=== PATIENT | male | born 1960 | race Caucasian/White ===

== ENCOUNTER 2024-04-22 11:18 | Emergency (ER) | payer MEDICARE, OTHER, SELFPAY ==
[2024-04-22] VITALS (7 sets, daily range): BP systolic 132–156; BP diastolic 79–141; BMI 34.5
[2024-04-22 11:44] LABS: % Basophils 0.3 % (0-2); % Eosinophils 0.5 % (0-6); % Immature Granulocytes 0.6 % (0-0.5); % Lymphocytes 13.7 % (20.5-51.1); % Neutrophils 70.9 % (42.2-75.2); Absolute Immature Granulocytes 0.1 10^3/uL (0-0.05); Absolute Lymphocytes 1.1 10^3/uL (1.2-3.4); Absolute Monocytes 1.1 10^3/uL (0.1-0.6); Absolute Neutrophils 5.5 10^3/uL (1.4-6.5); Hematocrit 49.5 % (39.0-52.0); Hemoglobin 16.7 g/dL (13.0-18.0); Mean Corp Hgb Conc. 33.7 g/dL (33.0-37.0); Mean Corpuscular Hgb 31.3 pg (27.0-31.0); Mean Corpuscular Volume 92.9 fL (80.0-94.0); Mean Platelet Volume 10.8 fL (7.4-10.4); Nucleated Red Blood Cells % 0 % (-); Platelet Count 212 10^3/uL (130-400); Red Blood Cell Count 5.33 10^6/uL (4.70-6.10); Red Cell Dist. Width 12.2 % (11.5-14.5); White Blood Cell Count 7.8 10^3/uL (4.8-10.8)
--- NOTE | 2024-04-22 11:50 | ED.GENMED ---
History of Present Illness
General
Chief Complaint: Male Genito-Urinary Symptoms
Source: patient
Exam Limitations: none
Time Seen by Provider: 04/22/24 11:49
Nursing documentation reviewed up to this point in time: agreed with
History of Present Illness
History of Present Illness:
64-year-old male with history of CVA, COPD, CHF, HTN, HLD, GERD, BPH, chronic renal failure, UTIs, bipolar, schizoaffective disorder presents from [facility] stating 'I have blood in my urine.' 'My bladder and my penis hurt' when he urinates,
discomfort in bladder and penis is 'discomfort' but painful with urinating. States he noted clots in his urine.
Denies fever/chills. Denies n/v/d/c.
States he had similar symptoms in the past and needed 'surgery'
Past History
Past History
ED Past Medical History: CHF, COPD, HTN, Hypercholesterolemia and Renal failure
ED Past Surgical History: Other (removal L kidney cyst, knee surgery)
Social History
Tobacco: Former smoker
Alcohol: None
Drug: None
Review of Systems
Review of Systems
Allergies reviewed?: Yes
All Other Systems: ROS reviewed and negative except as documented in HPI and ROS
Constitutional: Denies fever or chills
Respiratory: Denies trouble breathing
Cardiac: Denies chest pain
ABD/GI: Denies nausea, vomiting, diarrhea, constipated or anorexia
: Reports dysuria and bleeding; Denies frequency, flank pain, difficulty voiding or urgency
Musculoskeletal: Reports edema (Bilateral lower extremity lymphedema)
Skin: Reports no symptoms
Neurological: Denies headache
Phy Exam
Physical Exam
Physical Exam:
GENERAL: No acute distress. A&Ox3.
CONSTITUTIONAL: Afebrile.
EYES: clear, conjunctivae normal
Neck: Supple
ENMT: moist mucus membranes
RESPIRATORY: Regular respirations, nonlabored, lungs clear.
CARDIOVASCULAR: Regular rate and rhythm, no murmurs, no rubs.
GI: Soft, nontender, normal BS
: Circumcised penis, normal-appearing external genitalia.
MUSCULOSKELETAL: Bilateral chronic lymphedema lower extremities.
SKIN: Warm, dry, pink
PSYCH: Normal mood and affect. Well kept, interactive and appropriate
NEUROLOGIC: Awake, alert and oriented. No focal neurological deficits
Course
Orders/Labs/Results
Orders:
Orders
04/22/24 11:34
Complete Blood Count/With Diff Urgent
Comprehensive Metabolic Panel Urgent
UA Reflex to Culture [Urinalysis Reflex To Culture] Urgent
Date Specimen was Collected: 04/22/24
Time Specimen was Collected: 11:33
Urine Microscopic Reflex Cult Urgent
04/22/24 12:52
CT Abd/pel Without Iv Or Oral Urgent
Comment:
Reason For Exam: hematuria w clots
04/22/24 16:40
Sulfamethox./Trimethoprim Ds [Bactrim Ds 800 mg/160 mg] 1 tablet PO NOW STA
Abnormal Lab Results
04/22/24
11:34
MCH 31.3 H pg
(27.0-31.0)
MPV 10.8 H fL
(7.4-10.4)
Abs Immat Gran (auto) 0.1 H 10^3/uL
(0-0.05)
Absolute Lymphs (auto) 1.1 L 10^3/uL
(1.2-3.4)
Absolute Monos (auto) 1.1 H 10^3/uL
(0.1-0.6)
Immature Gran % 0.6 H %
(0-0.5)
Lymphocytes % 13.7 L %
(20.5-51.1)
Monocytes % 14.0 H %
(1.7-9.3)
Carbon Dioxide 34 H mmol/L
(22-30)
BUN 29 H mg/dl
(9-20)
Glucose 114 H mg/dl
(70-99)
Ur Occult Blood Reflex 4+ A
(Negative)
Leukocyte Esterase Rfl Trace A
(Negative)
Urine RBC 70-80 A /HPF
(0-2)
Urine Albumin (Reflex) 3+ A
(Neg - Trace)
04/22/24 11:34
04/22/24 11:34
Vital Signs
Initial and Last Documented VS:
Initial Vital Signs
Pulse Resp Pulse Ox
82 22 94
04/22/24 11:27 04/22/24 11:27 04/22/24 11:27
Last Documented Vital Signs
Temp Pulse Resp BP Pulse Ox
98.2 F 77 15 144/111 93
04/22/24 11:30 04/22/24 17:30 04/22/24 17:30 04/22/24 17:00 04/22/24 16:30
MDM/Problems Addressed
Differential Diagnosis Includes:
UTI, malignancy, kidney stone.
MDM/Problems Addressed:
64-year-old male with history of CVA, COPD, CHF, HTN, HLD, GERD, BPH, chronic renal failure, UTIs, bipolar, schizoaffective disorder presents from [facility] stating 'I have blood in my urine.' 'My bladder and my penis hurt' when he urinates,
discomfort in bladder and penis is 'discomfort' but painful with urinating. States he noted clots in his urine.
Denies fever/chills. Denies n/v/d/c.
States he had similar symptoms in the past and needed 'surgery'
12:30 p.m.
CBC normal
CMP with no clinically significant abnormality
U/A shows no infection 4+ blood, 70-80 RBCs
4:[address] scan abd/pelvis plain: Radiology report read: IMPRESSION:
1. Nonspecific moderate concentric bladder wall thickening, slightly eccentric anteriorly. No discrete masses identified or polypoid thickening. No bladder stones or diverticula. Findings could be related to chronic outlet obstruction (although
prostate is non enlarged) or cystitis. Correlation with urinalysis recommended. Given slightly eccentric thickening anteriorly, cystoscopy may also be required for further evaluation.
2. No hydronephrosis or nephrolithiasis. Mild bilateral perinephric stranding.
3. Moderate-sized hiatal hernia.
4. 15 mm left adrenal nodule.
5. Degenerative disc disease within lumbar spine with nonspecific sclerosis involving most of the L3 vertebral body.
6. Additional findings above.
Full explanation given to pt and all questions answered.
Will have pt f/u with Urology
Written rx for Bactrim DS BID x 7 days sent with him to [place]
*Critical Care Note
Total Time (30-74mins, 75-104mins- exclusive of procedures): Not Applicable
ED Attending Note
-
Portions of this chart may have been created with voice recognition software.� Occasional wrong word or��sound alike� substitutions may have occurred due to the inherent limitations of voice recognition software.
Discharge Plan
Departure
Patient Disposition: Fdc/SNF
Date of Disposition: 04/22/24
Time of Disposition: 16:35
Condition: Fair
Discharge Problem:
Hematuria, Cystitis
Instructions: Urinary tract infections in adults, Blood in the Urine (Hematuria), Adult (DC)
Prescriptions:
New
sulfamethoxazole-trimethoprim [Bactrim DS] 800-160 mg tablet
1 tab PO BID Qty: 14 0RF
No Action
ipratropium-albuterol [DuoNeb] 0.5 mg-3 mg(2.5 mg base)/3 mL Solution For Nebulization
3 ml INHALATION R Q4HPRN PRN (Reason: SOB)
atorvastatin [Lipitor] 10 mg Tablet
10 mg PO HS
clonazepam 1 mg Tablet
1 mg PO BID
haloperidol 1 mg Tablet
1.5 mg PO HS
haloperidol 1 mg Tablet
1 mg PO BID
divalproex [Depakote] 500 mg Tablet,Delayed Release (Dr/Ec)
500 mg PO DAILY
divalproex [Depakote] 500 mg Tablet,Delayed Release (Dr/Ec)
1,000 mg PO HS
aspirin 81 mg Tablet,Delayed Release (Dr/Ec)
81 mg PO DAILY
carvedilol [Coreg] 3.125 mg Tablet
3.125 mg PO BID
tamsulosin [Flomax] 0.4 mg Capsule
0.8 mg PO HS
bisacodyl [Dulcolax (bisacodyl)] 10 mg Suppository
10 mg [place] DAILYPRN PRN (Reason: IF NO BM AFTR MOM)
ferrous sulfate 325 mg (65 mg iron) Tablet
325 mg PO DAILY
Fleet Enema 19-7 gram/118 mL Enema
118 ml [place] DAILYPRN PRN (Reason: IF NO BM AFTR DULCOLAX)
docusate sodium [Colace] 100 mg Capsule
100 mg PO BID
albuterol sulfate [ProAir HFA] 90 mcg/actuation Hfa Aerosol Inhaler
2 puff INHALATION R Q4HPRN PRN (Reason: SOB)
fluticasone propionate [Flovent] 110 mcg/actuation Hfa Aerosol Inhaler
1 puff INHALATION R BID
saliva stimulant comb. no.3 [place],Non-Aerosol
3 applic MUCOUS MEMBRANE TID
acetaminophen [Tylenol] 325 mg Tablet
650 mg PO Q4HPRN PRN (Reason: MILD PAIN)
Theragen Tablet
1 tab PO DAILY
ofloxacin 0.3 % Drops
2 drp OTIC (EAR) QID
magnesium hydroxide [Milk of Magnesia] 400 mg/5 mL Suspension
2,400 mg PO [id number] PRN (Reason: CONSTIPATION)
pantoprazole [Protonix] 40 mg Tablet,Delayed Release (Dr/Ec)
40 mg PO DAILY
vitamin B complex [B Complete] Tablet
1 tab PO DAILY
quetiapine [Seroquel] 50 mg Tablet
350 mg PO HS
calcium carbonate-vitamin D3 [Calcium 500 + D] 500 mg-10 mcg (400 unit) Tablet
1 tab PO DAILY
melatonin 5 mg Tablet
5 mg PO HS
Referrals:
Dalton Martinez I., [Family Provider] -
Magdiel Pérez MD [Active] - Next open appointment
Activity Restrictions/Additional Instructions:
As we discussed, your blood work shows nothing worrisome.
Your CT scan shows some bladder wall thickening and you may have 'cystitis' an infection/inflammation of the bladder wall
I have prescribed an antibiotic for you and you should follow up with the Urologist within the next month as you may need to have him look up into the bladder with a scope.
You may note intermittent blood in the urine until the inflammation/infection clears.
Interventions
Interventions:
*Risk Screen - Suicide Last Done: 04/22/24 11:32
*General Assessment Last Done: 04/22/24 11:32
*Neglect/Abuse Screening Last Done: 04/22/24 11:32
ED- Fall Risk Assessment Last Done: 04/22/24 17:33
*ED COVID-19 Vaccine History Last Done: 04/22/24 11:32
*Nursing Disposition Last Done: 04/22/24 17:33
ED-Male Genitourinary Assessment Last Done: 04/22/24 11:39
Discharge Date and Time
Discharge Date/Time: 04/22/24 17:58
Print Language: KHMER
[2024-04-22 12:02] LABS: ALT (SGPT) 12 U/L (0-50); AST (SGOT) 21 U/L (17-59); Albumin 4.2 g/dl (3.5-5.0); Alkaline Phosphatase 68 U/L (38-126); Blood Urea Nitrogen 29 mg/dl (9-20); Calcium 10.1 mg/dl (8.4-10.2); Carbon Dioxide 34 mmol/L (22-30); Chloride 99 mmol/L (98-107); Estimated Creatinine Clearance 74 ml/min; Glucose 114 mg/dl (70-99); Potassium 4.2 mmol/L (3.5-5.1); Sodium 142 mmol/L (135-145); Total Bilirubin 0.3 mg/dl (0.2-1.3); Total Protein 7.2 g/dl (6.3-8.2); eGFR > 60.00
[2024-04-22 12:04] LABS: Urine Albumin 3+ (Neg - Trace); Urine Bilirubin Negative (Negative); Urine Character Slightly Cloudy (Clear); Urine Color Yellow; Urine Glucose Negative (Negative); Urine Ketone Negative (Negative); Urine Leukocyte Trace (Negative); Urine Nitrite Negative (Negative); Urine Occult Blood 4+ (Negative); Urine Specific Gravity 1.015 (<1.030); Urine Urobilinogen Negative (Neg - 1+); Urine pH 6.5 (5.0-9.0)
[2024-04-22 12:34] LABS: Urine Red Blood Cell 70-80 /HPF (0-2); Urine Squamous Cell 0-2 /LPF (Few)
[2024-04-22] MEDS: BACTRIM DS 800 MG/160 MG 1 TABLET PO (16:56)
== END 2024-04-22 17:58 ==
LOC: EMR 11:18
PROVIDERS: EMERGENCY PHYSICIAN Emergency Medicine; FAMILY PHYSICIAN Internal Medicine
DX: N30.91 Cystitis, unspecified with hematuria (principal); I13.0 Hypertensive heart and chronic kidney disease with heart failure and stage 1 through stage 4 chronic kidney disease, or unspecified chronic kidney disease; N18.9 Chronic kidney disease, unspecified; I50.9 Heart failure, unspecified; Z87.891 Personal history of nicotine dependence; E78.00 Pure hypercholesterolemia, unspecified; F25.9 Schizoaffective disorder, unspecified
CPT/HCPCS: 99284; 74176; 80053; 81003; 81015; 85025

== ENCOUNTER → 2024-04-26 14:35 | Outpatient (REF) | payer MEDICARE, OTHER, SELFPAY ==
[2024-04-26 17:23] LABS: Urine Albumin Negative (Neg - Trace); Urine Bilirubin Negative (Negative); Urine Character Clear (Clear); Urine Color Yellow; Urine Glucose Negative (Negative); Urine Ketone Negative (Negative); Urine Leukocyte Negative (Negative); Urine Nitrite Negative (Negative); Urine Occult Blood Negative (Negative); Urine Urobilinogen Negative (Neg - 1+); Urine pH 6.5 (5.0-9.0)
== END ==
LOC: CLAB 14:35
PROVIDERS: ATTENDING PHYSICIAN Urology
DX: R31.0 Gross hematuria (principal); N32.89 Other specified disorders of bladder
CPT/HCPCS: 81003; 88112

== ENCOUNTER 2024-05-16 11:54 | Emergency (ER) | payer MEDICARE, OTHER, SELFPAY ==
[2024-05-16 12:07] VITALS: BP 145/80
[2024-05-16 13:15] LABS: % Basophils 0.4 % (0-2); % Eosinophils 0.8 % (0-6); % Immature Granulocytes 0.4 % (0-0.5); % Lymphocytes 27.8 % (20.5-51.1); % Monocytes 14.9 % (1.7-9.3); % Neutrophils 55.7 % (42.2-75.2); Absolute Lymphocytes 1.4 10^3/uL (1.2-3.4); Absolute Monocytes 0.7 10^3/uL (0.1-0.6); Absolute Neutrophils 2.8 10^3/uL (1.4-6.5); Hematocrit 48.4 % (39.0-52.0); Hemoglobin 16.1 g/dL (13.0-18.0); Mean Corp Hgb Conc. 33.3 g/dL (33.0-37.0); Mean Corpuscular Hgb 31.1 pg (27.0-31.0); Mean Corpuscular Volume 93.4 fL (80.0-94.0); Nucleated Red Blood Cells % 0 % (-); Platelet Count 211 10^3/uL (130-400); Red Blood Cell Count 5.18 10^6/uL (4.70-6.10); Red Cell Dist. Width 12.5 % (11.5-14.5)
[2024-05-16 13:34] LABS: ALT (SGPT) 15 U/L (0-50); AST (SGOT) 22 U/L (17-59); Albumin 3.8 g/dl (3.5-5.0); Alkaline Phosphatase 63 U/L (38-126); Blood Urea Nitrogen 30 mg/dl (9-20); Carbon Dioxide 33 mmol/L (22-30); Chloride 100 mmol/L (98-107); Glucose 91 mg/dl (70-99); Potassium 4.1 mmol/L (3.5-5.1); Sodium 140 mmol/L (135-145); Total Bilirubin 0.3 mg/dl (0.2-1.3); Total Protein 6.8 g/dl (6.3-8.2); eGFR > 60.00
[2024-05-16 16:05] VITALS: BP 168/94
--- NOTE | 2024-05-16 16:53 | ED.GENMED ---
History of Present Illness
General
Chief Complaint: Back Pain
Source: patient
Exam Limitations: none
Time Seen by Provider: 05/16/24 15:20
Nursing documentation reviewed up to this point in time: agreed with
History of Present Illness
History of Present Illness:
Patient is a 64-year-old male with past medical history of COPD CVA hypertension CHF GERD BPH chronic renal failure UTIs bipolar schizoaffective disorder who presents from [facility] for evaluation. Patient complains' my kidneys hurt.' He
points to his lower back. Patient was seen here April 22 for cystitis and had hematuria at that time. He was treated for UTI and discharged on Bactrim at that time.
He denies any fever chills he denies any present hematuria. He denies any injury but does report when he moves his back from [id number] he does have discomfort. He denies any lower extremity pain. He denies any incontinence bowel bladder.
Denies any recent fever chills
Past History
Past History
ED Past Medical History: CHF, COPD, HTN, Hypercholesterolemia and Renal failure
ED Past Surgical History: Other (removal L kidney cyst, knee surgery)
Social History
Tobacco: Former smoker
Alcohol: None
Drug: None
Review of Systems
Review of Systems
Allergies reviewed?: Yes
All Other Systems: ROS reviewed and negative except as documented in HPI and ROS
Constitutional: Reports no symptoms
Respiratory: Reports no symptoms
Cardiac: Reports no symptoms
ABD/GI: Reports no symptoms; Denies abdominal pain, nausea, vomiting or diarrhea
: Reports flank pain; Denies dysuria, incontinence, urgency or discharge
Musculoskeletal: Reports back pain
Skin: Reports no symptoms
Neurological: Reports no symptoms
Psychiatric: Reports no symptoms
Phy Exam
General Physical Exam
General Presentation: no apparent distress
General age: appears stated age
General Skin: warm and dry
General Habitus: normal
General Mental: alert
General Hydration: appears well hydrated
Cardiovascular Exam
Cardiovascular Exam: regular rate/rhythm, no murmur and normal peripheral pulses
Pulmonary Exam
Pulmonary Exam: lungs clear and no respiratory distress
Gastrointestinal Exam
Gastrointestinal Exam: normal bowel sounds, non tender and soft
Neurological Exam
Neurological Exam: alert and oriented x3
Musculoskeletal Exam
Musculoskeletal Exam: full ROM
Skin Exam
Skin Exam: normal color and warm/dry
Psychiatric Exam
Psychiatric Exam: normal mood/affect
Course
Orders/Labs/Results
Orders:
Orders
05/16/24 12:23
Complete Blood Count/With Diff Urgent
Comprehensive Metabolic Panel Urgent
05/16/24 17:04
CT Abd/pel Without Iv Or Oral Urgent
Comment:
Reason For Exam: flank pain
05/16/24 17:47
UA Reflex to Culture [Urinalysis Reflex To Culture] Urgent
Date Specimen was Collected: 05/16/24
Time Specimen was Collected: 17:15
Abnormal Lab Results
05/16/24
12:23
MCH 31.1 H pg
(27.0-31.0)
MPV 11.0 H fL
(7.4-10.4)
Absolute Monos (auto) 0.7 H 10^3/uL
(0.1-0.6)
Monocytes % 14.9 H %
(1.7-9.3)
Carbon Dioxide 33 H mmol/L
(22-30)
BUN 30 H mg/dl
(9-20)
05/16/24 12:23
05/16/24 12:23
Vital Signs
Initial and Last Documented VS:
Initial Vital Signs
Temp Pulse Resp BP Pulse Ox
98.2 F 72 16 145/80 98
05/16/24 12:07 05/16/24 12:07 05/16/24 12:07 05/16/24 12:07 05/16/24 12:07
Last Documented Vital Signs
Temp Pulse Resp BP Pulse Ox
98.2 F 72 17 168/94 95
05/16/24 12:07 05/16/24 16:05 05/16/24 16:05 05/16/24 16:05 05/16/24 16:05
MDM/Problems Addressed
MDM/Problems Addressed:
Patient is a 64 yr old male who presented to the ER complaining of back pain. He complained' my kidneys hurt.' Patient was seen here previously April for hematuria cystitis and was treated for UTI at the time. He denies any hematuria now.
He presents awake alert no acute distress denies any abdominal pain. Abdomen soft and nontender. CAT scan was done which does show mild diffuse bladder wall thickening however symptoms are much improved from prior CAT scan there is stable left
adrenal mass no other acute findings. Patient's UA is negative for infection no RBCs. He denies any fevers and is afebrile here with a normal white count renal function reviewed BUN is elevated which is consistent with prior labs.
On exam patient is tender throughout the back on exam reports pain occurs when he moves [id number]. Patient has been resting comfortably sleeping here in the ER no acute distress. Likely musculoskeletal back pain however no concerning
symptoms. will dc/back to [facility]
*Radiology
Radiology exam reviewed: radiology read reviewed
*Pulse Oximetry
Patient hypoxic: no
*Critical Care Note
Total Time (30-74mins, 75-104mins- exclusive of procedures): Not Applicable
ED Attending Note
-
Portions of this chart may have been created with voice recognition software.� Occasional wrong word or��sound alike� substitutions may have occurred due to the inherent limitations of voice recognition software.
Discharge Plan
Departure
Patient Disposition: Snf/SNF
Date of Disposition: 05/16/24
Time of Disposition: 19:02
Patient with high blood pressure during this ER visit?: Yes
Condition: Fair
Covid-19: Not Applicable
Discharge Problem:
Back pain
Instructions: Low Back Pain (DC)
Prescriptions:
No Action
ipratropium-albuterol [DuoNeb] 0.5 mg-3 mg(2.5 mg base)/3 mL Solution For Nebulization
3 ml INHALATION R Q4HPRN PRN (Reason: SOB)
atorvastatin [Lipitor] 10 mg Tablet
10 mg PO HS
clonazepam 1 mg Tablet
1 mg PO BID
haloperidol 1 mg Tablet
1.5 mg PO HS
haloperidol 1 mg Tablet
1 mg PO BID
divalproex [Depakote] 500 mg Tablet,Delayed Release (Dr/Ec)
500 mg PO DAILY
divalproex [Depakote] 500 mg Tablet,Delayed Release (Dr/Ec)
1,000 mg PO HS
aspirin 81 mg Tablet,Delayed Release (Dr/Ec)
81 mg PO DAILY
carvedilol [Coreg] 3.125 mg Tablet
3.125 mg PO BID
tamsulosin [Flomax] 0.4 mg Capsule
0.8 mg PO HS
bisacodyl [Dulcolax (bisacodyl)] 10 mg Suppository
10 mg [place] DAILYPRN PRN (Reason: IF NO BM AFTR MOM)
ferrous sulfate 325 mg (65 mg iron) Tablet
325 mg PO DAILY
Fleet Enema 19-7 gram/118 mL Enema
118 ml [place] DAILYPRN PRN (Reason: IF NO BM AFTR DULCOLAX)
docusate sodium [Colace] 100 mg Capsule
100 mg PO BID
albuterol sulfate [ProAir HFA] 90 mcg/actuation Hfa Aerosol Inhaler
2 puff INHALATION R Q4HPRN PRN (Reason: SOB)
fluticasone propionate [Flovent] 110 mcg/actuation Hfa Aerosol Inhaler
1 puff INHALATION R BID
saliva stimulant comb. no.3 [place],Non-Aerosol
3 applic MUCOUS MEMBRANE TID
acetaminophen [Tylenol] 325 mg Tablet
650 mg PO Q4HPRN PRN (Reason: MILD PAIN)
Theragen Tablet
1 tab PO DAILY
ofloxacin 0.3 % Drops
2 drp OTIC (EAR) QID
magnesium hydroxide [Milk of Magnesia] 400 mg/5 mL Suspension
2,400 mg PO [id number] PRN (Reason: CONSTIPATION)
pantoprazole [Protonix] 40 mg Tablet,Delayed Release (Dr/Ec)
40 mg PO DAILY
vitamin B complex [B Complete] Tablet
1 tab PO DAILY
quetiapine [Seroquel] 50 mg Tablet
350 mg PO HS
calcium carbonate-vitamin D3 [Calcium 500 + D] 500 mg-10 mcg (400 unit) Tablet
1 tab PO DAILY
melatonin 5 mg Tablet
5 mg PO HS
sulfamethoxazole-trimethoprim [Bactrim DS] 800-160 mg tablet
1 tab PO BID Qty: 14 0RF
Referrals:
Magdiel Pérez MD [Family Provider] -
Activity Restrictions/Additional Instructions:
Patient's CAT scan was unremarkable for any concerning findings. He did not have a fever here in the ER his white count was normal his urine was negative for infection negative for blood. His BUN was elevated however this is baseline. Patient
reports pain is worse with movement likely musculoskeletal no other concerning findings. He should be evaluated by primary physician in the next several days.
Interventions
Interventions:
*Risk Screen - Suicide Last Done: 05/16/24 12:07
*Neglect/Abuse Screening Last Done: 05/16/24 12:07
Discharge Date and Time
Print Language: GHANAIAN
[2024-05-16 18:15] LABS: Urine Albumin Negative (Neg - Trace); Urine Bilirubin Negative (Negative); Urine Character Clear (Clear); Urine Color Yellow; Urine Glucose Negative (Negative); Urine Ketone Negative (Negative); Urine Leukocyte Negative (Negative); Urine Nitrite Negative (Negative); Urine Occult Blood Negative (Negative); Urine Specific Gravity 1.015 (<1.030); Urine Urobilinogen Negative (Neg - 1+)
[2024-05-16 22:06] VITALS: BP 176/101
== END 2024-05-17 00:18 ==
LOC: EMR 11:54
PROVIDERS: Emergency Medicine; Nurse Practitioner; EMERGENCY PHYSICIAN Emergency Medicine; FAMILY PHYSICIAN Urology
DX: M54.50 Low back pain, unspecified (principal); R10.9 Unspecified abdominal pain; E27.9 Disorder of adrenal gland, unspecified; I13.0 Hypertensive heart and chronic kidney disease with heart failure and stage 1 through stage 4 chronic kidney disease, or unspecified chronic kidney disease; I50.9 Heart failure, unspecified; N18.9 Chronic kidney disease, unspecified; E78.00 Pure hypercholesterolemia, unspecified; K21.9 Gastro-esophageal reflux disease without esophagitis; N40.0 Benign prostatic hyperplasia without lower urinary tract symptoms; F25.0 Schizoaffective disorder, bipolar type; J44.9 Chronic obstructive pulmonary disease, unspecified; Z79.82 Long term (current) use of aspirin; Z87.440 Personal history of urinary (tract) infections; Z87.891 Personal history of nicotine dependence; Z86.73 Personal history of transient ischemic attack (TIA), and cerebral infarction without residual deficits; Z88.8 Allergy status to other drugs, medicaments and biological substances
CPT/HCPCS: 99284; 74176; 80053; 81003; 85025

== ENCOUNTER 2024-09-20 05:26 | Inpatient (IN) | payer MEDICARE, OTHER, SELFPAY ==
[2024-09-20] VITALS (13 sets, daily range): BP systolic 98–161; BP diastolic 73–105; BMI 34.8; BMI 34.5
[2024-09-20] MEDS: ATIVAN 1 MG IV (00:39)
[2024-09-20] MEDS: HALDOL 5 MG IV (00:40)
[2024-09-20] MEDS: KETALAR 100 MG IV (00:59)
--- NOTE | 2024-09-20 01:00 | EDRN ---
On initial arrival to ED, pt. was extremely agitated/combative, was unable to follow commands. Pt. was placed in 4 point velcro restraints per verbal MD orders. Pt. was then medicated, refer to MAR. After approximately 20 minutes, pt. became more
calm and was redirectable, was no longer risk to self/staff, restraints removed as no longer indicated.
[2024-09-20 01:10] LABS: Hematocrit 41.1 % (39.0-52.0); Hemoglobin 13.6 g/dL (13.0-18.0); Mean Corp Hgb Conc. 33.1 g/dL (33.0-37.0); Mean Corpuscular Hgb 31.1 pg (27.0-31.0); Mean Corpuscular Volume 93.8 fL (80.0-94.0); Mean Platelet Volume 10.8 fL (7.4-10.4); Platelet Count 259 10^3/uL (130-400); Red Blood Cell Count 4.38 10^6/uL (4.70-6.10); Red Cell Dist. Width 12.3 % (11.5-14.5); White Blood Cell Count 10.9 10^3/uL (4.8-10.8)
[2024-09-20 01:26] LABS: ALT (SGPT) 23 U/L (0-50); AST (SGOT) 38 U/L (17-59); Albumin 4.1 g/dl (3.5-5.0); Alkaline Phosphatase 97 U/L (38-126); Blood Urea Nitrogen 31 mg/dl (9-20); Calcium 9.8 mg/dl (8.4-10.2); Carbon Dioxide 31 mmol/L (22-30); Chloride 110 mmol/L (98-107); Estimated Creatinine Clearance 72 ml/min; Glucose 128 mg/dl (70-99); Magnesium 2.1 mg/dl (1.6-2.3); Potassium 4.4 mmol/L (3.5-5.1); Sodium 149 mmol/L (135-145); Total Bilirubin 0.9 mg/dl (0.2-1.3); Total Protein 6.9 g/dl (6.3-8.2); eGFR > 60.00
[2024-09-20 01:30] LABS: Depakane 72.3 ug/ml (50.0-120.0)
[2024-09-20] MEDS: DUONEB 3 ML INH ×3 (01:51→11:19)
[2024-09-20] MEDS: NSS 500 IV (01:53)
--- NOTE | 2024-09-20 01:54 | ED.GENMED ---
History of Present Illness
General
Chief Complaint: Change in Mental Status
Source: patient, ambulance crew and long term
Exam Limitations: none
Time Seen by Provider: 09/20/24 00:31
Nursing documentation reviewed up to this point in time: agreed with
History of Present Illness
History of Present Illness:
Patient with history of schizophrenia, recent discharge from inpatient psychiatric facility, presents to ED from long term secondary to recurrent 'behavioral disturbance'. However, when paramedics arrived at scene, patient who is normally awake,
alert, and conversational, was exhibiting 'mumbled speech'. Patient is able to follow commands intermittently however. Patient is able to move extremities spontaneously. Unable to obtain any further information at this time. Secondary to
agitation and not following commands, decision made to provide sedation along with restraints.
Past History
Past History
ED Past Medical History: CHF, COPD, HTN, Hypercholesterolemia and Renal failure
ED Past Surgical History: Other (removal L kidney cyst, knee surgery)
Social History
Tobacco: Former smoker
Alcohol: None
Drug: None
Review of Systems
Review of Systems
Allergies reviewed?: Yes
Unable to obtain full review of systems at this time due to: due to acuity
All Other Systems: Not applicable
Phy Exam
Physical Exam
Physical Exam:
Physical Exam
General: mild distress, not acutely ill. afebrile. agitated
Head: nc/at.
Neck: supple. normal range of motion.
Heart: s1/s2 regular rate and rhythm
Lungs: mild respiratory distress. wheezing bilaterally
Abdomen: normal bowel sounds. not tender.
Neuro: alert and awake. Moving extremities spontaneously.
Skin: no rash
Psychiatric: agitated and uncooperative
Extremities: nonpitting edema.
Course
Orders/Labs/Results
Orders:
Orders
09/20/24 00:33
Lorazepam [Ativan] 2 mg .ROUTE .STK-MED ONE
09/20/24 00:34
Haloperidol Lactate [Haldol] 5 mg .ROUTE .STK-MED ONE
09/20/24 00:38
CT Head W/o Iv Contrast Urgent
Comment:
Reason For Exam: mental status change w speech impairment
Haloperidol Lactate [Haldol] 5 mg IV NOW STA
Lorazepam [Ativan] 1 mg IV NOW STA
09/20/24 00:39
Electrocardiogram (*1) Urgent
Reason for Study: QTc Monitoring
EKG- Treatment ONCE
09/20/24 00:52
Complete Blood Count/No Diff Urgent
Comprehensive Metabolic Panel Urgent
Magnesium Urgent
NT-proBNP Urgent
Comment: ADDED
TSH Urgent
Valproic Acid Level [Depakane] Urgent
09/20/24 00:57
Ketamine [Ketalar] 100 mg IV NOW STA
Ketamine [Ketalar] 200 mg .ROUTE .STK-MED ONE
09/20/24 01:31
COVID-19 Antigen Urgent
Source: Nasal Swab
INF RAPID [Influenza A+B Rapid Molecular] Urgent
JANE Source: Nasal Swab
Specimen Description:
MRSA Screen Routine
JANE Source: Nose
Specimen Description:
09/20/24 01:45
0.9% Sodium Chloride 500 ml [Nss] 500 ml IV BOLUS
09/20/24 01:46
Straight cath- Treatment ONCE
09/20/24 01:50
Ipratropium/Albuterol Sulfate [Duoneb] 3 ml .ROUTE .STK-MED ONE
09/20/24 01:51
Ipratropium/Albuterol Sulfate [Duoneb] 3 ml INH R NOW ONE
09/20/24 01:54
Add On- LAB Urgent
Tests Added?: proBNP
CR Chest Portable - 1 View Urgent
Comment:
Reason For Exam: sob
Reason Study Needs to be Portable: Patient Unstable
09/20/24 02:18
Urinalysis Reflex To Culture Urgent
Date Specimen was Collected: 09/20/24
Time Specimen was Collected: 02:17
Urine Microscopic Reflex Cult Urgent
09/20/24 02:25
CT Head & Neck Angio W/wo IV Urgent
Comment:
Reason For Exam: slurred speech
Dexamethasone Sod Phosphate [Decadron] 6 mg IV NOW STA
09/20/24 04:38
Admit/Transfer Patient As Directed
Co-Sign Provider:
Level of Care: Inpatient admission
Assign to:: Telemetry
Physician / Group: Daniel
Diagnosis: Dehydration, Agitation
Reason for Telemetry: CVA/TIA
Date to Stop Telemetry: 09/23/24
Time to Stop Telemetry: 11:00
Reason for Hospitalization: Dehydration, Agitation
Expected length of stay greater than two midnights?: Yes
ELOS- Estimated Length of Stay in days: 2
I certify the patient meets the requirements for IP care: Yes
PRN Pain Medication Management As Directed
May give lesser potent ordered pain med per pt: Yes
preference::
Protocol:: Medication orders for pain may be administered in a
manner that supports deferring to patient preference
when the pt is:
- Requesting an ordered lesser potent pain medication.
Least to most potent pain medications are defined
as: acetaminophen < NSAID < tramadol < opioids
(morphine, oxycodone, hydromorphone).
- Requesting a lesser dose of the same medication IF
ORDERED.
- Requesting a less intrusive route of administration
if both routes are prescribed by the provider (PO <
IV).
09/20/24 04:40
Code Status As Directed
Resuscitation Status: Full Code
09/20/24 05:10
0.45% Sodium Chloride 1000 ml [0.45%NaCl] 1,000 ml IV 65 mls/hr
09/20/24 05:35
Basic Metabolic Panel IN AM
Cardiovascular Evaluation IN AM
Complete Blood Count/No Diff IN AM
Depakane Urgent
Glycohemoglobin (HgbA1c) Routine
TSH Reflex To Free T4 Routine
09/20/24 05:50
Acetaminophen [Tylenol] 650 mg PO Q4HPRN PRN
Albuterol Nebs [Ventolin Nebules] 2.5 mg INH R Q4HPRN PRN
Divalproex Delayed Rel. 12 Hr [Depakote (12 Hr Release)] 1,000 mg PO HS
Haloperidol Lactate [Haldol] 1 mg IV Q4HPRN PRN
Tamsulosin [Flomax] 0.8 mg PO HS
09/20/24 05:50
Consult Notification Routine
Specialty to Notify: Psychiatry
Date consulting provider notified: 09/20/24
Time consulting provider notified: 08:23
Notified:: Provider
PSYCHIATRY CONSULT Routine
Consulting Provider: Valerio Lim
Was physician already notified: No
Reason for consult: Schizoaffective disorder
Activity As Directed
Activity Level: Ambulate
With Assistance
Bladder Scan As Directed
Follow Bladder Retention/Intermittent Cath Algorithm?: Yes
PRN if no void in __ hours: 6
Frequency: Per Retention Algorithm
If Bladder Scan Result >: 400
then:: Straight cath
EKG with chest pain [ECG as needed] As Directed
ECG as needed for:: Chest Pain
I/O [Intake/ Output] As Directed
Frequency: Per unit guidelines
Straight Cath As Directed
Frequency: Per Retention Algorithm
Additional Instructions: straight cath as needed per acute urinary retention algorithm for 24 hrs
Additional Instructions: for bladder scan greater than 400 mL
Vital Signs As Directed
Frequency: Per unit guidelines
Weight As Directed
Frequency: Daily
Oxygen Therapy [O2 Therapy] [RESP] Routine
Titrate/Wean O2 to maintain O2 sat greater than (%): 94
PT Consult [Pt Eval And Treat] Routine
Activity Level: Ambulate
With Assistance
Speech Therapy Eval & Treat Routine
DX Deep Vein Thrombosis Video Routine
09/20/24 Breakfast
Regular
At Your Request: Full Participation
Does patient need a safe tray?: No
MR Brain Without Contrast IN AM
Comment:
Reason For Exam: CVA / TIA
Recent pill cam endoscopy?: No
09/20/24 08:00
Aspirin Low Dose EC [Aspir Low (Enteric Coated)] 81 mg PO DAILY
Carvedilol [Coreg] 12.5 mg PO BID
Clonazepam [Klonopin] 1 mg PO BID
Docusate Sodium [Colace] 100 mg PO BID
Finasteride [Proscar] 5 mg PO DAILY
Ipratropium/Albuterol Sulfate [Duoneb] 3 ml INH R QID
Pantoprazole [Protonix] 40 mg PO DAILY
09/20/24 18:00
Atorvastatin [Lipitor] 40 mg PO QPM
Enoxaparin Sodium [Lovenox] 40 mg SC QPM
09/23/24 11:00
DC Protocol for Telemetry ONCE
Abnormal Lab Results
09/20/24 09/20/24
00:52 02:18
WBC 10.9 H 10^3/uL
(4.8-10.8)
RBC 4.38 L 10^6/uL
(4.70-6.10)
MCH 31.1 H pg
(27.0-31.0)
MPV 10.8 H fL
(7.4-10.4)
Sodium 149 H mmol/L
(135-145)
Chloride 110 H mmol/L
(98-107)
Carbon Dioxide 31 H mmol/L
(22-30)
BUN 31 H mg/dl
(9-20)
Glucose 128 H mg/dl
(70-99)
Urine Bacteria (Reflex) Few A
(Negative)
Urine Albumin (Reflex) 1+ A
(Neg - Trace)
09/20/24 00:52
09/20/24 00:52
Vital Signs
Initial and Last Documented VS:
Initial Vital Signs
Pulse Resp Pulse Ox
105 40 92
09/20/24 00:23 09/20/24 00:23 09/20/24 00:23
Last Documented Vital Signs
Temp Pulse Resp BP Pulse Ox
98.5 F 73 28 116/77 100
09/21/24 11:01 09/21/24 11:01 09/21/24 11:01 09/21/24 11:01 09/21/24 11:01
MDM/Problems Addressed
MDM/Problems Addressed:
Patient evaluated immediately upon arrival secondary to agitation and combativeness. Patient given Ativan and Haldol immediately, without improvement. As such, decision made to administer ketamine to obtain further studies.
Patient with continual incoherent speech noted, unclear etiology. Unknown time of onset of symptoms. As such, patient is not a candidate for tenecteplase.
CT head: no acute findings. Will order CTA head/neck
Patient also with likely an exacerbation of underlying COPD, with pulse ox desaturation to 88% on room air, requiring supplemental oxygen.
*Critical Care Note
Total Time (30-74mins, 75-104mins- exclusive of procedures): Not Applicable
ED Attending Note
-
Portions of this chart may have been created with voice recognition software.� Occasional wrong word or��sound alike� substitutions may have occurred due to the inherent limitations of voice recognition software.
Discharge Plan
Departure
Patient Disposition: Admit
Date of Disposition: 09/20/24
Time of Disposition: 02:27
Admit to: Telemetry
Presentation/result/management discussed w/ accepting MD/DO: Hospitalist
Discharge Problem:
Slurred speech, COPD exacerbation
Interventions
Interventions:
*Risk Screen - Suicide Last Done: 09/20/24 00:42
*General Assessment Last Done: 09/20/24 00:23
*Neglect/Abuse Screening Last Done: 09/20/24 00:23
*ED COVID-19 Vaccine History Last Done: 09/20/24 00:42
ED- Neurological Assessment Last Done: 09/20/24 04:10
ED Swallowing Screen Last Done: 09/20/24 05:05
[2024-09-20 01:55] LABS: TSH 0.88 uIU/ml (0.47-4.68)
[2024-09-20 02:06] LABS: COVID-19 Antigen Negative (Negative)
[2024-09-20 02:42] LABS: NT-proBNP 226 pg/ml
[2024-09-20] MEDS: DECADRON 6 MG IV (02:49)
[2024-09-20 03:25] LABS: Urine Albumin 1+ (Neg - Trace); Urine Bilirubin Negative (Negative); Urine Character Clear (Clear); Urine Color Yellow; Urine Glucose Negative (Negative); Urine Ketone Negative (Negative); Urine Leukocyte Negative (Negative); Urine Nitrite Negative (Negative); Urine Occult Blood Negative (Negative); Urine Urobilinogen Negative (Neg - 1+); Urine pH 6.5 (5.0-9.0)
[2024-09-20 03:58] LABS: Urine Bacteria Few (Negative); Urine Red Blood Cell 0-2 /HPF (0-2); Urine White Cell 0-2 /HPF (0-5)
--- NOTE | 2024-09-20 04:23 | HPS.HSE ---
Family Physician
-
Family Physician: Dalton Martinez
Chief Complaint
-
Altered Mental Status
History of Present Illness
Patient is a 64y M with PMH significant for schizoaffective disorder / bipolar, hypertension, CHF and prior CVA who presents to ED from local [facility] for evaluation of altered mental status. EMS was called to [facility] for report of agitation / behavioral
disturbance. On their arrival, they found patient to have slurred / garbled speech. he was brought to the ED for further evaluation. He was reportedly agitatd / combative in the ED and required sedation / restraints. At the time of my
examination, patient is awake and conversant. He is calm at present. He does have thick speech but no other focal neurologic deficits.
Patient states that he feels poorly after new addition of psych med during recent psychiatric [facility] ([facility] He complains of dry mouth and headache. He is asking to see Psychiatry.
Medical History
Past Medical History
Past Medical History: Reports Other
Additional Past Medical History:
Hypertension
ASCVD / Prior CVA
Schizoaffective Disorder
Bipolar Disorder
Chronic HFpEF
COPD
BPH
Obesity
Past Surgical History: Reports Other
Additional Past Surgical History:
Unknown
Social History
Tobacco: Former Smoker
Alcohol: None
Drug: None
Family History
Family History: Unable to Obtain
Allergies / Home Medications
Allergies reflects when Allergies were last updated in [employer].
Home Medications with original date entered in [employer]
Allergy/Medication List:
Allergies
Allergy/AdvReac Type Severity Reaction Status Date / Time
aripiprazole Allergy Unknown Verified 09/20/24 00:41
thiothixene Allergy Unknown Verified 09/20/24 00:41
Home Medications
acetaminophen 325 mg tablet (Tylenol) 650 mg PO Q6H 04/22/24
albuterol sulfate 90 mcg/actuation aerosol inhaler 2 puff inhalation R Q4HPRN PRN SOB 04/22/24
aspirin 81 mg tablet,delayed release 81 mg PO DAILY 04/22/24
atorvastatin 10 mg tablet (Lipitor) 40 mg PO HS 04/22/24
bisacodyl 10 mg rectal suppository (Dulcolax (bisacodyl)) 10 mg FL DAILYPRN PRN IF NO BM AFTR MOM 04/22/24
carvedilol 3.125 mg tablet (Coreg) 12.5 mg PO BID 04/22/24
clonazepam 1 mg tablet 1 mg PO BID 04/22/24
divalproex 500 mg tablet,delayed release (Depakote) 1,000 mg PO QHS 04/22/24
docusate sodium 100 mg capsule (Colace) 100 mg PO BID 04/22/24
magnesium hydroxide 400 mg/5 mL oral suspension (Milk of Magnesia) 2,400 mg PO [id number] PRN CONSTIPATION 04/22/24
melatonin 5 mg tablet 5 mg PO HS 04/22/24
pantoprazole 40 mg tablet,delayed release (Protonix) 40 mg PO DAILY 04/22/24
clozapine 50 mg tablet 250 mg PO QHS 09/20/24
finasteride 5 mg tablet 5 mg PO DAILY 09/20/24
ipratropium 0.5 mg-albuterol 3 mg (2.5 mg base)/3 mL nebulization soln 3 ml inhalation Q6H PRN sob 09/20/24
sodium phosphates 19 gram-7 gram/118 mL enema (Fleet Enema) 118 ml FL PRN PRN constipation 09/20/24
tamsulosin 0.4 mg capsule (Flomax) 0.8 mg PO QHS 09/20/24
Review of Systems
-
History Source: Patient
A 12 point ROS was completed and negative except as noted: Yes
Constitutional: Denies Fever
EENT: Reports Other (Dry mouth)
Respiratory: Denies Cough
Cardiac: Denies Chest Pain
Abdomen/GI: Denies Abdominal Pain
Musculoskeletal: Reports Edema
Neurological: Reports Headache; Denies Dizzy
Physical Exam
Vital Signs
Vital Signs
Temp Pulse Resp BP Pulse Ox
100.0 F 87 21 140/79 93
09/20/24 00:53 09/20/24 04:00 09/20/24 04:00 09/20/24 04:00 09/20/24 03:45
Physical Exam
General: Other (64y M in no acute distress.)
HEENT: Other (dry MM.)
Respiratory: Other (Decreased at bases - otherwise clear. No W/R/R.)
Cardiac: S1/S2 and Regular Rhythm; No Murmur
GI: Soft, Non Tender, Non Distended and Normal Bowel Sounds
Musculoskeletal: No Clubbing, No Cyanosis and Other (1-2+ pitting edema b/l LE)
Neuro: Awake and Alert
Psych: No Agitated
Laboratory Results
-
09/20/24 00:52
09/20/24 00:52
Laboratory Results
Total Bilirubin 0.9 mg/dl (0.2-1.3) 09/20/24 00:52
AST 38 U/L (17-59) 09/20/24 00:52
ALT 23 U/L (0-50) 09/20/24 00:52
Alkaline Phosphatase 97 U/L (38-126) 09/20/24 00:52
Impression/Plan
-
A/P: Patient is a 64y M with PMH significant for psychiatric illness, hypertension and prior CVA who presents to ED for evaluation of behavioral disturbance / speech abnormality.
Agitation / Behavioral Disturbance
Schizoaffective Disorder / Bipolar Disorder
- Admit for further evaluation and treatment.
- Likely baseline psychiatric illness exacerbated by dehydration, etc.
- Continue usual psychotropic med regimen.
- Psychiatry evaluation for any med adjustments - patient requested.
Dysarthria
History of TIA / CVA
- Suspect this is primarily secondary to dry mucus membranes.
- No aphasia. No other focal neurologic findings / complaints.
- CT head in the ED was unremarkable.
- Treat dehydration as noted below.
- Oral care.
- Follow for improvement.
- Monitor neurologic exam for any new findings.
Dehydration / Hypovolemia
- Na = 149. Hypotonic IVF overnight and follow labs / lytes for improvement.
- Encourage PO intake.
Transient Hypoxemia
COPD without Acute Exacerbation
- Noted in the ED after sedation.
- CXR unremarkable. No significant wheezing noted on exam.
- Continue inhaled medications. No systemic steroids.
- O2 supplementation as needed. Follow for improvement.
CKD III
- Stable. Renal function appears to be at usual baseline.
- Follow for any changes.
Chronic HF - Unknown Type
- Mild edema on exam - but patient appears generally 'dry' in terms of mucus membranes / skin turgor / etc.
- Follow I/Os, daily weights, etc.
DVT Prophylaxis: Lovenox
Code Status: Full
[2024-09-20] MEDS: 0.45%NACL 1000 IV ×2 (05:44→16:55)
[2024-09-20 05:53] LABS: Hematocrit 37.7 % (39.0-52.0); Hemoglobin 12.6 g/dL (13.0-18.0); Mean Corp Hgb Conc. 33.4 g/dL (33.0-37.0); Mean Corpuscular Hgb 31.3 pg (27.0-31.0); Mean Corpuscular Volume 93.8 fL (80.0-94.0); Mean Platelet Volume 10.4 fL (7.4-10.4); Platelet Count 222 10^3/uL (130-400); Red Blood Cell Count 4.02 10^6/uL (4.70-6.10); Red Cell Dist. Width 12.5 % (11.5-14.5); White Blood Cell Count 8.1 10^3/uL (4.8-10.8)
[2024-09-20 06:15] LABS: Blood Urea Nitrogen 27 mg/dl (9-20); Calcium 9.2 mg/dl (8.4-10.2); Carbon Dioxide 26 mmol/L (22-30); Chloride 110 mmol/L (98-107); Estimated Creatinine Clearance 85 ml/min; Glucose 226 mg/dl (70-99); HDL Cholesterol 55 mg/dl; LDL Cholesterol, Calculated 57 mg/dl; Potassium 4.4 mmol/L (3.5-5.1); Sodium 144 mmol/L (135-145); Total Cholesterol 127 mg/dl (50-199); Triglyceride 79 mg/dl (10-149); Very Low Density Lipoprotein 15 mg/dl (0-30); eGFR > 60.00
[2024-09-20 06:23] LABS: Depakane 53.8 ug/ml (50.0-120.0)
[2024-09-20 06:53] LABS: TSH Reflex To Free T4 0.56 uIU/ml (0.47-4.68)
[2024-09-20] MEDS: FLOMAX PO (08:10)
[2024-09-20] MEDS: PROSCAR 5 MG PO (08:29)
[2024-09-20] MEDS: COLACE 100 MG PO ×2 (08:29→21:28)
[2024-09-20] MEDS: COREG 12.5 MG PO (08:30)
[2024-09-20] MEDS: KLONOPIN 1 MG PO ×3 (08:30→21:29)
[2024-09-20] MEDS: PROTONIX 40 MG PO (08:30)
[2024-09-20] MEDS: ASPIR LOW (ENTERIC COATED) 81 MG PO (08:31)
--- NOTE | 2024-09-20 09:15 | PTOTSP ---
Speech Language Pathology
Pt seen for clinical bedside swallow evaluation. Pt reported his food was pureed before for choking. Spoke with staff at facility who stated that pt has been on regular solids/thin liquids since admission to facility in September 2021. P.O. trials of
regular solids and thin liquids provided. Prolonged mastication with pt initially mashing solid against palate with tongue. After initial swallow, diffuse mild oral residue noted, which cleared with a liquid wash. Suspect secondary to xerostomia,
which pt states is from Seroquel. No overt signs of aspiration. RN reported extremely fast rate of intake with breakfast tray.
Given impulsivity, xerostomia, and decreased dentition, recommend modified solids.
Recommend:
(1) IDDSI Level 6 (soft/bite-sized) and thin liquids
(2) Aspiration precautions: sit upright, slow rate, full supervision for slow rate
(3) Meds as tolerated
(4) [employer] to follow, likely briefly
--- NOTE | 2024-09-20 10:13 | W.PN.HOSP.TC ---
Today's Communication/Plan
-
See plan
Assessment / Plan
Assessment / Plan
Impression:
Patient is a 64y M with PMH significant for psychiatric illness, hypertension and prior CVA who presents to ED for evaluation of behavioral disturbance / speech abnormality.
Presentation with agitation and reported behavioral disturbances
Schizoaffective disorder/bipolar disorder
Dysarthria, reported chronic
Prior history of TIA/CVA
Dehydration with mild hypernatremia
Transient hypoxemia reported.
COPD without exacerbation
Chronic kidney disease stage III
Chronic diastolic CHF
Plan:
Agitation/behavioral disturbances at nursing facility.
Schizoaffective disorder/bipolar disorder
Reported recent admission to psychiatric facility with initiation of Seroquel. Discontinued at nursing facility prior to admission due to oversedation
Current psychiatric regimen including Depakote 100 mg p.o. at bedtime, clozapine 250 mg at bedtime, clonazepam 1 mg p.o. every 8 hours as needed
Agitation on arrival treated with Haldol and lorazepam on admission with current mental status at the baseline.
Neurologic exam with no focal findings other than thick garbled speech which patient reports he is baseline.
CT scan of the head with no acute abnormalities.
Depakote level 72.3�53.8 on repeated
Unclear reasoning for altered mental status at the facility, although on current evaluation there is no evidence of acute neurologic abnormality including CVA, NMS, serotonin syndrome. Continue close monitoring
Continue current psychiatric regimen.
Psychiatry consult pending.
Persistent dysarthria. Patient reports he has baseline
Prior history of TIA/CVA.
No focal findings on exam
CT scan with no acute abnormalities
CTA pending.
? If partially due to anticholinergic effect of psychiatric medications including Seroquel
3 dehydration
Oral care.
Dehydration with hyponatremia baseline sodium level of 149 upon presentation.
Continue IV fluids and follow BMP
Diet has been advanced
Chronic CHF preserved EF
Echo 06/05 LVEF 55-60% with no significant valvular abnormalities
Hypervolemic upon presentation
CHF BNP within normal normal limits.
Monitor volume status closely while on IV hydration
Hold Lasix
Nonsustained ventricular tachycardia.
Asymptomatic currently, although reports with occasional chest pressure.
ECG on admission noted with ST depressions in V3�V6.
Repeat ECG.
Serial troponin.
Update echocardiogram.
Cardiology evaluation.
Continue aspirin, statin, Coreg
Transient Hypoxemia
COPD without Acute Exacerbation
- Noted in the ED after sedation.
- CXR unremarkable. No significant wheezing noted on exam.
- Continue inhaled medications. No systemic steroids.
- O2 supplementation as needed. Follow for improvement.
CKD 3 by history
Renal function appears to be at baseline
Continue monitoring with hydration and holding Lasix.
BPH
Monitor for retention
Continue finasteride and Flomax
DVT prophylaxis: Lovenox
CODE STATUS full
Anticipated Discharge: 24 - 48 hours
Subjective/Interval History
-
Date of Service: September 20, 2024
Objective Data
-
Labs:
Laboratory Results
09/20/24 09/20/24
00:52 05:35
WBC 10.9 H 8.1
Hgb 13.6 12.6 L
Hct 41.1 37.7 L
Plt Count 259 222
Sodium 149 H 144
Potassium 4.4 4.4
Chloride 110 H 110 H
Carbon Dioxide 31 H 26
BUN 31 H 27 H
Creatinine 1.3 1.1
Glucose 128 H 226 H
Calcium 9.8 9.2
Total Bilirubin 0.9
AST 38
ALT 23
Alkaline Phosphatase 97
Vital Signs:
Vital Signs
Temp Pulse Resp BP Pulse Ox
98.5 F 87 20 130/87 97
09/20/24 08:02 09/20/24 08:02 09/20/24 08:02 09/20/24 08:02 09/20/24 09:48
Physical Exam
-
General: Well Developed and No Apparent Distress
HEENT: Normocephalic, Atraumatic and Moist Mucous Membranes
Respiratory: Clear to Auscultation
Cardiac: Regular Rhythm and S1/S2; Negative Murmur, Rub or Gallop
GI: Soft, Nontender, Nondistended and Normal Bowel Sounds; Negative Organomegaly
Rectal: Deferred by Provider
Musculoskeletal: No Clubbing, No Cyanosis and No Edema
Skin: Negative Rash
Neuro: Nonfocal/Grossly Intact and Slurred Speech; Negative No Motor Deficits or Tremors
[2024-09-20 10:32] LABS: Glycohemoglobin (HgbA1c) 5.8 % (4.0-5.6)
[2024-09-20 11:26] LABS: Troponin I 0.018 ng/ml
--- NOTE | 2024-09-20 12:01 | W.PN.UPDATE ---
Update Note
Progress Note Update
Psychiatric Evaluation dictated.
Patient is currently calmer but records and RN indicate he was agitated upon admission and needed Ketamine and Haldol to calm down. Currently is calm and reasonably cooperative and watching TV.
He was diagnosed with Schizoaffective disorder in the 80's and was hospitalized in several psychiatric hospitals but not since the 's.
Admits to mild dysphoria and auditory hallucinations but feels his medications help and he is not responding to internal stimuli. Denies hopelessness or suicidal thoughts.
For now I would continue current meds, will add prn Klonopin for potential agitation as he is already on it.
Will continue F/U.
--- NOTE | 2024-09-20 14:23 | PTCARENOTE ---
No delay ED nurse report tubed to [facility]
--- NOTE | 2024-09-20 14:59 | PTCARENOTE ---
Called to [facility] and relayed to them that patient pulled out PIV and will need a new one. He is being transferred to new room now on telemetry and 2L of oxygen. He is in bilateral wrist restraints- see order and flowsheets. Restraint order was
obtained as patient pulled out IV, took of tele monitoring, got out of bed and almost fell with bed alarm on and audible. Hospitalist Renetta made aware of patients wheezing, agitation, and 10 beat run of v tach earlier in shift. Both psych and
cards have consulted with patient this shift. Plan is for MRI and 2D echo tomorrow. PRN Klonopin given for agitation per order. See MAR/flowsheets for further care details.
--- NOTE | 2024-09-20 16:59 | CON.CAR ---
Addendum entered and electronically signed by Valerio Pagan MD 09/20/24 17:55:
I saw and examined the patient.
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
Comment: could not provide history, except to say 'they told me my heart stopped'. he is disorganized and at times uncooperative, but easily calmed. ECG sinus, noraml qtc, lucero with nsvt x1. Will monitor on tele, update echo and increase his bb.
Original Note:
Consultation
Consultation Request
Date/Time Consultation Requested: 09/20/2024 10:30
Date/Time Consultation Performed: 09/20/2024 14:00
Requesting Provider: Dr. Jackson
Performing Provider: SCOUT Sellers for Dr. Pagan
Reason for Consultation: NSVT
Medical History
-
Chief Complaint: Change in mental status
History of Present Illness:
Petey Stephens is a 64-year-old male (known to Dr. Santana, his primary machine inker), with HFpEF, COPD, hypertension, dyslipidemia, CKD, prediabetes, and schizoaffective disorder who presented to the emergency department with a chief complaint of
change in mental status. Initially, EMS was called for agitation and behavioral disturbance. He was mumbling but fairly cooperative when EMS arrived. He was admitted to the hospitalist service. He had some transient hypoxemia. He was not
believed to be in acute COPD exacerbation. On telemetry he had NSVT for which cardiology has been consulted. At the time of this consultation he denied chest pain and dizziness.
Past Medical History
Past Medical History: CHF, COPD, GERD, HTN, Hypercholesterolemia, Renal Failure (CKD) and Psychiatric (Schizoaffective disorder)
Past Surgical History: Orthopedic
Social History
Tobacco: Former Smoker
Alcohol: None
Living: Custodial ([facility])
Family History
Family History: Unable to Obtain
Allergies / Home Medications
Allergy/AdvReac Type Severity Reaction Status Date / Time
aripiprazole Allergy Unknown Verified 09/20/24 00:41
thiothixene Allergy Unknown Verified 09/20/24 00:41
�Medication �Instructions �Recorded �Confirmed �Type
acetaminophen 325 mg tablet 650 mg PO Q4HPRN PRN mild pain 04/22/24 09/20/24 History
(Tylenol)
albuterol sulfate 90 mcg/actuation 2 puff inhalation R Q6HPRN PRN SOB 04/22/24 09/20/24 History
aerosol inhaler
aspirin 81 mg tablet,delayed 81 mg PO DAILY 04/22/24 09/20/24 History
release
bisacodyl 10 mg rectal suppository 10 mg TX DAILYPRN PRN IF NO BM 04/22/24 09/20/24 History
(Dulcolax (bisacodyl)) AFTR MOM
clonazepam 1 mg tablet 1 mg PO Q8HPRN PRN anixety 04/22/24 09/20/24 History
docusate sodium 100 mg capsule 100 mg PO BID 04/22/24 09/20/24 History
(Colace)
magnesium hydroxide 400 mg/5 mL 2,400 mg PO [id number] PRN 04/22/24 09/20/24 History
oral suspension (Milk of Magnesia) CONSTIPATION
melatonin 5 mg tablet 10 mg PO HS 04/22/24 09/20/24 History
pantoprazole 40 mg tablet,delayed 40 mg PO DAILY 04/22/24 09/20/24 History
release (Protonix)
atorvastatin 40 mg tablet (Lipitor) 40 mg PO HS 09/20/24 09/20/24 History
carvedilol 12.5 mg tablet (Coreg) 12.5 mg PO BID 09/20/24 09/20/24 History
clozapine 50 mg tablet 250 mg PO HS 09/20/24 09/20/24 History
divalproex 125 mg capsule,delayed 1,000 mg PO HS 09/20/24 09/20/24 History
release sprinkle (Depakote
Sprinkles)
finasteride 5 mg tablet 5 mg PO DAILY 09/20/24 09/20/24 History
furosemide 40 mg tablet (Lasix) 40 mg PO DAILY 09/20/24 09/20/24 History
ipratropium 0.5 mg-albuterol 3 mg 3 ml inhalation R QID 09/20/24 09/20/24 History
(2.5 mg base)/3 mL nebulization
soln
sodium phosphates 19 gram-7 118 ml TX DAILYPRN PRN if no bm 09/20/24 09/20/24 History
gram/118 mL enema (Fleet Enema) aftr dulolcax
tamsulosin 0.4 mg capsule (Flomax) 0.8 mg PO QPM 09/20/24 09/20/24 History
Review of Systems
-
History Source: Patient
All other systems: Negative unless noted
Constitutional: Fatigue
Cardiac: No Symptoms
Abdomen/GI: No Symptoms
: No Symptoms
Physical Exam
Vital Signs
Temp Pulse Resp BP Pulse Ox
97.6 F 87 22 150/91 97
09/20/24 15:30 09/20/24 15:30 09/20/24 15:30 09/20/24 15:30 09/20/24 15:30
Lab Results
09/20/24 05:35
09/20/24 05:35
Troponin I 0.018 ng/ml 09/20/24 10:37
Jmg-V-Nytzduywkfz Pept 226 pg/ml 09/20/24 00:52
Physical Exam
General: Well Developed and Well Nourished
HEENT: Normocephalic and Anicteric
Respiratory: Clear and Non Labored Respirations
Cardiac: S1/S2 and Regular Rhythm
Breast: Deferred by me
GI: Soft, Non Tender, Non Distended and Normal Bowel Sounds
Rectal: Deferred by Provider
Genito-urinary: No Costovertebral Tender
Musculoskeletal: No Clubbing and No Cyanosis
Skin: Warm and Dry
Neuro: AO x 3
Hematologic/Lymphatic: No Lymphadenopathy
Psych: Other (Restless)
Impression / Plan
-
I/P: 64M with HFpEF, COPD, hypertension, dyslipidemia, CKD, prediabetes, and schizoaffective disorder who presented to the emergency department with a chief complaint of change in mental status. Initially, EMS was called for agitation and
behavioral disturbance. Cardio consult for NSVT
Outpatient machine inker: Dr. Santana
NSVT
- 16 beats at 10:19, asymptomatic
- Follow telemetry
- Echocardiogram
- Troponin 0.018
- Increase carvedilol to 25 mg twice daily
HFpEF, chronic
- Stable without shortness of breath
- Continue furosemide 40 mg daily
- Continue daily weight, I/O, and sodium restricted diet
Hypertension, chronic
- BP above goal but he is restless in his restraints
CKD, stable
Atherosclerosis, plaque in carotid arterial system on CTA
Dyslipidemia, LDL 57 on atorvastatin
Prediabetes
Schizoaffective disorder, per psychiatry
Data Reviewed
-
EKG: Report Reviewed by me (Sinus rhythm nonspecific ST abnormality, rate 80)
CT Scan: Report Reviewed by me (As above)
Medical Tests (Nuc Med, Echo etc): Report Reviewed by me (Prior)
Labs: Labs Reviewed by me
Old Records: Reviewed
--- NOTE | 2024-09-20 18:00 | PTCARENOTE ---
Addendum entered by Justina Roberts RN 09/21/24 08:35:
Pt has +3 b/l lower extremity edema and wheezing. Considering hx of CHF, notified. Rate of IV fluids decreased to 65 ml/hr.
Original Note:
Pt received from ED and pulled over to bed from stretcher in room 326. Pt disoriented to place. VSS. 95% on 2L. Restraints intact upon arrival. Pt currently calm and restraints removed. Pt eating dinner and resting comfortably in bed. Bed alarm in
place, will continue to monitor.
[2024-09-20] MEDS: LIPITOR 40 MG PO (18:05)
[2024-09-20] MEDS: LOVENOX 40 MG SC (18:05)
[2024-09-20 18:50] LABS: Troponin I < 0.012 ng/ml
[2024-09-20] MEDS: FLOVENT 110 MCG INHALER 2 PUFF INH (19:24)
[2024-09-20] MEDS: VENTOLIN NEBULES 2.5 MG INH (20:32)
[2024-09-20] MEDS: COREG 25 MG PO (21:28)
[2024-09-20] MEDS: CLOZARIL 250 MG PO (21:29)
[2024-09-20] MEDS: FLOMAX 0.8 MG PO (21:29)
--- NOTE | 2024-09-20 23:30 | PTCARENOTE ---
Addendum entered by Irma Gómez RN 09/21/24 05:13:
At approximately 0230 pt continues to be retaining urine. bladder scan 968. [employer] notified; ordered null to be placed. 1000 mL of urine drained. plan of care ongoing.
Original Note:
PCT notified this RN that RR was 48. Pt with increased work of breathing, restless, and lethargic. Lungs sound coarse throughout with inspiratory and expiratory wheezes. [employer] notified and up to assess. New orders added. labs drawn. bladder scan 589;
pt straight cathed. [employer] also ordered stat dose of IV Lasix; see MAR for administration.
--- NOTE | 2024-09-20 23:45 | W.PN.UPDATE ---
Update Note
Progress Note Update
RN addressed patient oxygen status 91% on 3L down from 98% at present, RR 48, 134/82, 97.8, BS 123.Patient seen and evaluated. Patient noted to be in respiratory distress, lethargic, restless in bed with occasional jerking movements of limps
(tardive dyskinesia?) . HR RRR, lungs wheezes throughout, congested, RR 40, +JVD, +2 edema b/l LE and UE. Bladder scan > 500cc, Straight cath, RT to give nebs, stat chest xray, will order IV Lasix, labs, ABG, hold IVF. labs results noted, ABG
results noted. chest xray pending.
RN reported, patients looks calmer and comfortable at present.
In AM, patient is awake, slightly agitated, trying to pull tubes out, will place mitts.
Jessica catheter maintained.
3 lb weight gain noted in AM
may need to adjust psych medications
AM Vitals 97.3, 77, 26, 98% 3l
[2024-09-20 23:52] LABS: B.E. 5.4 mmol/L; HCO3 31.1 mmol/L (21-28); PCO2 49 mmHg (35-48); PO2 103 mmHg (83-108); pH 7.41 (7.35-7.45)
[2024-09-20] MEDS: LASIX 40 MG IV (23:58)
[2024-09-20 23:59] LABS: O2 Therapy 3L NC
[2024-09-21 00:25] VITALS: BP 139/84
[2024-09-21 00:43] LABS: Glucose - Point of Care 123 mg/dl (70-99)
[2024-09-21 01:10] LABS: Hematocrit 38.6 % (39.0-52.0); Hemoglobin 12.8 g/dL (13.0-18.0); Mean Corp Hgb Conc. 33.2 g/dL (33.0-37.0); Mean Corpuscular Hgb 30.7 pg (27.0-31.0); Mean Corpuscular Volume 92.6 fL (80.0-94.0); Mean Platelet Volume 10.2 fL (7.4-10.4); Platelet Count 233 10^3/uL (130-400); Red Blood Cell Count 4.17 10^6/uL (4.70-6.10); Red Cell Dist. Width 12.5 % (11.5-14.5); White Blood Cell Count 9.1 10^3/uL (4.8-10.8)
[2024-09-21 01:38] LABS: Ammonia 14 umol/L (9-30)
[2024-09-21 01:39] LABS: Lactic Acid 0.8 mmol/L (0.7-2.0)
[2024-09-21 01:41] LABS: Blood Urea Nitrogen 26 mg/dl (9-20); Calcium 9.3 mg/dl (8.4-10.2); Carbon Dioxide 31 mmol/L (22-30); Chloride 104 mmol/L (98-107); Estimated Creatinine Clearance 96 ml/min; Glucose 138 mg/dl (70-99); Potassium 4.1 mmol/L (3.5-5.1); Sodium 141 mmol/L (135-145); eGFR > 60.00
[2024-09-21 03:27] LABS: Troponin I 0.025 ng/ml
[2024-09-21 04:59] VITALS: BMI 34.8
[2024-09-21] MEDS: 0.45%NACL IV (06:40)
[2024-09-21 07:15] VITALS: BP 128/85
[2024-09-21] MEDS: FLOVENT 110 MCG INHALER 2 PUFF INH ×2 (07:31→20:31)
[2024-09-21] MEDS: VENTOLIN NEBULES 2.5 MG INH ×2 (07:32→20:31)
[2024-09-21] MEDS: PROSCAR 5 MG PO (08:35)
[2024-09-21] MEDS: ASPIR LOW (ENTERIC COATED) 81 MG PO (08:35)
[2024-09-21] MEDS: KLONOPIN 1 MG PO (08:36)
[2024-09-21] MEDS: COREG 25 MG PO ×2 (08:36→19:49)
[2024-09-21] MEDS: PROTONIX 40 MG PO (08:36)
[2024-09-21] MEDS: COLACE 100 MG PO ×2 (08:37→19:48)
--- NOTE | 2024-09-21 09:38 | CARDSERVLU ---
Echocardiogram with [facility] completed after protocol screening completed. Allergies verified.
Patent IV site: _Left arm 22 G PC ____
IV site flushed with 0.9% NaCl pre and post administration.
Diluted bolus method utilized to enhance visualization of ventricular yanes.
Total volume given: __3__ mL
Patient tolerated all procedures well without complications.
[2024-09-21 11:01] VITALS: BP 116/77
--- NOTE | 2024-09-21 12:00 | PTCARENOTE ---
Pt no longer attempting to remove tubing. b/l mitts removed, no further need at this time.
--- NOTE | 2024-09-21 12:47 | W.PN.CD ---
Today's Communication / Plan
-
stay on current Coreg dose
Consider elective reevaluation of RV and workup of RV dysfunction as outpatient
Cardiology will sign off
Pt should see Dr. Santana in our office in 4-8 weeks
Impression / Plan
-
Background: 64M with HFpEF, COPD, hypertension, dyslipidemia, CKD, prediabetes, and schizoaffective disorder who presented to the emergency department with a chief complaint of change in mental status. Initially, EMS was called for agitation and
behavioral disturbance. Cardio consult for NSVT
Outpatient partner marketing manager: Dr. Santana
NSVT
- 16 beats at 10:19 on 09/20/2024, asymptomatic => no additional VT (so far)
- Echocardiogram => Today LVEF 50-55%, limited views of RV: dilated/hypo
- Troponin 0.018 => <0.012, => 0.025
- Stay on the increased carvedilol => 25 mg twice daily (increased on 09/20/2024)
- I was unable to elicit history from him, I see no comment of syncope
Abnormal RV on echo
- Unclear etiology, PA pressure could not be estimated
- No obvious clinical right heart failure
- Consider more workup when psych status improved
Stable HFpEF, chronic
Hypertension, chronic, ok now
CKD, stable
Atherosclerosis, plaque in carotid arterial system on CTA
Dyslipidemia, LDL 57 on atorvastatin
Prediabetes
Schizoaffective disorder, per psychiatry
COPD
Subjective: Cannot obtain useful hx
Physical Exam
Vital Signs/Labs
Vital Signs
Temp Pulse Resp BP Pulse Ox
98.5 F 73 28 116/77 100
09/21/24 11:01 09/21/24 11:01 09/21/24 11:01 09/21/24 11:01 09/21/24 11:01
0409/21/24 09/22/24
06:59 06:59 06:59
Actual Weight 110 kg 113.171 kg
09/21/24 01:00
09/21/24 01:00
Magnesium 2.0 mg/dl (1.6-2.3) 09/21/24 01:00
Triglycerides 79 mg/dl (10-149) 09/20/24 05:35
LDL Cholesterol, Calc 57 mg/dl 09/20/24 05:35
VLDL Cholesterol, Calc 15 mg/dl (0-30) 09/20/24 05:35
HDL Cholesterol 55 mg/dl 09/20/24 05:35
TSH 0.88 uIU/ml (0.47-4.68) 09/20/24 00:52
09/20/24
00:52
Xzn-R-Jvpokrfaktp Pept 226
LAB Results
09/20/24 09/20/24 09/21/24
10:37 18:19 02:57
Troponin I 0.018 < 0.012 D 0.025
Physical Exam
Constitutional: No acute distress
Cardiovascular: Rhythm & rate is regular and Pedal edema is absent
Respiratory: Respiratory effort normal and Crackles Absent
GI: Soft
Neuro/Psych: Alert
Data Reviewed
-
Date of Service: September 21, 2024
--- NOTE | 2024-09-21 14:41 | W.PN.UPDATE ---
Addendum entered and electronically signed by Valerio Lim MD 09/21/24 15:40:
ordered cbc w diff as we need an anc with clozaril. total time visit/review of chart/ speaking to [facility] pharmacy hospitalist 30 minutes
Original Note:
Update Note
Progress Note Update
patient seen chart reviewed. discussed w nursing. patient was very sedated this am. almost unresponsive. nursing was considering calling a rapid. he was tachypneic and appeared in distress. he had a chest ct looking for PE but no PE was found.
small pleural effusion which may represent atelectasis. the patient did tell me he does not want to take depakote as it makes his legs burn. he recognizes that he is sedated 'my speech is slurred'. he has had a cat scan brain here which shows no
acute findings. he believes he should only be taking 125 mg clozaril not 250. i told him i would call [facility] to get more information on meds he is taking.
spoke to [facility] nurse to get some hx. patient was recently hospitalized at [facility]. he had been on depakote which was being tapered as patient felt ill effects. he had been on 1750 daily and patient began to refuse it and [facility]
continued the taper and started clozaril inc gradually to 250 mg daily. he returned to the [facility] on 09/16 and he got the clozaril dose 250 mg for three days. i noted that patient was taking klonopin one mg prn in the [facility] but we have him on one mg bid and
prn. i called the [facility] back to check on the klonopin dose.it was one mg prn q 8h. on thursday day shift he received zero klonopin . he does NOT normally have slurred speech. he takes some time to respond to questions but the nurse who
knows him said his speech is never slurred.
spoke to dr hong to apprise and nursing.
it is possible that current psych meds are sedating patient . for now will decrease clozaril to 200 mg q hs and klonopin to o.5 mg doses prn only for agitation will follow depakote dc'ed as per patient request. he had not received it at [facility]
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
--- NOTE | 2024-09-21 15:02 | W.PN.HOSP.TC ---
Today's Communication/Plan
-
Adjust psychiatric regimen with discontinuation of Depakote, standing dose of benzodiazepines, and reduce clozapine.
Monitor mental status.
Monitor oral intake.
Stop IV fluids.
Assessment / Plan
Assessment / Plan
Impression:
Patient is a 64y M with PMH significant for psychiatric illness, hypertension and prior CVA who presents to ED for evaluation of behavioral disturbance / speech abnormality.
Presentation with agitation and reported behavioral disturbances
Schizoaffective disorder/bipolar disorder
Dysarthria, reported chronic
Prior history of TIA/CVA
Dehydration with mild hypernatremia
Transient hypoxemia reported.
COPD without exacerbation
Chronic kidney disease stage III
Chronic diastolic CHF
Plan:
Agitation/behavioral disturbances at nursing facility.
Encephalopathy suspect secondary to medications
Schizoaffective disorder/bipolar disorder
Reported recent admission to psychiatric facility with initiation of Seroquel. Discontinued at nursing facility prior to admission due to oversedation
Preadmission psychiatric regimen including Depakote 100 mg p.o. at bedtime, clozapine 250 mg at bedtime, clonazepam 1 mg p.o. every 8 hours as needed
Agitation on arrival treated with Haldol and lorazepam on admission with current mental status at the baseline.
Neurologic exam with no focal findings other than thick garbled speech which patient reports he is baseline.
CT scan of the head with no acute abnormalities.
Depakote level 72.3�53.8 on repeated
Unclear reasoning for altered mental status at the facility, although on current evaluation there is no evidence of acute neurologic abnormality including CVA, NMS, serotonin syndrome. Continue close monitoring
Discussed with psychiatry. Given concern for oversedation, plan is to discontinue Depakote, standing dose of clonazepam (leaving only as needed) and reduced dose of clozapine to 200 mg.
Persistent dysarthria. Patient reports he has baseline
Prior history of TIA/CVA.
No focal findings on exam
CT scan with no acute abnormalities
CTA with no evidence of vascular abnormalities
MRI pending, although could not be urgent to complete if improved cognitive status with medication adjustment.
Dehydration with hyponatremia baseline sodium level of 149 upon presentation.
Improved with IV fluids. Hold further IV hydration and monitor oral intake and volume status.
Diet has been advanced
Chronic CHF preserved EF
Echo 06/05 LVEF 55-60% with no significant valvular abnormalities
Repeated echocardiogram with preserved LVEF and with concern for possible RV dysfunction
Follow-up CT PE protocol with negative of pulmonary embolism.
Hypovolemic status on presentation
CHF BNP within normal normal limits.
Monitor volume status closely while on IV hydration
Hold Lasix
Nonsustained ventricular tachycardia.
Asymptomatic currently, although reports with occasional chest pressure.
ECG on admission noted with ST depressions in V3�V6.
Repeat ECG.
Serial troponin.
Update echocardiogram.
Cardiology evaluation.
Continue aspirin, statin, Coreg
Transient Hypoxemia
COPD without Acute Exacerbation
- Noted in the ED after sedation.
- CXR unremarkable. No significant wheezing noted on exam.
-CT with clear lung young and negative for PE
-ABG with no evidence of CO2 retention, BMP with chronic compensatory alkalosis
- Continue inhaled medications. No systemic steroids.
- O2 supplementation as needed. Follow for improvement.
CKD 3 by history
Renal function appears to be at baseline
Continue monitoring with hydration and holding Lasix.
BPH
Monitor for retention
Continue finasteride and Flomax
DVT prophylaxis: Lovenox
CODE STATUS full
Anticipated Discharge: 24 - 48 hours
Subjective/Interval History
-
Date of Service: September 21, 2024
Objective Data
-
Vital Signs:
Vital Signs
Temp Pulse Resp BP Pulse Ox
98.5 F 73 28 116/77 100
09/21/24 11:01 09/21/24 11:01 09/21/24 11:01 09/21/24 11:01 09/21/24 11:01
I&O
09/20/24 09/21/24 09/22/24
06:59 06:59 06:59
Intake Total 2300 / 2300
Output Total 2500 / 2500
Balance -200 / -200
Physical Exam
-
General: Well Developed and No Apparent Distress
HEENT: Normocephalic, Atraumatic and Moist Mucous Membranes
Respiratory: Clear to Auscultation
Cardiac: Regular Rhythm and S1/S2; Negative Murmur, Rub or Gallop
GI: Soft, Nontender, Nondistended and Normal Bowel Sounds; Negative Organomegaly
Rectal: Deferred by Provider
Musculoskeletal: No Clubbing, No Cyanosis and No Edema
Skin: Negative Rash
Neuro: Nonfocal/Grossly Intact and Slurred Speech; Negative No Motor Deficits or Tremors
--- NOTE | 2024-09-21 15:04 | CM ---
Patient seen at bedside
CT chest today
psych consulted
IA Completed
Spoke with Jenn from [facility] - patient is LTC since 10/04
Referral added in [facility]
States recent hospitalization [facility]: [facility]
DME: [facility]
PCP: Dalton Martinez
Pharmacy: [facility]
PLAN: [facility]
[2024-09-21 15:06] VITALS: BP 134/85
--- NOTE | 2024-09-21 18:00 | PTCARENOTE ---
Pt tachypneic and wheezing throughout shift. RR 28, 96% on 3L. Pt originally responsive at start of shift, having confused conversation with staff. Pt became less responsive, only grunting as response to painful stimuli. Pt cyanotic around the lips
and mouth breathing. MD notified at change of status. Dr Jackson saw pt @bedside. Chest CT ordered and obtained. Psych saw pt @bedside, psych medications readjusted. Pt continues to mouth breath and remains tachypneic, going in and out of
responsiveness and orientation. MD's aware of current status. Will continue to monitor.
[2024-09-21] MEDS: LOVENOX 40 MG SC (18:18)
[2024-09-21] MEDS: LIPITOR 40 MG PO (18:19)
[2024-09-21 19:06] VITALS: BP 147/88
[2024-09-21] MEDS: FLOMAX 0.8 MG PO (22:55)
[2024-09-21] MEDS: CLOZARIL 200 MG PO (22:55)
[2024-09-21 23:15] VITALS: BP 116/79
[2024-09-22 03:20] VITALS: BP 137/82
[2024-09-22 05:38] VITALS: BMI 33.9
[2024-09-22 06:34] LABS: % Basophils 0.3 % (0-2); % Eosinophils 1.7 % (0-6); % Immature Granulocytes 0.9 % (0-0.5); % Lymphocytes 16.3 % (20.5-51.1); % Monocytes 14.4 % (1.7-9.3); % Neutrophils 66.4 % (42.2-75.2); Absolute Eosinophils 0.1 10^3/uL (0-0.7); Absolute Immature Granulocytes 0.1 10^3/uL (0-0.05); Absolute Lymphocytes 1.1 10^3/uL (1.2-3.4); Absolute Neutrophils 4.6 10^3/uL (1.4-6.5); Hemoglobin 12.1 g/dL (13.0-18.0); Mean Corp Hgb Conc. 32.7 g/dL (33.0-37.0); Mean Corpuscular Hgb 30.6 pg (27.0-31.0); Mean Corpuscular Volume 93.4 fL (80.0-94.0); Mean Platelet Volume 10.6 fL (7.4-10.4); Nucleated Red Blood Cells % 0 % (-); Platelet Count 242 10^3/uL (130-400); Red Blood Cell Count 3.96 10^6/uL (4.70-6.10); Red Cell Dist. Width 12.4 % (11.5-14.5)
[2024-09-22 06:57] LABS: Blood Urea Nitrogen 27 mg/dl (9-20); Calcium 9.1 mg/dl (8.4-10.2); Carbon Dioxide 32 mmol/L (22-30); Chloride 103 mmol/L (98-107); Estimated Creatinine Clearance 87 ml/min; Glucose 133 mg/dl (70-99); Potassium 3.9 mmol/L (3.5-5.1); Sodium 139 mmol/L (135-145); eGFR > 60.00
[2024-09-22 07:34] VITALS: BP 129/85
[2024-09-22] MEDS: FLOVENT 110 MCG INHALER 2 PUFF INH ×2 (07:54→19:44)
[2024-09-22] MEDS: PROSCAR 5 MG PO (09:09)
[2024-09-22] MEDS: COREG 25 MG PO ×2 (09:09→19:29)
[2024-09-22] MEDS: ASPIR LOW (ENTERIC COATED) 81 MG PO (09:10)
[2024-09-22] MEDS: PROTONIX 40 MG PO (09:10)
[2024-09-22] MEDS: COLACE 100 MG PO ×2 (09:10→19:29)
[2024-09-22] MEDS: LASIX 40 MG PO (09:10)
[2024-09-22 11:03] VITALS: BP 121/75
--- NOTE | 2024-09-22 14:39 | W.PN.UPDATE ---
Update Note
Progress Note Update
patient seen chart reviewed. patient is much more awake and alert today. he was eating his lunch with gusto when i saw him. he agreed that he is feeling more with it but seemed upset that nursing told him he had a bit of 'heart failure' he was
jumping to the conclusion that he would need a heart transplant. reassured him that this was not the case. nursing tells me he has been complaining of being very thirsty and this am drank a lot of water and actually threw it up. explained to
patient that he needs to not overdo it w fluids bc he could become hyponatremic. asked if he had very dry mouth (clozaril can cause very dry mouth). he said no. will keep an eye on this. in the meantime no change made in meds he has not required
any prns and is now off klonopin scheduled order. will follow
[2024-09-22 15:11] VITALS: BP 140/85
--- NOTE | 2024-09-22 16:00 | W.PN.HOSP.TC ---
Today's Communication/Plan
-
Mental status improved with psychiatric regimen adjustment
Resume oral Lasix
Monitor volume status
Follow BMP
Assessment / Plan
Assessment / Plan
Impression:
Patient is a 64y M with PMH significant for psychiatric illness, hypertension and prior CVA who presents to ED for evaluation of behavioral disturbance / speech abnormality.
Presentation with agitation and reported behavioral disturbances
Schizoaffective disorder/bipolar disorder
Dysarthria, reported chronic
Prior history of TIA/CVA
Dehydration with mild hypernatremia
Transient hypoxemia reported.
COPD without exacerbation
Chronic kidney disease stage III
Chronic diastolic CHF
Plan:
Agitation/behavioral disturbances at nursing facility.
Encephalopathy suspect secondary to medications
Schizoaffective disorder/bipolar disorder
Reported recent admission to psychiatric facility with initiation of Seroquel. Discontinued at nursing facility prior to admission due to oversedation
Preadmission psychiatric regimen including Depakote 100 mg p.o. at bedtime, clozapine 250 mg at bedtime, clonazepam 1 mg p.o. every 8 hours as needed
Agitation on arrival treated with Haldol and lorazepam on admission with current mental status at the baseline.
Neurologic exam with no focal findings other than thick garbled speech which patient reports he is baseline.
CT scan of the head with no acute abnormalities.
Depakote level 72.3�53.8 on repeated
Unclear reasoning for altered mental status at the facility, although on current evaluation there is no evidence of acute neurologic abnormality including CVA, NMS, serotonin syndrome. Continue close monitoring
Discussed with psychiatry. Given concern for oversedation, plan is to discontinue Depakote, standing dose of clonazepam (leaving only as needed) and reduced dose of clozapine to 200 mg.
Mental status improved and close to baseline with reduction of clozapine and discontinuation of standing dose of benzodiazepine and Depakote. Monitor further.
Persistent dysarthria. Patient reports he has baseline
Prior history of TIA/CVA.
No focal findings on exam
CT scan with no acute abnormalities
CTA with no evidence of vascular abnormalities
Improved with adjustment of psychiatric regimen
Dehydration with hyponatremia baseline sodium level of 149 upon presentation.
Improved with IV fluids. Hold further IV hydration and monitor oral intake and volume status.
Diet has been advanced
Chronic CHF preserved EF
Echo 06/05 LVEF 55-60% with no significant valvular abnormalities
Repeated echocardiogram with preserved LVEF and with concern for possible RV dysfunction
Follow-up CT PE protocol with negative of pulmonary embolism.
Hypovolemic status on presentation
CHF BNP within normal normal limits.
Monitor volume status closely while on IV hydration
Oral Lasix resumed on 09/22. Follow BMP and volume status
Nonsustained ventricular tachycardia.
Asymptomatic currently, although reports with occasional chest pressure.
ECG on admission noted with ST depressions in V3�V6.
Repeat ECG.
Serial troponin.
Update echocardiogram.
Cardiology evaluation.
Continue aspirin, statin, Coreg
Transient Hypoxemia
COPD without Acute Exacerbation
- Noted in the ED after sedation.
- CXR unremarkable. No significant wheezing noted on exam.
-CT with clear lung young and negative for PE
-ABG with no evidence of CO2 retention, BMP with chronic compensatory alkalosis
- Continue inhaled medications. No systemic steroids.
- O2 supplementation as needed. Follow for improvement.
CKD 3 by history
Renal function appears to be at baseline
Continue monitoring with hydration and holding Lasix.
BPH
Monitor for retention
Continue finasteride and Flomax
DVT prophylaxis: Lovenox
CODE STATUS full
Anticipated Discharge: 24 - 48 hours
Subjective/Interval History
-
Date of Service: September 22, 2024
Objective Data
-
Labs:
Laboratory Results
09/22/24
05:50
WBC 7.0
Hgb 12.1 L
Hct 37.0 L
Plt Count 242
Sodium 139
Potassium 3.9
Chloride 103
Carbon Dioxide 32 H
BUN 27 H
Creatinine 1.1
Glucose 133 H
Calcium 9.1
Vital Signs:
Vital Signs
Temp Pulse Resp BP Pulse Ox
98.0 F 81 19 140/85 94
09/22/24 15:11 09/22/24 15:11 09/22/24 15:11 09/22/24 15:11 09/22/24 15:11
I&O
09/21/24 09/22/24 09/23/24
06:59 06:59 06:59
Intake Total 2300 / 2300 1020 / 1020
Output Total 2500 / 2500 1150 / 1150
Balance -200 / -200 -130 / -130
Physical Exam
-
General: Well Developed and No Apparent Distress
HEENT: Normocephalic, Atraumatic and Moist Mucous Membranes
Respiratory: Clear to Auscultation
Cardiac: Regular Rhythm and S1/S2; Negative Murmur, Rub or Gallop
GI: Soft, Nontender, Nondistended and Normal Bowel Sounds; Negative Organomegaly
Rectal: Deferred by Provider
Musculoskeletal: No Clubbing, No Cyanosis and No Edema
Skin: Negative Rash
Neuro: Nonfocal/Grossly Intact and Slurred Speech; Negative No Motor Deficits or Tremors
--- NOTE | 2024-09-22 16:28 | CM ---
Patient seen at bedside. Patient states that he is moving [address] in [place] and patient will have several girls to take care of him. Fabien is coming and she will do all personal care and other 'girls' will take him shopping
and get clothing. CM updated Jenn liaison at [facility] and patient addiction social worker confirmed. Patient is LTC and has recent inpatient psych admission. CM will continue to follow discharge planning needs.
Plan; [facility] point Return
--- NOTE | 2024-09-22 16:28 | PTOTSP ---
Speech Language Pathology
Pt seen for dysphagia tx. Reclined in bed upon arrival, reciting prayers. Pt reported no difficulty with P.O. intake. Seen with thin liquids via straw with no overt difficulty. Also seen with chopped pears. Adequate rate of intake noted.
However, significant coughing episode noted x1 with increased WOB. Sp02 taken shortly after and was 92%. Given impulsivity, findings of CT chest, and decreased mastication, recommend further diet modification.
Recommend:
(1) IDDSI Level 5 (minced/moist) and thin liquids
(2) Aspiration precautions: sit upright, slow rate, small bites, chew food thoroughly
(3) Meds as tolerated
(4) H[employer] D[employer]ING ROOM C[employer]IER to continue to follow
[2024-09-22] MEDS: LIPITOR 40 MG PO (18:05)
[2024-09-22] MEDS: LOVENOX 40 MG SC (18:05)
[2024-09-22 19:15] VITALS: BP 151/89
[2024-09-22] MEDS: VENTOLIN NEBULES 2.5 MG INH (19:46)
[2024-09-22] MEDS: MAALOX 30 ML PO (20:37)
--- NOTE | 2024-09-22 20:44 | PTCARENOTE ---
patient c/o indigestion/ No BM documented for past two days. + BS. abdomen slightly distended. House DIGITAL PROGRAM MANAGER made aware. see MAR for orders.
[2024-09-22] MEDS: FLOMAX 0.8 MG PO (21:09)
[2024-09-22] MEDS: CLOZARIL 200 MG PO (21:09)
[2024-09-22 23:13] VITALS: BP 134/77
[2024-09-23 03:47] VITALS: BP 135/81
[2024-09-23 06:00] VITALS: BMI 34.1
[2024-09-23 06:21] LABS: % Basophils 0.4 % (0-2); % Eosinophils 1.3 % (0-6); % Immature Granulocytes 0.7 % (0-0.5); % Lymphocytes 14.3 % (20.5-51.1); % Monocytes 15.4 % (1.7-9.3); % Neutrophils 67.9 % (42.2-75.2); Absolute Eosinophils 0.1 10^3/uL (0-0.7); Absolute Immature Granulocytes 0.1 10^3/uL (0-0.05); Absolute Monocytes 1.1 10^3/uL (0.1-0.6); Absolute Neutrophils 4.7 10^3/uL (1.4-6.5); Hematocrit 36.6 % (39.0-52.0); Hemoglobin 12.2 g/dL (13.0-18.0); Mean Corp Hgb Conc. 33.3 g/dL (33.0-37.0); Mean Corpuscular Volume 93.1 fL (80.0-94.0); Mean Platelet Volume 10.6 fL (7.4-10.4); Nucleated Red Blood Cells % 0 % (-); Platelet Count 234 10^3/uL (130-400); Red Blood Cell Count 3.93 10^6/uL (4.70-6.10); Red Cell Dist. Width 12.1 % (11.5-14.5); White Blood Cell Count 6.9 10^3/uL (4.8-10.8)
[2024-09-23 06:39] LABS: Blood Urea Nitrogen 31 mg/dl (9-20); Carbon Dioxide 33 mmol/L (22-30); Chloride 99 mmol/L (98-107); Estimated Creatinine Clearance 87 ml/min; Glucose 131 mg/dl (70-99); Potassium 4.1 mmol/L (3.5-5.1); Sodium 138 mmol/L (135-145); eGFR > 60.00
[2024-09-23 07:46] VITALS: BP 150/86
[2024-09-23] MEDS: FLOVENT 110 MCG INHALER INH ×2 (08:05→19:53)
[2024-09-23] MEDS: PROSCAR 5 MG PO (08:34)
[2024-09-23] MEDS: ASPIR LOW (ENTERIC COATED) 81 MG PO (08:34)
[2024-09-23] MEDS: COLACE 100 MG PO (08:35)
[2024-09-23] MEDS: COREG 25 MG PO (08:35)
[2024-09-23] MEDS: LASIX 40 MG PO (08:35)
[2024-09-23] MEDS: PROTONIX 40 MG PO (08:35)
[2024-09-23 11:19] VITALS: BP 112/65
--- NOTE | 2024-09-23 12:37 | W.PN.UPDATE ---
Update Note
Progress Note Update
patient seen chart reviewed. spoke with nursing and with dr hooker /suzi. the patient continues to be more awake and alert. he is oriented x 3. he was noted to be constipated. nsg reports abdomen is somewhat distended. clozaril is very
constipating. explained to him that i have ordered miralax and colace on a anthony basis as this can get severe. he is not hearing voices. he does seem to have a delusion that he needs a heart transplant. he did respond to my reassurance that he was
not here for a heart transplant and that heart issues often today can be handled with skillful manipulation of medications.anc is normal. psych will follow
[2024-09-23] MEDS: MIRALAX 17 GRAMS PO (13:45)
--- NOTE | 2024-09-23 13:58 | W.DS.TRANS ---
DC Summary - Community Chest Officer
-
Discharge Instructions:
Sleep Apnea Risk Intermediate
Discharge Diagnosis/Procedures Encephalopathy
Diet Regular,Other diet
Additional Diets Minst, moist, thin liquids
Instructions:
Stand-Alone Forms:
Changes to Home Medications: Yes
Discharge Medications:
DC Medications w/original date entered in [employer]
acetaminophen 325 mg tablet (Tylenol) 650 mg PO Q4HPRN PRN mild pain 04/22/24
albuterol sulfate 90 mcg/actuation aerosol inhaler 2 puff inhalation R Q6HPRN PRN SOB 04/22/24
aspirin 81 mg tablet,delayed release 81 mg PO DAILY Blood Clot Prevention/Tx 04/22/24
bisacodyl 10 mg rectal suppository (Dulcolax (bisacodyl)) 10 mg WA DAILYPRN PRN IF NO BM AFTR MOM 04/22/24
docusate sodium 100 mg capsule (Colace) 100 mg PO BID Constipation 04/22/24
magnesium hydroxide 400 mg/5 mL oral suspension (Milk of Magnesia) 2,400 mg PO [id number] PRN constipation 04/22/24
melatonin 5 mg tablet 10 mg PO HS Sleep 04/22/24
pantoprazole 40 mg tablet,delayed release (Protonix) 40 mg PO DAILY Gastrointestinal Issue 04/22/24
atorvastatin 40 mg tablet (Lipitor) 40 mg PO HS cholesterol 09/20/24
finasteride 5 mg tablet 5 mg PO DAILY Urinary Issue 09/20/24
furosemide 40 mg tablet (Lasix) 40 mg PO DAILY Fluid Retention/Swelling 09/20/24
ipratropium 0.5 mg-albuterol 3 mg (2.5 mg base)/3 mL nebulization soln 3 ml inhalation R QID Lung/Breathing Issues 09/20/24
sodium phosphates 19 gram-7 gram/118 mL enema (Fleet Enema) 118 ml WA DAILYPRN PRN if no bm aftr dulolcax 09/20/24
tamsulosin 0.4 mg capsule (Flomax) 0.8 mg PO QPM Urinary Issue 09/20/24
carvedilol 25 mg tablet 25 mg PO BID #60 tabs 09/23/24
clonazepam 0.5 mg tablet 0.5 mg PO Q6HPRN PRN agitation #20 tabs 09/23/24
clozapine 100 mg tablet 200 mg (2 x 100 mg) PO HS #60 tabs 09/23/24
polyethylene glycol 3350 17 gram oral powder packet 17 g PO DAILY #30 ea 09/23/24
Home Medication Changes
Coreg increased.
Depakote stopped
Standing dose of clonazepam stopped
Clozapine reduced
Pending Results: No
[2024-09-23 15:24] VITALS: BP 131/75
--- NOTE | 2024-09-23 15:30 | CM ---
Patient seen at [facility]
IMM explained & signed. In chart
[facility] updated - Spoke with Jenn liaison at [facility] & updated of discharge
PLAN: [facility]
Report #: [phone]
Fax #: [phone]
transportation forms on chart
[2024-09-23] MEDS: LOVENOX 40 MG SC (17:37)
[2024-09-23] MEDS: LIPITOR 40 MG PO (17:37)
== END 2024-09-23 19:20 | DRG 92 ==
LOC: 3 WEST ACU 05:26
PROVIDERS: Nurse Practitioner Gerontology; Psychiatry & Neurology Psychiatry; ADMITTING PHYSICIAN Hospitalist; ATTENDING PHYSICIAN Internal Medicine; CONSULT PHYSICIAN Internal Medicine Cardiovascular Disease; EMERGENCY PHYSICIAN Emergency Medicine; FAMILY PHYSICIAN Internal Medicine; OTHER PHYSICIAN Psychiatry & Neurology Psychiatry
DX: G92.8 Other toxic encephalopathy (principal); E87.0 Hyperosmolality and hypernatremia; E87.1 Hypo-osmolality and hyponatremia; I13.0 Hypertensive heart and chronic kidney disease with heart failure and stage 1 through stage 4 chronic kidney disease, or unspecified chronic kidney disease; I50.32 Chronic diastolic (congestive) heart failure; I47.20 Ventricular tachycardia, unspecified; R47.01 Aphasia; F25.9 Schizoaffective disorder, unspecified; T42.6X5A Adverse effect of other antiepileptic and sedative-hypnotic drugs, initial encounter; E66.9 Obesity, unspecified; E78.00 Pure hypercholesterolemia, unspecified; E86.0 Dehydration; F31.9 Bipolar disorder, unspecified; I25.10 Atherosclerotic heart disease of native coronary artery without angina pectoris; R45.1 Restlessness and agitation; J44.9 Chronic obstructive pulmonary disease, unspecified; R33.8 Other retention of urine; N40.1 Benign prostatic hyperplasia with lower urinary tract symptoms; R09.02 Hypoxemia; R73.03 Prediabetes; K21.9 Gastro-esophageal reflux disease without esophagitis; K59.00 Constipation, unspecified; N18.30 Chronic kidney disease, stage 3 unspecified; Z87.891 Personal history of nicotine dependence; Z79.82 Long term (current) use of aspirin; Z79.899 Other long term (current) drug therapy; Z86.73 Personal history of transient ischemic attack (TIA), and cerebral infarction without residual deficits; Z11.52 Encounter for screening for COVID-19; Z68.34 Body mass index [BMI] 34.0-34.9, adult
CPT/HCPCS: 36600; 70450; 70496; 70498; 71045; 71275; 80048; 80053; 80061; 80164; 81003; 81015; 82140; 82805; 82962; 83036; 83605; 83735; 83880; 84443; 84484; 85025; 85027; 87070; 87502; 87811; 92526; 92610; 93005; 93306; 94640; 96374; 96375; 99285; Q9950; Q9967

== ENCOUNTER 2024-09-30 05:03 | Inpatient (IN) | payer MEDICARE, OTHER, SELFPAY ==
[2024-09-29 21:59] VITALS: BP 118/79
[2024-09-29 22:21] LABS: % Basophils 0.3 % (0-2); % Eosinophils 0.7 % (0-6); % Immature Granulocytes 0.5 % (0-0.5); % Lymphocytes 12.1 % (20.5-51.1); % Neutrophils 75.4 % (42.2-75.2); Absolute Eosinophils 0.1 10^3/uL (0-0.7); Absolute Immature Granulocytes 0.1 10^3/uL (0-0.05); Absolute Lymphocytes 1.2 10^3/uL (1.2-3.4); Absolute Monocytes 1.1 10^3/uL (0.1-0.6); Absolute Neutrophils 7.5 10^3/uL (1.4-6.5); Hematocrit 40.2 % (39.0-52.0); Hemoglobin 13.3 g/dL (13.0-18.0); Mean Corp Hgb Conc. 33.1 g/dL (33.0-37.0); Mean Corpuscular Hgb 30.2 pg (27.0-31.0); Mean Corpuscular Volume 91.2 fL (80.0-94.0); Mean Platelet Volume 10.2 fL (7.4-10.4); Nucleated Red Blood Cells % 0 % (-); Platelet Count 343 10^3/uL (130-400); Red Blood Cell Count 4.41 10^6/uL (4.70-6.10); Red Cell Dist. Width 12.1 % (11.5-14.5); White Blood Cell Count 9.9 10^3/uL (4.8-10.8)
[2024-09-29 22:32] LABS: Blood Urea Nitrogen 32 mg/dl (9-20); Calcium 9.6 mg/dl (8.4-10.2); Carbon Dioxide 33 mmol/L (22-30); Chloride 103 mmol/L (98-107); Glucose 146 mg/dl (70-99); Potassium 4.2 mmol/L (3.5-5.1); Sodium 145 mmol/L (135-145); eGFR 44.74
[2024-09-29 22:38] LABS: Alcohol None Detected
[2024-09-30 00:38] LABS: Urine Albumin Negative (Neg - Trace); Urine Bilirubin Negative (Negative); Urine Character Clear (Clear); Urine Color Yellow; Urine Glucose Negative (Negative); Urine Ketone Negative (Negative); Urine Leukocyte Negative (Negative); Urine Nitrite Negative (Negative); Urine Occult Blood Negative (Negative); Urine Specific Gravity 1.015 (<1.030); Urine Urobilinogen Negative (Neg - 1+)
[2024-09-30 01:07] LABS: Amphetamines Negative (Negative); Barbiturates Negative (Negative); Benzodiazepines Negative (Negative); Buprenorphine Negative (Negative); Cocaine Negative (Negative); Marijuana Negative (Negative); Methadone Negative (Negative); Methamphetamines Negative (Negative); Opiates Negative (Negative); Phencyclidine Negative (Negative); Tricyclic Antidepressants Positive (Negative)
--- NOTE | 2024-09-30 01:38 | ED.GENMED ---
History of Present Illness
General
Chief Complaint: Crisis Evaluation
Time Seen by Provider: 09/30/24 00:18
History of Present Illness
History of Present Illness:
Patient is a 64-year-old man with history of CHF, hypertension, hyperlipidemia, schizoaffective disorder presenting to the emergency department with a mental status change. Per medics patient was found wandering the hallways and knocking on other
people's door. Patient has no recollection of this and is actually confused how even got to the emergency department. He tells me that he has been having slurred speech and has been more confused especially with logical thinking. He does state
that he is upset with his medications as he was on Depakote and Seroquel and he believes that he has many side of is causing him to be this way especially the fact that he intermittently has to scream. He denies any SI or HI. He has been compliant
with medications they have been giving him. Currently no numbness tingling. He states that the slurred speech has resolved.
Past History
Past History
ED Past Medical History: CHF, COPD, HTN, Hypercholesterolemia and Renal failure
ED Past Surgical History: Other (removal L kidney cyst, knee surgery)
Social History
Tobacco: Former smoker
Alcohol: None
Drug: None
Phy Exam
Physical Exam
Physical Exam:
GENERAL: in no acute distress
HEENT: normocephalic, extraocular movements intact, moist oral mucosa
NECK: normal inspection
RESPIRATORY: no respiratory distress, clear to auscultation bilaterally
CARDIOVASCULAR: regular rate and rhythm
ABDOMEN/: soft, non-distended, non-tender to palpation, no rebound or guarding
EXTREMITIES: non-tender, no edema/swelling
NEUROLOGIC: awake and alert, oriented x 2, moves all extremities, no obvious slurred speech, equal strength in upper and lower extremities
SKIN: warm
Course
Orders/Labs/Results
Orders:
Orders
09/29/24 22:05
Crisis Consult Urgent
Reason for Consult: aggressive behavior
Urine Drug Abuse Screen Urgent
Date Specimen was Collected: 09/29/24
Time Specimen was Collected: 22:05
09/29/24 22:11
Alcohol Urgent
Basic Metabolic Panel Urgent
Complete Blood Count/With Diff Urgent
09/30/24 00:29
Urinalysis Reflex To Culture Urgent
Date Specimen was Collected: 09/30/24
Time Specimen was Collected: 00:22
09/30/24 00:35
CT Head W/o Iv Contrast Urgent
Comment:
Reason For Exam: confusion
Abnormal Lab Results
09/29/24 09/30/24
22:11 00:29
RBC 4.41 L 10^6/uL
(4.70-6.10)
Abs Immat Gran (auto) 0.1 H 10^3/uL
(0-0.05)
Absolute Neuts (auto) 7.5 H 10^3/uL
(1.4-6.5)
Absolute Monos (auto) 1.1 H 10^3/uL
(0.1-0.6)
Neutrophils % 75.4 H %
(42.2-75.2)
Lymphocytes % 12.1 L %
(20.5-51.1)
Monocytes % 11.0 H %
(1.7-9.3)
Carbon Dioxide 33 H mmol/L
(22-30)
BUN 32 H mg/dl
(9-20)
Creatinine 1.7 H mg/dL
(0.7-1.3)
Glucose 146 H mg/dl
(70-99)
Ur Tricyclics Screen Positive H
(Negative)
09/29/24 22:11
09/29/24 22:11
Vital Signs
Initial and Last Documented VS:
Initial Vital Signs
Pulse Resp BP Pulse Ox
89 20 118/79 95
09/29/24 21:59 09/29/24 21:59 09/29/24 21:59 09/29/24 21:59
Last Documented Vital Signs
Temp Pulse Resp BP Pulse Ox
97.3 F 89 20 118/79 95
09/29/24 22:05 09/29/24 21:59 09/29/24 21:59 09/29/24 21:59 09/29/24 21:59
MDM/Problems Addressed
Differential Diagnosis Includes:
Patient is a 64-year-old man presenting to the emergency department with a mental status change. On arrival vitals unremarkable exam does show man who is oriented x 2 with no neurodeficits. Given the slurred speech the patient is explaining could
be TIA. Could be metabolic derangement or medication side effect. He does not have any SI or HI. Crisis did evaluate patient and patient meets no involuntary committal criteria. They did clear him from their perspective. Blood work was obtained
prior to my evaluation which does show an VENITA. Will obtain CT scan of his head. Patient will need admission for mental status change, VENITA and likely neuroevaluation.
*Critical Care Note
Total Time (30-74mins, 75-104mins- exclusive of procedures): Not Applicable
Update Note
Update Note:
CT scan per my interpretation with no obvious hemorrhage. Discussed with hospitalist who excepted patient to their service
ED Attending Note
-
Portions of this chart may have been created with voice recognition software.� Occasional wrong word or��sound alike� substitutions may have occurred due to the inherent limitations of voice recognition software.
Discharge Plan
Departure
Prescriptions:
No Action
aspirin 81 mg Tablet,Delayed Release (Dr/Ec)
81 mg PO DAILY
bisacodyl [Dulcolax (bisacodyl)] 10 mg Suppository
10 mg MS DAILYPRN PRN (Reason: IF NO BM AFTR MOM)
docusate sodium [Colace] 100 mg Capsule
100 mg PO BID
albuterol sulfate 90 mcg/actuation Hfa Aerosol Inhaler
2 puff INHALATION R Q6HPRN PRN (Reason: SOB)
acetaminophen [Tylenol] 325 mg Tablet
650 mg PO Q4HPRN PRN (Reason: mild pain)
magnesium hydroxide [Milk of Magnesia] 400 mg/5 mL Suspension
2,400 mg PO [id number] PRN (Reason: constipation)
pantoprazole [Protonix] 40 mg Tablet,Delayed Release (Dr/Ec)
40 mg PO DAILY
melatonin 5 mg Tablet
10 mg PO HS
ipratropium-albuterol 0.5 mg-3 mg(2.5 mg base)/3 mL Solution For Nebulization
3 ml INHALATION R QID
tamsulosin [Flomax] 0.4 mg Capsule
0.8 mg PO QPM
Fleet Enema 19-7 gram/118 mL Enema
118 ml MS DAILYPRN PRN (Reason: if no bm aftr dulolcax)
finasteride 5 mg Tablet
5 mg PO DAILY
furosemide [Lasix] 40 mg Tablet
40 mg PO DAILY
atorvastatin [Lipitor] 40 mg Tablet
40 mg PO HS
carvedilol 25 mg Tablet
25 mg PO BID Qty: 60 0RF
polyethylene glycol 3350 17 gram Powder In Packet
17 g PO DAILY Qty: 30 0RF
clozapine 100 mg Tablet
200 mg PO HS Qty: 60 0RF
clonazepam 0.5 mg Tablet
0.5 mg PO Q6HPRN PRN (Reason: agitation) Qty: 20 0RF
Referrals:
Dalton Martinez I., DO [Family Provider] -
Interventions
Interventions:
*Risk Screen - Suicide Last Done: 09/29/24 22:04
*General Assessment Last Done: 09/29/24 22:04
*Neglect/Abuse Screening Last Done: 09/29/24 22:04
*ED- Fall Risk Assessment Last Done: 09/29/24 22:04
*ED COVID-19 Vaccine History Last Done: 09/29/24 22:04
ED-Psychological Assessment Last Done: 09/29/24 22:15
Discharge Date and Time
Print Language: UPPER SORBIAN
--- NOTE | 2024-09-30 04:23 | HPS.HSE ---
Family Physician
-
Family Physician: Dalton Martinez
Chief Complaint
-
Altered mental status
History of Present Illness
This is a 64-year-old was sent in from psych unit for altered mental status.
Patient has past medical history significant for diastolic CHF, COPD not on home O2, bipolar and schizophrenia. He was recently admitted to the hospital for altered mental status. The time was thought to have drug-induced toxic encephalopathy
secondary to his antipsychotics. Subsequently there was concern for's use of Depakote. With comanagement by psychiatry, depakote was discontinued. Standing dose of clonazepam was stopped. Clozapine was reduced. Patient was found to have acute
urinary retention status post urinary catheter placement. Catheter successfully removed and patient voided prior to discharge from the hospital. At time of discharge patient was felt to be back at his baseline psychiatric state.
He was sent into the emergency department today because he was found wandering the halls at his facility. According to ED staff patient had no recollection of the event. He stated that he had dysarthria that resolved. For me patient is alert and
oriented x 3. He shows no focal neurological deficit. His mentation is intact. He has basically stated that ever since the alteration of his psychiatric medicines he has had generalized aches and pains. He reports muscle stiffness and difficulty
walking. He also felt that his head is more clouded. He reports chronic back pain. He denies any numbness or tingling in his legs. He denies any dysuria, incontinence urinary frequency or hesitancy. He denies having any fevers or chills.
In the emergency department he was afebrile, blood pressure was 118/80 with a pulse of 89 and was satting 98% on room air. CT of the head was negative. UA was negative. CBC was unremarkable. Electrolytes were stable. BUN and creatinine are
notable for a creatinine of 1.7 which is up from 1.1 previously.
Medical History
Past Medical History
Past Medical History: Reports Other
Additional Past Medical History:
Hypertension
ASCVD / Prior CVA
Schizoaffective Disorder
Bipolar Disorder
Chronic HFpEF
COPD
BPH
Obesity
Past Surgical History: Reports Other
Additional Past Surgical History:
Unknown
Social History
Tobacco: Former Smoker
Alcohol: None
Drug: None
Family History
Family History: Unable to Obtain
Allergies / Home Medications
Allergies reflects when Allergies were last updated in Collect.
Home Medications with original date entered in Collect
Allergy/Medication List:
Allergies
Allergy/AdvReac Type Severity Reaction Status Date / Time
aripiprazole Allergy Unknown Verified 09/20/24 00:41
thiothixene Allergy Unknown Verified 09/20/24 00:41
Home Medications
1. Acetaminophen 325 mg tablet (Tylenol) 650 mg PO Q4HPRN PRN mild
pain 04/22/24.
2. Albuterol sulfate 90 mcg/actuation aerosol inhaler 2 puff
inhalation R Q6HPRN PRN SOB 04/22/24.
3. Aspirin 81 mg tablet,delayed release 81 mg PO DAILY Blood Clot
Prevention/Tx 04/22/24.
4. Bisacodyl 10 mg rectal suppository (Dulcolax (bisacodyl)) 10 mg
SC DAILYPRN PRN IF NO BM AFTR MOM 04/22/24.
5. Docusate sodium 100 mg capsule (Colace) 100 mg PO BID
Constipation 04/22/24.
6. Magnesium hydroxide 400 mg/5 mL oral suspension (Milk of
Magnesia) 2,400 mg PO [id number] PRN constipation 04/22/24.
7. Melatonin 5 mg tablet 10 mg PO HS Sleep 04/22/24.
8. Pantoprazole 40 mg tablet,delayed release (Protonix) 40 mg PO
DAILY Gastrointestinal Issue 04/22/24.
9. Atorvastatin 40 mg tablet (Lipitor) 40 mg PO HS cholesterol
09/20/24.
10. Finasteride 5 mg tablet 5 mg PO DAILY Urinary Issue 09/20/24.
11. Furosemide 40 mg tablet (Lasix) 40 mg PO DAILY Fluid
Retention/Swelling 09/20/24.
12. Ipratropium 0.5 mg-albuterol 3 mg (2.5 mg base)/3 mL
nebulization soln 3 ml inhalation R QID Lung/Breathing Issues
09/20/24.
13. Sodium phosphates 19 gram-7 gram/118 mL enema (Fleet Enema) 118
ml SC DAILYPRN PRN if no bm aftr dulcolax 09/20/24.
14. Tamsulosin 0.4 mg capsule (Flomax) 0.8 mg PO QPM Urinary Issue
09/20/24.
15. Carvedilol 25 mg tablet 25 mg PO BID #60 tabs 09/23/24.
16. Clonazepam 0.5 mg tablet 0.5 mg PO Q6HPRN PRN agitation #20
tabs 09/23/24.
17. Clozapine 100 mg tablet 200 mg (2 x 100 mg) PO HS #60 tabs
09/23/24.
18. Polyethylene glycol 3350 17 gram oral powder packet 17 g PO
DAILY #30 ea 09/23/24.
Review of Systems
-
History Source: Patient
Constitutional: Reports No Symptoms
EENT: Reports No Symptoms
Respiratory: Reports No Symptoms
Cardiac: Reports No Symptoms
Abdomen/GI: Reports No Symptoms
: Reports No Symptoms
Musculoskeletal: Reports Joint Pain
Skin: Reports No Symptoms
Neurological: Reports No Symptoms
Endocrine: Reports No Symptoms
Hematologic/Lymphatic: Reports No Symptoms
Psych: Reports Anxiety; Denies Dementia, Suicidal or Audio or Visual Hallucinations
Physical Exam
Vital Signs
Vital Signs
Temp Pulse Resp BP Pulse Ox
97.3 F 89 20 118/79 95
09/29/24 22:05 09/29/24 21:59 09/29/24 21:59 09/29/24 21:59 09/29/24 21:59
Physical Exam
General: Well Developed and Conversant
HEENT: NormoCephalic, Anicteric, Moist mucous membranes and Atraumatic
Respiratory: Clear
Cardiac: S1/S2 and Regular Rhythm
Breast: Deferred by me
GI: Soft, Non Distended and Normal Bowel Sounds
Rectal: Deferred by Provider
Genito-urinary: Deferred by me
Musculoskeletal: No Clubbing, No Cyanosis and No Edema
Skin: Warm
Neuro: AO x 3 and Nonfocal/grossly intact; No Slurred Speech or Facial Droop
Hematologic/Lymphatic: No Lymphadenopathy
Psych: Anxious
Laboratory Results
-
09/29/24 22:11
09/29/24 22:11
Data Reviewed
-
CT Scan: Report Reviewed by me
Lab Data: Labs Reviewed by me
Old Records: Reviewed
Impression/Plan
-
IMPRESSION:
64-year-old with bipolar and schizoaffective disorder on neuroleptics will recently had adjustment of his medications due to oversedation and toxic encephalopathy from medications (elevated depakote level) comes to the emergency department with
concern for altered mental status. Patient was found wandering at his facility and was sent to the emergency department. He did not recall wandering. In my evaluation of the patient he was not disheveled, he was oriented to person place and time.
He was able to give history of his recent admission and alteration of his psych meds. He reports this has resulted in changes such as stiffness and muscle aches and pains as well as joint aches and pains and difficulty ambulating. He denies
urinary symptoms. He had no dysarthria and he has no other focal deficits. Labs only notable for a creatinine of 1.7 but otherwise unremarkable. Admitting to medicine for VENITA with psych consult for medication management
PLAN:
1 VENITA - Unexplained. Euvolemic. Recent retention requiring null but has been voiding here. No nephrotoxins. No abdominal pain.
- admit to med/surg
- urine is without any evidence of active sediments, no peripheral eos, negative protein
- check urine sodium/cr
- kidney bladder u/s to rule out hydronephrosis
- continue tamsulosin
- hold lasix for now
- nephrology consultation.
- avoid nephrotoxins
2. Psych - He is not encephalopathic at this time. He reports complaints with medication changes but appears to have preserved though processes, no hallucinations and not particularly dishevled. No SI. No HI.
- will continue current medications and monitor
- consider psych consultation
3. Dysarthria - completely resolved. No focal deficits. Unlikely CVA
- continue his daily aspirin and statin
4. HTN with diastolic CHF
- continue carvedilol, prn lasix
DVT PPX - heparin sq
Code status - full code
[2024-09-30 05:54] VITALS: BP 136/90; BMI 32.2
[2024-09-30 07:20] VITALS: BP 149/85
[2024-09-30] MEDS: DUONEB 3 ML INH ×4 (07:51→19:40)
[2024-09-30] MEDS: PROTONIX 40 MG PO (08:34)
[2024-09-30] MEDS: LASIX 40 MG PO (08:34)
[2024-09-30] MEDS: MIRALAX 17 GRAMS PO (08:34)
[2024-09-30] MEDS: COLACE 100 MG PO ×2 (08:34→20:51)
[2024-09-30] MEDS: ASPIR LOW (ENTERIC COATED) 81 MG PO (08:34)
[2024-09-30] MEDS: COREG 25 MG PO ×2 (08:35→20:51)
[2024-09-30] MEDS: HEPARIN 5000 UNITS SC ×3 (08:35→23:49)
[2024-09-30 09:31] LABS: Hepatitis C Antibody Negative (Negative)
[2024-09-30] MEDS: LR 1000 IV ×2 (10:21→23:48)
--- NOTE | 2024-09-30 10:43 | W.PN.UPDATE ---
Update Note
Progress Note Update
Nonbillable note
1. Acute kidney injury -baseline creatinine 1.1, creatinine 1.8 today. Patient described me a procedure with sounded like TURP also stated history of hematuria in the past likely. Presuming due to BPH at that time. Denies of having any urinary
retention/voiding difficulty currently. Bladder scan protocol ordered. Patient not on any nephrotoxic medication. Maintain on IV fluid LR and follow-up blood work
2. Behavioral changes/encephalopathy -patient was reported to be agitated/confused yesterday. Able to communicate coherently although febrile with hypomanic to me. Patient concerned about abnormal leg movements/tremors with recent switch of
psychiatric medication. Patient stated Clozaril makes him feel like this and does not want to take it. Psychiatry has been consulted for further input.
[2024-09-30] MEDS: TUMS CHEWABLE TABLET 400 MG PO (13:31)
--- NOTE | 2024-09-30 13:54 | W.PN.UPDATE ---
Update Note
Progress Note Update
Psychiatric evaluation dictated.
This 64 yo man has long psychiatric history, having had his initial breakdown at the age of 23 while in college. He has been on numerous psychotropic meds in the past. Presently was on Clozaril 200 mg hs and Clonopin 0.5 on prn basis. He was
recently discharged on 09/23 from . Yesterday he was wandering about his facility [facility] where he lives in supervised setting and was apparently confused. Currently has lot of twitching involving his facial muscles. He is not acutely
psychotic, no suicidal thoughts present. He feels that Clozaril is responsible for his wandering about and possibly twitching.
I called Dr. 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
For now I will decrease the Clozaril to 100 mg HS.
Will add Neurontin 100 bid which could help with anxiety and possibly muscle twitching.
He wants to continue some herbal supplements he takes at home but I told him Dr. Marley would have to approve based on what ingredients are in it.
We will F/U.
--- NOTE | 2024-09-30 14:25 | W.CON.NEPH ---
Consultation
-
Date/Time Consultation Requested: 09/30/2024 7:00 AM
Date/Time Consultation Performed: 09/30/2024 2:15 PM
Requesting Provider: Dr. Marley
Performing Provider: Dr. Howe
Reason for Consultation: Acute Kidney injury
Medical History
-
Chief Complaint: Acute kidney injury
History of Present Illness:
The patient is a 64-year-old male with a past medical history of congestive heart failure with preserved ejection fraction maintained on 40 mg daily of Lasix. He has a history of bipolar and schizophrenia and is maintained on clonazepam and
clozapine. He has a history of BPH maintained on tamsulosin and finasteride. He recently was admitted earlier this month with acute right urinary retention requiring Jessica catheter which was then discontinued at discharge. He presented to the ""hospital last evening with change in mental status and a creatinine escalation to 1.7 off his baseline of 1.1 from discharge date from 09/23/24. Nephrology was consulted for acute kidney injury
Past Medical History
Hypertension
ASCVD / Prior CVA
Schizoaffective Disorder
Bipolar Disorder
Chronic HFpEF
COPD
BPH
Obesity
Social History
Tobacco: Former Smoker
Alcohol: None
Family History
Family History: Not Pertinent
Allergies / Home Medications
Allergy/AdvReac Type Severity Reaction Status Date / Time
aripiprazole Allergy Unknown Verified 09/20/24 00:41
thiothixene Allergy Unknown Verified 09/20/24 00:41
�Medication �Instructions �Recorded �Confirmed �Type
acetaminophen 325 mg tablet 650 mg PO Q4HPRN PRN mild pain 04/22/24 09/20/24 History
(Tylenol)
albuterol sulfate 90 mcg/actuation 2 puff inhalation R Q6HPRN PRN SOB 04/22/24 09/20/24 History
aerosol inhaler
aspirin 81 mg tablet,delayed 81 mg PO DAILY Blood Clot 04/22/24 09/20/24 History
release Prevention/Tx
bisacodyl 10 mg rectal suppository 10 mg DC DAILYPRN PRN IF NO BM 04/22/24 09/20/24 History
(Dulcolax (bisacodyl)) AFTR MOM
docusate sodium 100 mg capsule 100 mg PO BID Constipation 04/22/24 09/20/24 History
(Colace)
magnesium hydroxide 400 mg/5 mL 2,400 mg PO [id number] PRN 04/22/24 09/20/24 History
oral suspension (Milk of Magnesia) constipation
melatonin 5 mg tablet 10 mg PO HS Sleep 04/22/24 09/20/24 History
pantoprazole 40 mg tablet,delayed 40 mg PO DAILY Gastrointestinal 04/22/24 09/20/24 History
release (Protonix) Issue
atorvastatin 40 mg tablet (Lipitor) 40 mg PO HS cholesterol 09/20/24 09/20/24 History
finasteride 5 mg tablet 5 mg PO DAILY Urinary Issue 09/20/24 09/20/24 History
furosemide 40 mg tablet (Lasix) 40 mg PO DAILY Fluid 09/20/24 09/20/24 History
Retention/Swelling
ipratropium 0.5 mg-albuterol 3 mg 3 ml inhalation R QID 09/20/24 09/20/24 History
(2.5 mg base)/3 mL nebulization Lung/Breathing Issues
soln
sodium phosphates 19 gram-7 118 ml DC DAILYPRN PRN if no bm 09/20/24 09/20/24 History
gram/118 mL enema (Fleet Enema) aftr dulolcax
tamsulosin 0.4 mg capsule (Flomax) 0.8 mg PO QPM Urinary Issue 09/20/24 09/20/24 History
carvedilol 25 mg tablet 25 mg PO BID #60 tabs 09/23/24 Rx
clonazepam 0.5 mg tablet 0.5 mg PO Q6HPRN PRN agitation #20 09/23/24 Rx
tabs
clozapine 100 mg tablet 200 mg (2 x 100 mg) PO HS #60 tabs 09/23/24 Rx
polyethylene glycol 3350 17 gram 17 g PO DAILY #30 ea 09/23/24 Rx
oral powder packet
Review of Systems
-
History Source: Patient
EENT: No Symptoms
Respiratory: No Symptoms
Cardiac: No Symptoms
Abdomen/GI: No Symptoms
Musculoskeletal: Edema
Skin: No Symptoms
Neurological: No Symptoms
Endocrine: No Symptoms
Hematologic/Lymphatic: No Symptoms
Physical Exam
Vital Signs
Vital Signs
Temp Pulse Resp BP Pulse Ox
98.1 F 76 18 149/85 97
09/30/24 07:20 09/30/24 11:21 09/30/24 11:21 09/30/24 08:35 09/30/24 11:21
Lab Results
09/29/24 22:11
09/29/24 22:11
WBC 9.9 10^3/uL (4.8-10.8) 09/29/24 22:11
RBC 4.41 10^6/uL (4.70-6.10) L 09/29/24 22:11
Hgb 13.3 g/dL (13.0-18.0) 09/29/24 22:11
Hct 40.2 % (39.0-52.0) 09/29/24 22:11
Plt Count 343 10^3/uL (130-400) D 09/29/24 22:11
Sodium 145 mmol/L (135-145) 09/29/24 22:11
Potassium 4.2 mmol/L (3.5-5.1) 09/29/24 22:11
Chloride 103 mmol/L (98-107) 09/29/24 22:11
Carbon Dioxide 33 mmol/L (22-30) H 09/29/24 22:11
BUN 32 mg/dl (9-20) H 09/29/24 22:11
Creatinine 1.7 mg/dL (0.7-1.3) H 09/29/24 22:11
eGFR 44.74 09/29/24 22:11
Glucose 146 mg/dl (70-99) H 09/29/24 22:11
Calcium 9.6 mg/dl (8.4-10.2) 09/29/24 22:11
Physical Exam
General: AOx3, Nontoxic , NAD
HEENT: PERRL, EOMI, Anicteric, Conjunctivae Clear, Ear/Nose Intact, Hearing Normal, Oropharynx Clear/Moist, Dentition poor , Facial Symmetry, Neck Supple, Neck: Trachea Midline, No JVD and No Thyromegaly, no Bruits
Respiratory: Clear to auscultation bilaterally with normal lung excursion
Cardiac: S1/S2 and Regular Rate/Rhythm
Breast: Deferred by me
Abdomen: Soft, Nontender, Nondistended, Normal Bowel Sounds and No Hepatosplenomegaly
Rectal: Deferred by Provider
Genito-urinary: No Costovertebral Tenderness
Extremities: No Clubbing, No Cyanosis and plus one pitting pre tibial Edema
Skin: No Rash or open lesions
Neuro: Nonfocal/Grossly Intact, CN II-XII (Intact) and Strength (Musculoskeletal exam 5 out of 5 both upper and lower extremities)
Hematologic/Lymphatic: No Cervical Lymphadenopathy, No Submandibular Lymphadenopathy and No Supraclavicular Lymphadenopathy
Psych: Mood/affect anxious and tangential
Vascular: plus 1 pedal and radial pulses
Data Reviewed
-
Ultrasound: Report Reviewed by me (Ultrasound report reviewed notable for right kidney atrophy at 10.4 cm and left kidney at 12.1 cm no evidence of hydronephrosis)
Labs: Labs Reviewed by me ([facility] CBC urinalysis)
Old Records: Reviewed (Reviewed previous lab work from date 09/23/2024 creatinine 1.1)
Assessment/Plan
-
Impression:
VENITA
Change of Mental Status
Hypertension
ASCVD / Prior CVA
Schizoaffective Disorder
Bipolar Disorder
Chronic HFpEF
COPD
BPH
Obesity
Hx of urinary retention
Plan:
VENITA:
- Suspect due to obstructive uropathy despite no hydronephrosis on renal ultrasound given high PVR
- Check bladder scan and if PVR greater than 400 [address] Jessica and reconsult urology
- Urinalysis is completely bland and patient remains hemodynamically stable with no identifiable nephrotoxin exposures (except previous CT of Chest with iv contrast on 09/21/24)
-Okay for IV fluids today, I do note the patient weight was recorded as 6 kg less than discharge weight from 09/23/2024
-devin held, but volume status somewhat difficult to ascertain given edema
- Check proBNP
[2024-09-30 14:46] LABS: Troponin I < 0.012 ng/ml
[2024-09-30 15:10] VITALS: BP 116/81
[2024-09-30] MEDS: TYLENOL 650 MG PO (16:51)
[2024-09-30] MEDS: KLONOPIN 0.5 MG PO (16:51)
[2024-09-30] MEDS: FLOMAX 0.8 MG PO (16:52)
[2024-09-30 19:10] VITALS: BP 138/75
--- NOTE | 2024-09-30 19:10 | CONS.URO ---
Consultation
-
Reason for Consultation: Urinary retention, difficult null
Medical History
History of Present Illness
64M prior urologic history of voiding issues, BPH
On flomax and finasteride for years
He believes he had some type of prostate or urinary tract procedure in the past when he lived elsewhere
He has multiple psychiatric diagnoses and does not live independently
Poor historian and unable to say where and who took care of his past urologic issues
He has multiple recent ER visits and hospital admits which include urinary issues including gross hematuria, urinary retention, UTI
During last admission had retention that seemed mostly resolved by time of discharge though there is no records of a PVR
Renal US this admission showed 450cc PVR and he has significant VENITA of unclear source. No hydronephrosis
Nephrology concerned this could be related to urinary retention
Urology consulted due to difficult null placement
Past Medical History
Past Medical History: CHF, COPD and Other (BPH)
Past Surgical History: Urological
Social History
Tobacco: Non-smoker
Living: Assisted Living
Employment: Not Employed
Family History
Family History: Reviewed & Not Pertinent
Allergies/Home Medications
Allergies
Allergy/AdvReac Type Severity Reaction Status Date / Time
aripiprazole Allergy Unknown Verified 09/20/24 00:41
thiothixene Allergy Unknown Verified 09/20/24 00:41
Home Medications
�Medication �Instructions �Recorded �Confirmed �Type
acetaminophen 325 mg tablet 650 mg PO Q4HPRN PRN mild pain 04/22/24 09/20/24 History
(Tylenol)
albuterol sulfate 90 mcg/actuation 2 puff inhalation R Q6HPRN PRN SOB 04/22/24 09/20/24 History
aerosol inhaler
aspirin 81 mg tablet,delayed 81 mg PO DAILY Blood Clot 04/22/24 09/20/24 History
release Prevention/Tx
bisacodyl 10 mg rectal suppository 10 mg MI DAILYPRN PRN IF NO BM 04/22/24 09/20/24 History
(Dulcolax (bisacodyl)) AFTR MOM
docusate sodium 100 mg capsule 100 mg PO BID Constipation 04/22/24 09/20/24 History
(Colace)
magnesium hydroxide 400 mg/5 mL 2,400 mg PO [id number] PRN 04/22/24 09/20/24 History
oral suspension (Milk of Magnesia) constipation
melatonin 5 mg tablet 10 mg PO HS Sleep 04/22/24 09/20/24 History
pantoprazole 40 mg tablet,delayed 40 mg PO DAILY Gastrointestinal 04/22/24 09/20/24 History
release (Protonix) Issue
atorvastatin 40 mg tablet (Lipitor) 40 mg PO HS cholesterol 09/20/24 09/20/24 History
finasteride 5 mg tablet 5 mg PO DAILY Urinary Issue 09/20/24 09/20/24 History
furosemide 40 mg tablet (Lasix) 40 mg PO DAILY Fluid 09/20/24 09/20/24 History
Retention/Swelling
ipratropium 0.5 mg-albuterol 3 mg 3 ml inhalation R QID 09/20/24 09/20/24 History
(2.5 mg base)/3 mL nebulization Lung/Breathing Issues
soln
sodium phosphates 19 gram-7 118 ml MI DAILYPRN PRN if no bm 09/20/24 09/20/24 History
gram/118 mL enema (Fleet Enema) aftr dulolcax
tamsulosin 0.4 mg capsule (Flomax) 0.8 mg PO QPM Urinary Issue 09/20/24 09/20/24 History
carvedilol 25 mg tablet 25 mg PO BID #60 tabs 09/23/24 Rx
clonazepam 0.5 mg tablet 0.5 mg PO Q6HPRN PRN agitation #20 09/23/24 Rx
tabs
clozapine 100 mg tablet 200 mg (2 x 100 mg) PO HS #60 tabs 09/23/24 Rx
polyethylene glycol 3350 17 gram 17 g PO DAILY #30 ea 09/23/24 Rx
oral powder packet
Physical Exam
Vital Signs
Vital Signs
Temp Pulse Resp BP Pulse Ox
98.6 F 84 18 116/81 97
09/30/24 15:10 09/30/24 15:28 09/30/24 15:28 09/30/24 15:10 09/30/24 15:28
Lab / Testing Results
Laboratory Results
09/29/24 22:11
09/29/24 22:11
Physical Exam
General: Well Nourished and No Apparent Distress
HEENT: Normocephalic and Other (poor dentition)
Respiratory: Clear
GI: Soft and Non Tender
Genito-urinary: No Costovertebral Tend
Neuro: AO x 3
Psych: Anxious
Assessment / Plan
-
64M with chronic urinary retention, BPH on finasteride and tamsulosin
Schizophrenia/bipolar disorder and unable to provide a urologic history but possible prior procedures were done
Admitted with AMS and in urinary retention 600cc, consult for difficult null
- 18Fr coude catheter placed with 600cc clear urine output
- Unclear how much urinary retention contributes to VENITA - less likely without hydronephrosis/reflux but possible
- Recommend keeping null in place at discharge - he will need video urodynamics and cystoscopy to evaluate in detail for detrusor function and eval for possible outlet procedure
[2024-09-30] MEDS: NEURONTIN 100 MG PO (20:51)
[2024-09-30] MEDS: ProAIR HFA INHALER 2 PUFF INH (22:46)
[2024-09-30] MEDS: CLOZARIL 100 MG PO (22:55)
[2024-09-30] MEDS: LIPITOR 40 MG PO (22:56)
[2024-09-30] MEDS: MELATONIN 10 MG PO (22:56)
[2024-09-30 23:20] VITALS: BP 135/77
[2024-10-01] VITALS (8 sets, daily range): BP systolic 108–139; BP diastolic 69–101
[2024-10-01] MEDS: KLONOPIN 0.5 MG PO (00:28)
--- NOTE | 2024-10-01 02:03 | PTCARENOTE ---
10/01: 00:50 pt agitated, confused, pulling out null and at iv pump. medications used for agitation. pt not redirectable due to auditory hallucinations causing increased agitation. Mitts and 2 point soft limb restraints applied. 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
--- NOTE | 2024-10-01 03:19 | PTCARENOTE ---
10/01: pt agitated. fluids unable to be administered through either line. iv team assessed, lines flushed. pt too tense for iv fluids. program technician notified
[2024-10-01] MEDS: DUONEB 3 ML INH ×4 (07:38→17:55)
[2024-10-01 07:52] LABS: NT-proBNP 83.4 pg/ml
[2024-10-01 08:07] LABS: Blood Urea Nitrogen 32 mg/dl (9-20); Calcium 9.5 mg/dl (8.4-10.2); Carbon Dioxide 30 mmol/L (22-30); Chloride 102 mmol/L (98-107); Estimated Creatinine Clearance 72 ml/min; Glucose 114 mg/dl (70-99); Potassium 3.9 mmol/L (3.5-5.1); Sodium 139 mmol/L (135-145); eGFR > 60.00
[2024-10-01] MEDS: MIRALAX 17 GRAMS PO (10:03)
[2024-10-01] MEDS: ASPIR LOW (ENTERIC COATED) 81 MG PO (10:04)
[2024-10-01] MEDS: PROTONIX 40 MG PO (10:04)
[2024-10-01] MEDS: NEURONTIN 100 MG PO ×2 (10:04→21:37)
[2024-10-01] MEDS: COLACE 100 MG PO ×2 (10:04→21:36)
[2024-10-01] MEDS: HEPARIN 5000 UNITS SC ×2 (10:05→17:05)
[2024-10-01] MEDS: COREG 25 MG PO ×2 (10:05→21:36)
--- NOTE | 2024-10-01 10:32 | W.PN.URO.CBU ---
Today's Communication / Plan
-
Maintain null at discharge
Outpatient follow up for further evaluation
Please call with any additional questions
Assessment / Plan
-
64M with chronic urinary retention, BPH on finasteride and tamsulosin
Schizophrenia/bipolar disorder and unable to provide a good urologic history but possible prior procedures were done
Admitted with AMS and in urinary retention 600cc, consult for difficult null
- 18Fr coude catheter placed with 600cc clear urine output
- Unclear how much urinary retention contributes to VENITA - less likely without hydronephrosis/reflux but possible, and now VENITA improved considerably after null placement
- Recommend keeping null in place at discharge - he will need video urodynamics and cystoscopy to evaluate in detail for detrusor function and eval for possible outlet procedure like TURP. Unclear how much of his urinary retention is caused by the
anticholinergic effects of his medication regimen
- Outpatient follow up for further evaluation and discussion
Diagnosis
-
Date of Service: October 01, 2024
-
Patient Diagnosis:
BPH
Urinary retention
Post Op Day:
Subjective
-
tolerating null
Objective
-
Vital Signs
Temp Pulse Resp BP Pulse Ox
98.0 F 77 16 137/80 92
10/01/24 07:20 10/01/24 10:05 10/01/24 07:42 10/01/24 10:05 10/01/24 09:42
Intake and Output
09/30/24 10/01/24 10/02/24
06:59 06:59 06:59
Intake Total 480 / 480 1440 / 1440
Output Total 1225 / 1225
Balance 480 / 480 215 / 215
Intake:
Oral fluids 480 / 480 1440 / 1440
Output:
Urine, Null 675 / 675
Urine, Voided 550 / 550
Other:
Number of approximated MODERATE 1
amounts of urine
Number of approximated LARGE 1
amounts of urine
Laboratory Results
09/29/24 22:11
10/01/24 06:51
Physical Exam
-
General - well developed, well nourished, no acute distress
Chest - clear bilaterally
Abdomen - soft, non-tender
Genitalia -null in place, clear
--- NOTE | 2024-10-01 11:55 | CM ---
Reviewed the chart notes and spoke with the patient at the bedside. The patient resides as a fdc resident of [facility]. Per OFE Quesada from [facility], the patient is ambulatory with a rolling walker. CM continues to be available
to patient/family and is monitoring medical plan for needs at discharge.
Plan: Discharge back to [facility] when medically stable. No precert required.
--- NOTE | 2024-10-01 11:59 | W.PN.HOSP.TC ---
Today's Communication/Plan
-
see note
Assessment / Plan
Assessment / Plan
1. Acute toxic metabolic encephalopathy
Agitation
- patient was sent in for agitation/aggressive behavior by assisted staff
- Patient was hospitalized from 09/20 to 09/23 for similar issues and psychiatric medications were adjusted
- Psychiatry consulted again this hospitalization
- Last night patient was agitated and required restraints
- Currently on regimen of clozapine 100 mg at bedtime/gabapentin 100 mg twice daily and Klonopin half milligram every 6 hours
2. Urinary retention
- Patient was noted to having urinary retention, possibility of anticholinergic effects of psych meds
- Jessica catheter was difficult to be placed and urology help required
- Patient also been started on flomax
- Patient was pulling at Jessica catheter and required to be restrained
3. VENITA
- Renal function is improved after Jessica catheter placement
- Patient usually on Lasix at facility, hold for now with renal dysfunction
- Initial renal dysfunction likely from obstructive uropathy
4. Acute hypoxic respiratory insufficiency
- Patient likely developing minimal pulmonary congestion requiring oxygen support
- Will start furosemide in 24 hours after kidney function normalized
5. Essential hypertension
- Maintained on Coreg
6. Hyperlipidemia
- Continue on atorvastatin home dose
DVT PPX - Heparin subq
Full code
Total time spent : 52 mins
Anticipated Discharge: > 48 hours
Subjective/Interval History
-
Date of Service: October 01, 2024
Patient was agitated in the night requiring benzodiazepine
In the morning patient is on restraints and somewhat encephalopathic/sedated
Last evening also patient was found to having urinary retention and was declining Jessica catheter, after discussion with the cross cover physician patient agreed for Jessica placement
Objective Data
-
Labs:
Laboratory Results
10/01/24
06:51
Sodium 139
Potassium 3.9
Chloride 102
Carbon Dioxide 30
BUN 32 H
Creatinine 1.3
Glucose 114 H
Calcium 9.5
Vital Signs:
Vital Signs
Temp Pulse Resp BP Pulse Ox
97.5 F 72 16 133/74 92
10/01/24 11:07 10/01/24 11:22 10/01/24 11:22 10/01/24 11:07 10/01/24 11:22
I&O
09/30/24 10/01/24 10/02/24
06:59 06:59 06:59
Intake Total 480 / 480 1440 / 1440
Output Total 1225 / 1225
Balance 480 / 480 215 / 215
Review of Systems
-
Unable to obtain full review of systems at this time due to: Acuity
Physical Exam
-
HEENT: Oxygen
GI: Soft, Nontender and Nondistended; Negative Organomegaly
Genito-urinary: Other (Jessica catheter in place - clear urine)
Skin: Negative Rash
Neuro: Awake; Negative Alert or Oriented
--- NOTE | 2024-10-01 11:59 | W.PN.NEPH.PH ---
Today's Communication / Plan
-
see plan
Assessment/Plan
-
Impression:
VENITA
Change of Mental Status
Hypertension
ASCVD / Prior CVA
Schizoaffective Disorder
Bipolar Disorder
Chronic HFpEF
COPD
BPH
Obesity
Hx of urinary retention
Plan:
VENITA:
- Suspect due to obstructive uropathy despite no hydronephrosis on renal ultrasound given high PVR
cr better post null placement - urology follows
-Okay for IV fluids today, I do note the patient weight was recorded as 6 kg less than discharge weight from 09/23/2024
-devin de la paz, but volume status somewhat difficult to ascertain given edema, BNP is low
wt is lower than last d/c
if pt has poor intake ok for gentle IVF
will s/o, call with ?s
-
-
Date of Service: October 01, 2024
CC / HPI / ROS
-
Chief Complaint:
VENITA
History of Present Illness:
cr better at 1.3 post null, non oliguric
Bp stable
Review of Systems:
no fever, pt in soft wrist restraints
Labs
-
Labs:
WBC 9.9 10^3/uL (4.8-10.8) 09/29/24 22:11
RBC 4.41 10^6/uL (4.70-6.10) L 09/29/24 22:11
Hgb 13.3 g/dL (13.0-18.0) 09/29/24 22:11
Hct 40.2 % (39.0-52.0) 09/29/24 22:11
Plt Count 343 10^3/uL (130-400) D 09/29/24 22:11
Sodium 139 mmol/L (135-145) 10/01/24 06:51
Potassium 3.9 mmol/L (3.5-5.1) 10/01/24 06:51
Chloride 102 mmol/L (98-107) 10/01/24 06:51
Carbon Dioxide 30 mmol/L (22-30) 10/01/24 06:51
BUN 32 mg/dl (9-20) H 10/01/24 06:51
Creatinine 1.3 mg/dL (0.7-1.3) 10/01/24 06:51
eGFR > 60.00 10/01/24 06:51
Glucose 114 mg/dl (70-99) H 10/01/24 06:51
Calcium 9.5 mg/dl (8.4-10.2) 10/01/24 06:51
Qvp-B-Enrdrbtkbmc Pept 83.4 pg/ml 10/01/24 06:51
Physical Exam
-
Vital Signs:
Vital Signs
Temp Pulse Resp BP Pulse Ox
97.5 F 72 16 133/74 92
10/01/24 11:07 10/01/24 11:22 10/01/24 11:22 10/01/24 11:07 10/01/24 11:22
Cardiovascular:: Regular rate and rhythm
Respiratory:: Bilateral: CTA
Lung Excursion:: Normal
Abdomen:: Nontender and Soft
Extremity Edema:: +2: Bilateral:
Null Catheter: Yes
[2024-10-01] MEDS: FLOMAX 0.8 MG PO (17:06)
[2024-10-01] MEDS: TYLENOL 650 MG PO (18:20)
[2024-10-01] MEDS: CLOZARIL 100 MG PO (21:38)
[2024-10-01] MEDS: LIPITOR 40 MG PO (21:38)
[2024-10-01] MEDS: MELATONIN 10 MG PO (21:39)
[2024-10-02] MEDS: HEPARIN 5000 UNITS SC ×3 (00:28→17:11)
[2024-10-02] MEDS: TYLENOL 650 MG PO (01:28)
[2024-10-02 04:00] VITALS: BP 111/51
[2024-10-02 07:40] VITALS: BP 124/70
[2024-10-02] MEDS: DUONEB 3 ML INH ×4 (07:56→20:07)
[2024-10-02 07:58] LABS: Hematocrit 34.6 % (39.0-52.0); Hemoglobin 11.4 g/dL (13.0-18.0); Mean Corp Hgb Conc. 32.9 g/dL (33.0-37.0); Mean Corpuscular Volume 91.1 fL (80.0-94.0); Mean Platelet Volume 10.9 fL (7.4-10.4); Platelet Count 268 10^3/uL (130-400); Red Cell Dist. Width 12.1 % (11.5-14.5); White Blood Cell Count 4.9 10^3/uL (4.8-10.8)
[2024-10-02 08:11] LABS: Blood Urea Nitrogen 26 mg/dl (9-20); Calcium 8.9 mg/dl (8.4-10.2); Carbon Dioxide 27 mmol/L (22-30); Chloride 102 mmol/L (98-107); Estimated Creatinine Clearance 85 ml/min; Glucose 155 mg/dl (70-99); Potassium 3.8 mmol/L (3.5-5.1); Sodium 137 mmol/L (135-145); eGFR > 60.00
[2024-10-02] MEDS: COREG 25 MG PO ×2 (08:38→21:24)
[2024-10-02] MEDS: NEURONTIN 100 MG PO ×2 (08:38→21:24)
[2024-10-02] MEDS: COLACE 100 MG PO ×2 (08:38→21:25)
[2024-10-02] MEDS: PROTONIX 40 MG PO (08:38)
[2024-10-02] MEDS: MIRALAX 17 GRAMS PO (08:38)
[2024-10-02] MEDS: ASPIR LOW (ENTERIC COATED) 81 MG PO (08:38)
--- NOTE | 2024-10-02 09:35 | W.PN.URO.CBU ---
Today's Communication / Plan
-
Trial of void when mental status optimized
Outpatient follow up
Assessment / Plan
-
64M with chronic urinary retention, BPH on finasteride and tamsulosin
Schizophrenia/bipolar disorder and unable to provide a good urologic history but possible prior procedures were done
Admitted with AMS and in urinary retention 600cc, consult for difficult null
- 18Fr coude catheter placed 09/30 with 600cc clear urine output
- Unclear how much urinary retention contributed to VENITA - less likely without hydronephrosis/reflux but possible, and now VENITA resolved
- Continue tamsulosin and finasteride
- Ideally would keep null in place at discharge for further workup, however with agitation and pulling at catheter a repeat trial of void is reasonable
- Unclear how much of his urinary retention is caused by the anticholinergic effects of his medication regimen - minimize if possible
- Repeat trial of void when mental status improved
- If TOV fails, replace null catheter and follow up outpatient for further eval
Diagnosis
-
Date of Service: October 02, 2024
-
Patient Diagnosis:
BPH
Urinary retention
Post Op Day:
Subjective
-
agitated requiring restraints overnight
Objective
-
Vital Signs
Temp Pulse Resp BP Pulse Ox
98.1 F 77 16 124/70 90
10/02/24 07:40 10/02/24 08:38 10/02/24 07:59 10/02/24 08:38 10/02/24 07:59
Intake and Output
10/01/24 10/02/24 10/03/24
06:59 06:59 06:59
Intake Total 1440 / 1440 1320 / 1320
Output Total 1225 / 1225 2800 / 2800
Balance 215 / 215 -1480 / -1480
Intake:
Oral fluids 1440 / 1440 1320 / 1320
Output:
Urine, Null 675 / 675 925 / 925
Urine, Voided 550 / 550 1875 / 1875
Other:
Number of approximated MODERATE 1
amounts of urine
Number of approximated LARGE 1
amounts of urine
Laboratory Results
10/02/24 06:51
10/02/24 06:51
Physical Exam
-
General - well developed, well nourished, no acute distress
Chest - clear bilaterally
Null in place, clear
--- NOTE | 2024-10-02 10:47 | W.PN.UPDATE ---
Update Note
Progress Note Update
Pt seen, chart reviewed. Pt alert, oriented, calm, cooperative, lying in bed. Pt show no overt signs of acute psychosis, denies acute symptoms. Mood is stable, mildly dysphoric, c/o facial movements from Clozapine. More concerning is pt's
urinary retention affecting his kidney functioning, improving with Jessica catheter. Pt reports he had a prior procedure to open his urethra for prostate hypertrophy. Pt aware of his medical issues. Pt states he would like his supplements prior to
discharge, hopes a dependency case manager from his nursing facility can bring them/send them here on Thursday. Pt c/o anxiety since Klonopin 1 mg BID was stopped recently.
Imp: Schizoaffective d/o, stable. Clozapine decreased due to side effects. Pt appears psychiatrically stable for discharge
Rec: Agree with steady taper down of Clozapine- would continue current dose for now (cut in half from 200 mg to 100 mg HS on 09/30)
Will order routine lower dose of Klonopin 0.5 mg BID. Will follow
[2024-10-02 11:14] VITALS: BP 116/71
--- NOTE | 2024-10-02 11:59 | W.PN.HOSP.TC ---
Today's Communication/Plan
-
monitor renal function
off restraints
monitor mentation changes
Assessment / Plan
Assessment / Plan
1. Acute toxic metabolic encephalopathy
Agitation
- patient was sent in for agitation/aggressive behavior by intermediate staff
- Patient was hospitalized from 09/20 to 09/23 for similar issues and psychiatric medications were adjusted
- Currently on regimen of clozapine 100 mg at bedtime/gabapentin 100 mg twice daily and Klonopin half milligram every 6 hours
- Patient mentation better today and off of restraints
- Psychiatry evaluated and help appreciated.
2. Urinary retention
- Patient was noted to having urinary retention, possibility of anticholinergic effects of psych meds
- Null catheter was difficult to be placed and urology help required
- Patient also been started on flomax
- Patient was pulling at Null catheter and required to be restrained
3. VENITA - Improved
- Renal function is improved after Null catheter placement
- Patient usually on Lasix at facility, hold for now with renal dysfunction
- Initial renal dysfunction likely from obstructive uropathy
4. Acute hypoxic respiratory insufficiency
- Improved, continue prn support
5. Essential hypertension
- Maintained on Coreg
6. Hyperlipidemia
- Continue on atorvastatin home dose
DVT PPX - Heparin subq
Full code
Anticipated Discharge: 24 - 48 hours
Subjective/Interval History
-
Date of Service: October 02, 2024
Patient mentation better today
Continues to remain fixated on multivitamin/nutrients
indwelling null catheter with clear urine
Objective Data
-
Labs:
Laboratory Results
10/02/24
06:51
WBC 4.9
Hgb 11.4 L
Hct 34.6 L
Plt Count 268 D
Sodium 137
Potassium 3.8
Chloride 102
Carbon Dioxide 27
BUN 26 H
Creatinine 1.1
Glucose 155 H
Calcium 8.9
Vital Signs:
Vital Signs
Temp Pulse Resp BP Pulse Ox
98.1 F 75 16 124/70 93
10/02/24 07:40 10/02/24 11:53 10/02/24 11:53 10/02/24 08:38 10/02/24 11:00
I&O
10/01/24 10/02/24 10/03/24
06:59 06:59 06:59
Intake Total 1440 / 1440 1320 / 1320
Output Total 1225 / 1225 2800 / 2800
Balance 215 / 215 -1480 / -1480
Review of Systems
-
Respiratory: Reports No Symptoms
Cardiac: Reports No Symptoms
Abdomen/GI: Reports No Symptoms
Physical Exam
-
HEENT: Negative Oxygen
GI: Soft, Nontender and Nondistended; Negative Organomegaly
Genito-urinary: Other (Null catheter in place - clear urine)
Skin: Negative Rash
Neuro: Awake; Negative Alert or Oriented
[2024-10-02] MEDS: KLONOPIN 0.5 MG PO ×2 (12:59→21:24)
--- NOTE | 2024-10-02 13:44 | PTOTSP ---
Speech Pathology Evaluation
64M with admission for change in MS and dysarthria. Dx with CHRISTINA. RN noted difficulty swallowing regular solids, currently tolerating pureed diet.
Impression:
Mild to moderate oropharyngeal dysphagia characterized by prolonged mastication with intermittent s/s of aspiration w/ regular solids. Aspiration risk is increased in the presence of CHRISTINA and impulsive intake.
Recommend:
1. Minced and Moist (IDDSI 5), thin liquids
2. Meds whole in puree
3. Safe swallowing strategies: Partial supervision; small bites; chew well; slow rate
4. ACID TESTER service to follow up re: to assess tolerance of current diet level and upgrade as able
[2024-10-02 15:59] VITALS: BP 115/68
[2024-10-02] MEDS: FLOMAX 0.8 MG PO (17:12)
[2024-10-02 19:30] VITALS: BP 125/80
[2024-10-02] MEDS: MELATONIN 10 MG PO (21:24)
[2024-10-02] MEDS: CLOZARIL 100 MG PO (22:46)
[2024-10-02] MEDS: LIPITOR 40 MG PO (22:49)
[2024-10-02 23:00] VITALS: BP 116/65
[2024-10-03] MEDS: HEPARIN 5000 UNITS SC ×4 (01:24→23:03)
[2024-10-03] MEDS: TUMS CHEWABLE TABLET 400 MG PO ×3 (03:09→20:53)
[2024-10-03 03:19] VITALS: BP 111/58
[2024-10-03 05:13] VITALS: BMI 33.6
--- NOTE | 2024-10-03 06:00 | PTCARENOTE ---
Per MD order, indwelling null catheter pulled. Patient placed on T&A. Reviewed with patient.
[2024-10-03 07:20] VITALS: BP 109/72
[2024-10-03] MEDS: DUONEB INH ×2 (07:23→07:26)
[2024-10-03 07:31] LABS: Hematocrit 32.9 % (39.0-52.0); Hemoglobin 11.1 g/dL (13.0-18.0); Mean Corp Hgb Conc. 33.7 g/dL (33.0-37.0); Mean Corpuscular Hgb 30.2 pg (27.0-31.0); Mean Corpuscular Volume 89.6 fL (80.0-94.0); Mean Platelet Volume 10.8 fL (7.4-10.4); Platelet Count 301 10^3/uL (130-400); Red Blood Cell Count 3.67 10^6/uL (4.70-6.10); White Blood Cell Count 5.6 10^3/uL (4.8-10.8)
[2024-10-03 07:58] LABS: Blood Urea Nitrogen 21 mg/dl (9-20); Calcium 9.5 mg/dl (8.4-10.2); Carbon Dioxide 30 mmol/L (22-30); Chloride 103 mmol/L (98-107); Estimated Creatinine Clearance 86 ml/min; Glucose 135 mg/dl (70-99); Potassium 4.6 mmol/L (3.5-5.1); Sodium 138 mmol/L (135-145); eGFR > 60.00
[2024-10-03] MEDS: COREG 25 MG PO ×2 (08:01→20:40)
[2024-10-03] MEDS: ASPIR LOW (ENTERIC COATED) 81 MG PO (08:01)
[2024-10-03] MEDS: COLACE 100 MG PO ×2 (08:01→20:39)
[2024-10-03] MEDS: PROTONIX 40 MG PO (08:02)
[2024-10-03] MEDS: KLONOPIN 0.5 MG PO ×2 (08:02→20:39)
[2024-10-03] MEDS: MIRALAX 17 GRAMS PO (08:03)
[2024-10-03] MEDS: NEURONTIN 100 MG PO ×2 (08:03→20:41)
[2024-10-03] MEDS: DUONEB 3 ML INH (10:51)
[2024-10-03 11:39] VITALS: BP 111/74
--- NOTE | 2024-10-03 11:42 | PTCARENOTE ---
Pt on TOV this AM to urinate by 1200, pt voided a large incontinent amount on floor. Post void BS is 153, see worklist documentation.
--- NOTE | 2024-10-03 12:53 | W.PN.HOSP.TC ---
Today's Communication/Plan
-
possible d/c in 24hrs
monitor renal function
monitor for urinary retention
Assessment / Plan
Assessment / Plan
1. Acute toxic metabolic encephalopathy - Improved
Agitation
- patient was sent in for agitation/aggressive behavior by long-term staff
- Patient was hospitalized from 09/20 to 09/23 for similar issues and psychiatric medications were adjusted
- Currently on regimen of clozapine 100 mg at bedtime/gabapentin 100 mg twice daily and Klonopin half milligram every 6 hours
- Patient mentation better today and off of restraints
- Psychiatry evaluated and help appreciated.
2. Urinary retention
- Patient was noted to having urinary retention, possibility of anticholinergic effects of psych meds
- Jessica catheter was difficult to be placed and urology help required
- Patient also been started on flomax
- Jessica catheter has been removed today and patient urinating without issues.
3. VENITA - Improved
- Renal function is improved after Jessica catheter placement
- Patient usually on Lasix at facility, hold for now with renal dysfunction
- Initial renal dysfunction likely from obstructive uropathy
4. Acute hypoxic respiratory insufficiency - resolved
- Improved, continue prn support
5. Essential hypertension
- Maintained on Coreg
6. Hyperlipidemia
- Continue on atorvastatin home dose
DVT PPX - Heparin subq
Full code
Anticipated Discharge: Within 24 hours
Subjective/Interval History
-
Date of Service: October 03, 2024
off of restraints
no other problems overnight
Objective Data
-
Labs:
Laboratory Results
10/03/24
07:08
WBC 5.6
Hgb 11.1 L
Hct 32.9 L
Plt Count 301
Sodium 138
Potassium 4.6
Chloride 103
Carbon Dioxide 30
BUN 21 H
Creatinine 1.1
Glucose 135 H
Calcium 9.5
Vital Signs:
Vital Signs
Temp Pulse Resp BP Pulse Ox
98.0 F 72 16 111/74 93
10/03/24 11:39 10/03/24 11:39 10/03/24 11:39 10/03/24 11:39 10/03/24 11:39
I&O
10/02/24 10/03/24 10/04/24
06:59 06:59 06:59
Intake Total 1320 / 1320 1680 / 1680
Output Total 2800 / 2800 3450 / 3450
Balance -1480 / -1480 -1770 / -1770
Review of Systems
-
Respiratory: Reports No Symptoms
Cardiac: Reports No Symptoms
Abdomen/GI: Reports No Symptoms
Physical Exam
-
HEENT: Negative Oxygen
GI: Soft, Nontender and Nondistended; Negative Organomegaly
Genito-urinary: Other (Jessica catheter in place - clear urine)
Skin: Negative Rash
Neuro: Awake, Alert and Oriented
--- NOTE | 2024-10-03 14:54 | CM ---
Chart reviewed
Pt from [facility]
Monitoring behaviors, labs
Poss d/c tomorrow
Plan - return to [facility] when medically ready
[2024-10-03 15:05] VITALS: BP 120/76
[2024-10-03] MEDS: FLOMAX 0.8 MG PO (17:41)
--- NOTE | 2024-10-03 18:07 | W.PN.UPDATE ---
Update Note
Progress Note Update
Failed trial of void with high PVR
Nurse unable to replace null
20Fr coude placed with 600cc clear urine
Discharge with null in place for outpatient evaluation
--- NOTE | 2024-10-03 18:19 | PTCARENOTE ---
Pt retaining 688mL of urine via bladder scan, urology MD at bedside to place 20FR null in pt. See worklist.
[2024-10-03 19:57] VITALS: BP 114/66
[2024-10-03] MEDS: MELATONIN 10 MG PO (22:52)
[2024-10-03] MEDS: LIPITOR 40 MG PO (22:53)
[2024-10-03] MEDS: CLOZARIL 100 MG PO (22:53)
[2024-10-03 23:10] VITALS: BP 125/84
[2024-10-04 03:10] VITALS: BP 130/77
[2024-10-04 04:58] VITALS: BMI 33.7
[2024-10-04 07:25] VITALS: BP 152/80
[2024-10-04 07:58] LABS: Hematocrit 35.8 % (39.0-52.0); Hemoglobin 11.6 g/dL (13.0-18.0); Mean Corp Hgb Conc. 32.4 g/dL (33.0-37.0); Mean Corpuscular Volume 92.5 fL (80.0-94.0); Mean Platelet Volume 10.9 fL (7.4-10.4); Platelet Count 317 10^3/uL (130-400); Red Blood Cell Count 3.87 10^6/uL (4.70-6.10); Red Cell Dist. Width 12.2 % (11.5-14.5)
[2024-10-04 08:34] LABS: Blood Urea Nitrogen 19 mg/dl (9-20); Carbon Dioxide 31 mmol/L (22-30); Chloride 103 mmol/L (98-107); Estimated Creatinine Clearance 86 ml/min; Glucose 134 mg/dl (70-99); Sodium 140 mmol/L (135-145); eGFR > 60.00
[2024-10-04] MEDS: KLONOPIN 0.5 MG PO ×2 (08:49→19:57)
[2024-10-04] MEDS: PROTONIX 40 MG PO (08:49)
[2024-10-04] MEDS: NEURONTIN 100 MG PO (08:50)
[2024-10-04] MEDS: ASPIR LOW (ENTERIC COATED) 81 MG PO (08:50)
[2024-10-04] MEDS: COREG 25 MG PO ×2 (08:50→19:57)
[2024-10-04] MEDS: COLACE 100 MG PO ×2 (08:50→19:58)
[2024-10-04] MEDS: HEPARIN 5000 UNITS SC ×3 (08:50→23:01)
[2024-10-04] MEDS: NON-FORMULARY ITEM 1 UNIT PO (08:51)
[2024-10-04] MEDS: MIRALAX PO (08:51)
[2024-10-04] MEDS: NON-FORMULARY ITEM 1 MG PO ×2 (08:54→08:56)
[2024-10-04] MEDS: NON-FORMULARY ITEM 1 GRAMS PO (08:58)
--- NOTE | 2024-10-04 11:09 | W.PN.UPDATE ---
Update Note
Progress Note Update
Pt seen, lying in bed, alert, calm, cooperative, speech coherent, thought goal-directed. No overt signs of active psychosis. Pt on reduced dose of Clozapine 100 mg HS since 09/30. Pt failed voiding trial, Jessica had to be placed again by Urology.
Pt aware of his medical issues, is able to discuss logically. Pt c/o feeling anxious, feeling not ready to leave the hospital. Pt asked to try increasing Gabapentin for mood and anxiety.
Imp: Schizoaffective d/o, stable. Clozapine decreased due to side effects. Pt appears psychiatrically stable for discharge. Pt mildly anxious
Rec: Continue reduced dose of Clozapine 100 mg HS, with plan to gradually taper down- can be managed as an outpatient/ at nursing facility after discharge. Will increase Gabapentin to 200 mg BID, continue Klonopin 0.5 mg BID
Will follow
[2024-10-04 11:20] VITALS: BP 142/83
[2024-10-04 12:15] LABS: Glucose - Point of Care 106 mg/dl (70-99)
--- NOTE | 2024-10-04 12:49 | W.PN.HOSP.TC ---
Today's Communication/Plan
-
See note
Possible discharge in 24 to 48 hours
Assessment / Plan
Assessment / Plan
1. Acute toxic metabolic encephalopathy - Improved
Agitation
- patient was sent in for agitation/aggressive behavior by [facility] staff
- Patient was hospitalized from 09/20 to 09/23 for similar issues and psychiatric medications were adjusted
- Currently on regimen of clozapine 100 mg at bedtime/gabapentin 100 mg twice daily and Klonopin half milligram every 6 hours
- Patient mentation better and off of restraints
- Psychiatry evaluated and help appreciated.
2. Urinary retention
- Patient was noted to having urinary retention, possibility of anticholinergic effects of psych meds
- Jessica catheter was difficult to be placed and urology help required
- Patient also been started on flomax
- Jessica catheter was removed yesterday and patient failed voiding trial, Jessica replaced by urology later in the day.
- Urology recommended patient to be discharged with Jessica catheter, will require follow-up with urologist in office
3. VENITA - Improved
- Renal function is improved after Jessica catheter placement
- Patient usually on Lasix at facility, hold for now with renal dysfunction
- Initial renal dysfunction likely from obstructive uropathy
4. Acute hypoxic respiratory insufficiency - resolved
- Improved, continue prn support
5. Essential hypertension
- Maintained on Coreg
6. Hyperlipidemia
- Continue on atorvastatin home dose
7. Nausea/vomiting
Suspected aspiration pneumonitis
- Patient had episode of nausea/vomiting with increased phlegm production today, was down in radiology department when rapid response was called for patient being dyspneic/pale looking
- Chest x-ray images reviewed no overt infiltrate, will provide empiric Unasyn for 3 days
- Troponin/EKG check ordered
DVT PPX - Heparin subq
Full code
Total time spent 55 minutes
Anticipated Discharge: 24 - 48 hours
Subjective/Interval History
-
Date of Service: October 04, 2024
Patient had episode of nausea/vomiting
Noted to be dyspneic and concern of possible aspiration event
Patient was down in the radiology department when rapid response was called as patient was looking pale/diaphoretic and unwell
Objective Data
-
Labs:
Laboratory Results
10/04/24 10/04/24
07:19 12:30
WBC 7.0 Pending
Hgb 11.6 L Pending
Hct 35.8 L Pending
Plt Count 317 Pending
Sodium 140 Pending
Potassium 5.0 Pending
Chloride 103 Pending
Carbon Dioxide 31 H Pending
BUN 19 Pending
Creatinine 1.1 Pending
Glucose 134 H Pending
Calcium 10.0 Pending
Total Bilirubin Pending
AST Pending
ALT Pending
Alkaline Phosphatase Pending
Vital Signs:
Vital Signs
Temp Pulse Resp BP Pulse Ox
98.0 F 83 18 142/83 95
10/04/24 11:20 10/04/24 11:20 10/04/24 11:20 10/04/24 11:20 10/04/24 11:20
I&O
10/03/24 10/04/24 10/05/24
06:59 06:59 06:59
Intake Total 1680 / 1680 1020 / 1020
Output Total 3450 / 3450 1775 / 1775 600 / 600
Balance -1770 / -1770 -755 / -755 -600 / -600
Review of Systems
-
Respiratory: Reports Cough and Trouble Breathing
Cardiac: Reports No Symptoms
Abdomen/GI: Reports No Symptoms
Physical Exam
-
HEENT: Negative Oxygen
Respiratory: Wheezes
Cardiac: Regular Rhythm and S1/S2; Negative Murmur
GI: Soft, Nontender and Nondistended; Negative Organomegaly
Genito-urinary: Other (Jessica catheter in place - clear urine)
Skin: Negative Rash
Neuro: Awake, Alert and Oriented
[2024-10-04 12:51] LABS: Hematocrit 40.8 % (39.0-52.0); Hemoglobin 13.1 g/dL (13.0-18.0); Mean Corp Hgb Conc. 32.1 g/dL (33.0-37.0); Mean Corpuscular Hgb 29.7 pg (27.0-31.0); Mean Corpuscular Volume 92.5 fL (80.0-94.0); Mean Platelet Volume 10.6 fL (7.4-10.4); Platelet Count 390 10^3/uL (130-400); Red Blood Cell Count 4.41 10^6/uL (4.70-6.10); Red Cell Dist. Width 12.1 % (11.5-14.5); White Blood Cell Count 8.3 10^3/uL (4.8-10.8)
[2024-10-04 13:00] LABS: ALT (SGPT) 36 U/L (0-50); AST (SGOT) 26 U/L (17-59); Albumin 3.6 g/dl (3.5-5.0); Alkaline Phosphatase 122 U/L (38-126); Blood Urea Nitrogen 22 mg/dl (9-20); Calcium 10.6 mg/dl (8.4-10.2); Carbon Dioxide 34 mmol/L (22-30); Chloride 103 mmol/L (98-107); Estimated Creatinine Clearance 79 ml/min; Glucose 112 mg/dl (70-99); Potassium 5.3 mmol/L (3.5-5.1); Sodium 144 mmol/L (135-145); Total Bilirubin 0.4 mg/dl (0.2-1.3); Total Protein 6.5 g/dl (6.3-8.2); eGFR > 60.00
[2024-10-04 13:09] LABS: Troponin I < 0.012 ng/ml
[2024-10-04] MEDS: DUONEB INH (14:13)
[2024-10-04 15:15] VITALS: BP 138/77
--- NOTE | 2024-10-04 15:30 | CM ---
Chart reviewed
Increased secretions and cough - chest Xray today
Following labs
Plan - anticipate return to [facility] when medically stable
[2024-10-04] MEDS: FLOMAX 0.8 MG PO (17:55)
[2024-10-04] MEDS: DUONEB 3 ML INH (18:22)
[2024-10-04 19:15] VITALS: BP 128/80
[2024-10-04] MEDS: NEURONTIN 200 MG PO (19:58)
[2024-10-04] MEDS: LIPITOR 40 MG PO (22:47)
[2024-10-04] MEDS: CLOZARIL 100 MG PO (22:47)
[2024-10-04] MEDS: MELATONIN PO ×2 (22:48→23:13)
[2024-10-04 23:49] VITALS: BP 128/77
[2024-10-05] VITALS (8 sets, daily range): BP systolic 111–148; BP diastolic 67–109; PULSE 83; O2SAT 96; BMI 31.9
[2024-10-05] MEDS: DUONEB 3 ML INH ×2 (07:12→19:26)
[2024-10-05 08:07] LABS: Glucose - Point of Care 137 mg/dl (70-99)
[2024-10-05] MEDS: PROTONIX 40 MG PO (09:24)
[2024-10-05] MEDS: KLONOPIN 0.5 MG PO ×2 (09:24→21:23)
[2024-10-05] MEDS: COLACE 100 MG PO ×2 (09:24→21:22)
[2024-10-05] MEDS: ASPIR LOW (ENTERIC COATED) 81 MG PO (09:24)
[2024-10-05] MEDS: COREG 25 MG PO ×2 (09:25→21:22)
[2024-10-05] MEDS: HEPARIN 5000 UNITS SC ×3 (09:25→23:16)
[2024-10-05] MEDS: MIRALAX 17 GRAMS PO (09:25)
[2024-10-05] MEDS: NON-FORMULARY ITEM 1 MG PO (09:26)
[2024-10-05] MEDS: NON-FORMULARY ITEM 1 UNIT PO (09:27)
[2024-10-05] MEDS: NON-FORMULARY ITEM 2 MG PO (09:28)
[2024-10-05] MEDS: NEURONTIN 200 MG PO ×2 (09:29→21:23)
[2024-10-05] MEDS: NON-FORMULARY ITEM 1 GRAMS PO (09:29)
--- NOTE | 2024-10-05 10:29 | W.PN.UPDATE ---
Update Note
Progress Note Update
patient seen chart reviewed. discussed d/w nursing. the patient says he is doing 'much better' he credits this improvement to 'neurontin'. says he is very comfortable. his breakfast tray was in front of him and he had eaten every last drop....told
me he had a good appetite. would not make any changes in his psych meds. ucrrently klonopin o.5 mg bid clozapine 100 mg q hs and gabapentin 200 mg bid. note clozapine does not generally cause eps or td. unlike many of the other antipsychotics it
has little d2 receptor activity . d2 inhibition is the cause of eps/td etc. will see him in am.
--- NOTE | 2024-10-05 10:54 | CM ---
CM following re: discharge planning.
Reviewed pt's chart, met with pt.
Pt stated she is planning to return back to [facility].
PT and OT evaluations pending.
IMM reviewed, placed on chart, pt has a copy.
D/C plan: return back to [facility].
CM will follow with discharge plan updates as hospitalization progresses
[2024-10-05 10:57] LABS: Blood Urea Nitrogen 21 mg/dl (9-20); Calcium 9.8 mg/dl (8.4-10.2); Carbon Dioxide 31 mmol/L (22-30); Chloride 103 mmol/L (98-107); Estimated Creatinine Clearance 77 ml/min; Glucose 155 mg/dl (70-99); Potassium 4.5 mmol/L (3.5-5.1); Sodium 139 mmol/L (135-145); eGFR > 60.00
[2024-10-05 11:43] LABS: Glucose - Point of Care 162 mg/dl (70-99)
--- NOTE | 2024-10-05 13:38 | W.PN.HOSP.TC ---
Today's Communication/Plan
-
pt/ot evaluation
discharge planning next 24-48rhs
Assessment / Plan
Assessment / Plan
1. Acute toxic metabolic encephalopathy - Improved
Agitation
- patient was sent in for agitation/aggressive behavior by alf staff
- Patient was hospitalized from 09/20 to 09/23 for similar issues and psychiatric medications were adjusted
- Currently on regimen of clozapine 100 mg at bedtime/gabapentin 100 mg twice daily and Klonopin half milligram every 6 hours
- Patient mentation better and off of restraints
- Patient dose of gabapentin has been increased.
- Psychiatry evaluated and help appreciated.
2. Urinary retention
- Patient was noted to having urinary retention, possibility of anticholinergic effects of psych meds
- Jessica catheter was difficult to be placed and urology help required
- Patient also been started on flomax
- Jessica catheter was removed yesterday and patient failed voiding trial, Jessica replaced by urology later in the day.
- Urology recommended patient to be discharged with Jessica catheter, will require follow-up with urologist in office
3. VENITA - Improved
- Renal function is improved after Jessica catheter placement
- Patient usually on Lasix at facility, hold for now with renal dysfunction
- Initial renal dysfunction likely from obstructive uropathy
4. Acute hypoxic respiratory insufficiency - resolved
- Improved, continue prn support
5. Essential hypertension
- Maintained on Coreg
6. Hyperlipidemia
- Continue on atorvastatin home dose
7. Nausea/vomiting - resolved
Suspected aspiration pneumonitis - ruled out
- Patient had episode of nausea/vomiting with increased phlegm production today, was down in radiology department when rapid response was called for patient being dyspneic/pale looking
- Chest x-ray images reviewed no overt infiltrate, will provide empiric Unasyn for 3 days
- Troponin/EKG normal.
DVT PPX - Heparin subq
Full code
Anticipated Discharge: Within 24 hours
Subjective/Interval History
-
Date of Service: October 05, 2024
Mentation better today
Not on oxygen
No further episode of chest discomfort/nausea
Objective Data
-
Labs:
Laboratory Results
10/05/24 10/05/24
08:11 10:04
Sodium Cancelled 139
Potassium Cancelled 4.5
Chloride Cancelled 103
Carbon Dioxide Cancelled 31 H
BUN Cancelled 21 H
Creatinine Cancelled 1.2
Glucose Cancelled 155 H
Calcium Cancelled 9.8
Vital Signs:
Vital Signs
Temp Pulse Resp BP Pulse Ox
97.6 F 72 15 111/72 93
10/05/24 12:00 10/05/24 12:00 10/05/24 12:00 10/05/24 12:00 10/05/24 12:00
I&O
10/04/24 10/05/24 10/06/24
06:59 06:59 06:59
Intake Total 1020 / 1020 600 / 600
Output Total 1775 / 1775 2350 / 2350 325 / 325
Balance -755 / -755 -1750 / -1750 -325 / -325
Review of Systems
-
Respiratory: Reports No Symptoms
Cardiac: Reports No Symptoms
Abdomen/GI: Reports No Symptoms
Physical Exam
-
HEENT: Negative Oxygen
Respiratory: Wheezes
Cardiac: Regular Rhythm and S1/S2; Negative Murmur
GI: Soft, Nontender and Nondistended; Negative Organomegaly
Genito-urinary: Other (Jessica catheter in place - clear urine)
Skin: Negative Rash
Neuro: Awake, Alert and Oriented
[2024-10-05] MEDS: FLOMAX 0.8 MG PO (18:41)
[2024-10-05] MEDS: MELATONIN 10 MG PO (21:24)
[2024-10-05] MEDS: LIPITOR 40 MG PO (21:24)
[2024-10-05] MEDS: CLOZARIL 100 MG PO (21:24)
[2024-10-06 03:20] VITALS: BP 108/52
[2024-10-06 05:46] VITALS: BMI 33.3
[2024-10-06 06:24] LABS: Blood Urea Nitrogen 28 mg/dl (9-20); Calcium 9.7 mg/dl (8.4-10.2); Carbon Dioxide 31 mmol/L (22-30); Chloride 102 mmol/L (98-107); Estimated Creatinine Clearance 79 ml/min; Glucose 137 mg/dl (70-99); Potassium 4.8 mmol/L (3.5-5.1); Sodium 138 mmol/L (135-145); eGFR > 60.00
[2024-10-06 07:35] VITALS: BP 137/70
[2024-10-06] MEDS: DUONEB 3 ML INH (07:51)
[2024-10-06] MEDS: COREG 25 MG PO (08:43)
[2024-10-06] MEDS: PROTONIX 40 MG PO (08:43)
[2024-10-06] MEDS: NEURONTIN 200 MG PO (08:43)
[2024-10-06] MEDS: MIRALAX 17 GRAMS PO (08:43)
[2024-10-06] MEDS: ASPIR LOW (ENTERIC COATED) 81 MG PO (08:43)
[2024-10-06] MEDS: COLACE 100 MG PO (08:43)
[2024-10-06] MEDS: HEPARIN 5000 UNITS SC (08:44)
[2024-10-06] MEDS: KLONOPIN 0.5 MG PO (08:44)
[2024-10-06] MEDS: NON-FORMULARY ITEM 1 UNIT PO (08:45)
[2024-10-06] MEDS: NON-FORMULARY ITEM 300 MG PO (08:46)
[2024-10-06] MEDS: NON-FORMULARY ITEM 400 MG PO (08:47)
[2024-10-06] MEDS: NON-FORMULARY ITEM PO ×2 (09:04→09:45)
--- NOTE | 2024-10-06 10:13 | W.PN.UPDATE ---
Update Note
Progress Note Update
patient seen chart reviewed. spoke with nursing. nursing reports patient is doing okay...no issues. i did note this am that he seemed tired. he said he was 'drowsy' and told me 'that gabapentin is strong.'. discussed cutting back am dose to 100
mg. he felt he slept okay...he takes 200 mg q hs and wanted to keep that in place. noted he will have pt ot eval to assess re discharge needs. he continues with very good appetite. asked him to eat slowly and thoughtfully and to stay upright a bit
after he eats to avoid aspiration. will follow
--- NOTE | 2024-10-06 10:46 | W.PN.HOSP.TC ---
Addendum entered and electronically signed by Bobbi Escobar MD 10/11/24 14:07:
o��� �After study respiratory failure has been ruled out
Original Note:
Today's Communication/Plan
-
Discharge to SNF today
Assessment / Plan
Assessment / Plan
1. Acute toxic metabolic encephalopathy - Improved
Agitation
- patient was sent in for agitation/aggressive behavior by retirement staff
- Patient was hospitalized from 09/20 to 09/23 for similar issues and psychiatric medications were adjusted
- Currently on regimen of clozapine 100 mg at bedtime/gabapentin 100 mg twice daily and Klonopin half milligram every 6 hours
- Patient mentation better and off of restraints
- Patient dose of gabapentin has been increased.
- Psychiatry evaluated and help appreciated.
10/06
Psych adjusted gabapentin
2. Urinary retention
- Patient was noted to having urinary retention, possibility of anticholinergic effects of psych meds
- Jessica catheter was difficult to be placed and urology help required
- Patient also been started on flomax
- Jessica catheter was removed yesterday and patient failed voiding trial, Jessica replaced by urology later in the day.
- Urology recommended patient to be discharged with Jessica catheter, will require follow-up with urologist in office
3. VENITA - Improved
- Renal function is improved after Jessica catheter placement
- Patient usually on Lasix at facility, hold for now with renal dysfunction
- Initial renal dysfunction likely from obstructive uropathy
4. Acute hypoxic respiratory insufficiency - resolved
- Improved, continue prn support
5. Essential hypertension
- Maintained on Coreg
6. Hyperlipidemia
- Continue on atorvastatin home dose
7. Nausea/vomiting - resolved
Suspected aspiration pneumonitis - ruled out
- Patient had episode of nausea/vomiting with increased phlegm production today, was down in radiology department when rapid response was called for patient being dyspneic/pale looking
- Chest x-ray images reviewed no overt infiltrate, will provide empiric Unasyn for 3 days
- Troponin/EKG normal.
DVT PPX - Heparin subq
Full code
Anticipated Discharge: Today
Subjective/Interval History
-
Date of Service: October 06, 2024
Patient seen and examined at bedside, patient looks tired but calm and cooperative, patient denies any chest pain or shortness of breath, no abdominal pain, no nausea, no vomiting, no diarrhea or constipation.
Objective Data
-
Labs:
Laboratory Results
10/06/24
05:50
Sodium 138
Potassium 4.8
Chloride 102
Carbon Dioxide 31 H
BUN 28 H
Creatinine 1.2
Glucose 137 H
Calcium 9.7
Vital Signs:
Vital Signs
Temp Pulse Resp BP Pulse Ox
97.6 F 79 16 108/52 100
10/06/24 07:35 10/06/24 08:43 10/06/24 07:52 10/06/24 08:43 10/06/24 07:35
I&O
10/05/24 10/06/24 10/07/24
06:59 06:59 06:59
Intake Total 600 / 600 840 / 840
Output Total 2350 / 2350 2150 / 2150
Balance -1750 / -1750 -1310 / -1310
Physical Exam
-
General: Well Nourished, No Apparent Distress and Comfortable
HEENT: Normocephalic, Atraumatic, Moist Mucous Membranes, No Ptosis, PERRLA and Nose Appears Normal
Respiratory: Clear to Auscultation and Non Labored Respirations
Cardiac: Regular Rhythm and S1/S2
Breast: Deferred by me
GI: Soft, Nontender, Nondistended and Normal Bowel Sounds
Genito-urinary: No Costovertebral Tender
Musculoskeletal: No Clubbing, No Cyanosis and No Edema
Skin: Warm
Neuro: Awake and No Motor Deficits
Psych: Calm
Data Reviewed
-
Diagnostic Radiology: Image personally visualized and interpreted and Report Reviewed by me
CT Scan: Image personally visualized and interpreted and Report Reviewed by me
Ultrasound: Image personally visualized and interpreted and Report Reviewed by me
MRI: Image personally visualized and interpreted and Report Reviewed by me
Medical Tests (Nuc Med, Echo etc): Image personally visualized and interpreted and Report Reviewed by me
Labs: Labs Reviewed by me
Old Records: Reviewed
--- NOTE | 2024-10-06 11:16 | CM ---
Addendum entered by Dai Jones 10/06/24 12:39:
Transport at 4:30PM
Updated pt/family and facility
Original Note:
Pt for discharge today
Updated Jenn at [facility] - can accept
Transport to be arranged
Plan - return to [facility]
R - [phone]
F - [phone]
[2024-10-06 11:20] VITALS: BP 114/65
--- NOTE | 2024-10-06 13:08 | W.DCSUMMARY ---
Discharge Summary
Discharge Data
Date of Admission: 09/30/24
Date of Discharge: 10/06/24
-
Pending Results: No
Hospital Course
Hospital course
Admitted to the hospital with change in status and amputation, seen by psych, adjusted medication with better controlled.
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
Troponin, EKG were negative.
Also with concern of acute urinary retention, seen by urology and placed a Jessica catheter.
Patient condition improved, psych started gabapentin and adjusted to be 100 mg in the morning and 200 at night.
Will be discharged back to rehab
During hospitalization patient was treated from the [facility]
1. Acute toxic metabolic encephalopathy - Improved
Agitation
- patient was sent in for agitation/aggressive behavior by [facility] staff
- Patient was hospitalized from 09/20 to 09/23 for similar issues and psychiatric medications were adjusted
- Currently on regimen of clozapine 100 mg at bedtime/gabapentin 100 mg twice daily and Klonopin half milligram every 6 hours
- Patient mentation better and off of restraints
- Patient dose of gabapentin has been increased.
- Psychiatry evaluated and help appreciated.
10/06
Psych adjusted gabapentin
2. Urinary retention
- Patient was noted to having urinary retention, possibility of anticholinergic effects of psych meds
- Jessica catheter was difficult to be placed and urology help required
- Patient also been started on flomax
- Jessica catheter was removed yesterday and patient failed voiding trial, Jessica replaced by urology later in the day.
- Urology recommended patient to be discharged with Jessica catheter, will require follow-up with urologist in office
3. VENITA - Improved
- Renal function is improved after Jessica catheter placement
- Patient usually on Lasix at facility, hold for now with renal dysfunction
- Initial renal dysfunction likely from obstructive uropathy
4. Acute hypoxic respiratory insufficiency - resolved
- Improved, continue prn support
5. Essential hypertension
- Maintained on Coreg
6. Hyperlipidemia
- Continue on atorvastatin home dose
7. Nausea/vomiting - resolved
Suspected aspiration pneumonitis - ruled out
- Patient had episode of nausea/vomiting with increased phlegm production today, was down in radiology department when rapid response was called for patient being dyspneic/pale looking
- Chest x-ray images reviewed no overt infiltrate, will provide empiric Unasyn for 3 days
- Troponin/EKG normal.
Total time spent on today's encounter was 40 minutes which included time spent in counseling the patient/family regarding diagnosis and treatment plan as listed above, goals of care, and symptom management. Case was discussed with nursing staff,
specialists, and care coordinators/case management. All labs and imaging personally reviewed by me. Remainder the time spent in detailed review of previous records, lab data, imaging, and other medical provider documentation.
Anticipated Discharge: Today
Discharge Plan
-
Patient Disposition: Custodial/SNF
Discharge Diagnosis/Procedures: Acute toxic metabolic encephalopathy.
Urinary retention.
Acute renal failure, improved.
Acute hypoxic respiratory failure, improved.
Diet: Other diet
Additional Diets: Pur�ed diet with thin liquid--> continue speech eval at SNF
Activity: With assistance and As tolerated
Other Services: PT, OT and ST
Referrals:
Dalton Martinez DO [Family Provider] -
Amarjit Restrepo MD [Active] -
Brandon Cartagena DO [Active] -
Prescriptions:
New
gabapentin 100 mg Capsule
100 mg PO DAILY Qty: 0 0RF
gabapentin 100 mg Capsule
200 mg PO HS Qty: 0 0RF
Continued
aspirin 81 mg Tablet,Delayed Release (Dr/Ec)
81 mg PO DAILY
bisacodyl [Dulcolax (bisacodyl)] 10 mg Suppository
10 mg [place] DAILYPRN PRN (Reason: IF NO BM AFTR MOM)
docusate sodium [Colace] 100 mg Capsule
100 mg PO BID
albuterol sulfate 90 mcg/actuation Hfa Aerosol Inhaler
2 puff INHALATION R Q6HPRN PRN (Reason: SOB)
acetaminophen [Tylenol] 325 mg Tablet
650 mg PO Q4HPRN PRN (Reason: mild pain)
magnesium hydroxide [Milk of Magnesia] 400 mg/5 mL Suspension
2,400 mg PO [id number] PRN (Reason: constipation)
pantoprazole [Protonix] 40 mg Tablet,Delayed Release (Dr/Ec)
40 mg PO DAILY
melatonin 5 mg Tablet
10 mg PO HS
ipratropium-albuterol 0.5 mg-3 mg(2.5 mg base)/3 mL Solution For Nebulization
3 ml INHALATION R QID
tamsulosin [Flomax] 0.4 mg Capsule
0.8 mg PO QPM
Fleet Enema 19-7 gram/118 mL Enema
118 ml [place] DAILYPRN PRN (Reason: if no bm aftr dulolcax)
finasteride 5 mg Tablet
5 mg PO DAILY
furosemide [Lasix] 40 mg Tablet
40 mg PO DAILY
atorvastatin [Lipitor] 40 mg Tablet
40 mg PO HS
carvedilol 25 mg Tablet
25 mg PO BID Qty: 60 0RF
polyethylene glycol 3350 17 gram Powder In Packet
17 g PO DAILY Qty: 30 0RF
clonazepam 0.5 mg Tablet
0.5 mg PO Q6HPRN PRN (Reason: agitation) Qty: 20 0RF
Red Grape Powder powder
400 mg PO 1XD
Patient Comments:
pt takes for vasodilation per patient
cholecalciferol (vitamin D3) [Vitamin D3] 125 mcg (5,000 unit) Tablet
5,000 unit PO 1XD
[place] Xl Joint And Muscle Support
300 mg PO 1XD
Multi-Collagen Protein Powder powder
11.8 g PO 1XD
Changed
clozapine 100 mg Tablet
100 mg PO HS Qty: 60 0RF
Discharge Orders:
Discharge Patient (As Directed); Ordered 10/06/24
Ordered By: Bobbi Escobar
Discharge Date and Time
Print Language: PUERTO RICAN
[2024-10-06 15:05] VITALS: BP 114/67
[2024-10-06 15:25] VITALS: BP 114/67
--- NOTE | 2024-10-10 15:29 | PN.CDI ---
CDI
- -
CDI:
Physician Documentation Request
Admit Date: 09/30/24 05:03
Dear Doctor Luz,
Please review the following and provide your response in the progress notes.
Clinical Indicators:
Pt admitted with Acute metabolic encephalopathy and VENITA.
Documentation in the Discharge Summary record on 10/06 includes the diagnosis of respiratory failure. The patient's respiratory clinical indicators were the following:
ER: 'RESPIRATORY: no respiratory distress, clear to auscultation bilaterally.'
10/01 Progress Note: ' Acute hypoxic respiratory insufficiency-
- Patient likely developing minimal pulmonary congestion requiring oxygen support.'
10/04 'Patient had episode of nausea/vomiting with increased phlegm production today, was down in radiology department when rapid response was called for patient being dyspneic/pale looking'
10/06 Discharge Summary, under Discharge Plan: 'Acute hypoxic respiratory failure, improved.'
No noted supplemental oxygen applied to pt. PO 91-99% throughout this admission- noted on RA.
Respiratory Rate mainly 16-20, with rare RR of 22-27 noted.
Recognized standard criteria for respiratory failure includes:
(Source: [facility] Hospitalist Mar/Apr 2013)
ABGs (1 or more)
�PO2 <60 or RA SpO2 <91%
�PcO2 >50 and pH <7.35
�pO2 decrease or pcO2 increase by 10 mmHg from baseline if known Symptoms:
�Tachypnea, SOB, dyspnea
�Pallor or cyanosis
�Anxiety or restlessness
�Use of accessory muscles
�Retractions (grunting in newborns)
�Unable to speak in complete sentences
Supplemental O2 requirement of 40% (5LPM) or more Intubation is not required
Based on the above information and the recognized standard for respiratory failure could you please verify this diagnoses is still accurate and reflective of the patient�s condition to ensure quality of the medical record.
Please clarify in the Progress Notes:
�Respiratory failure is/was present and is a clinical diagnosis based on (please include this additional support in the medical record)
�After study respiratory failure has been ruled out
�Other
Use of terms such as suspected, likely, concern for, or probable (associated with a specific diagnosis that is being evaluated, monitored, or treated as if it exists) are acceptable and can be coded in the inpatient setting, when documented at the
time of discharge.
Thank you,
Armida Portillo RN, BSN
CDI Specialist
[place] [facility]
Please use your independent medical judgment in providing your response.
== END 2024-10-06 17:19 | DRG 698 ==
LOC: 2 NORTH 05:03
PROVIDERS: Hospitalist; ADMITTING PHYSICIAN Internal Medicine; ATTENDING PHYSICIAN General Practice; CONSULT PHYSICIAN Psychiatry & Neurology Psychiatry; EMERGENCY PHYSICIAN Student in an Organized Health Care Education/Training Program; FAMILY PHYSICIAN Internal Medicine; OTHER PHYSICIAN Specialist; OTHER PHYSICIAN Urology
DX: N13.9 Obstructive and reflux uropathy, unspecified (principal); G92.8 Other toxic encephalopathy; I50.32 Chronic diastolic (congestive) heart failure; N17.9 Acute kidney failure, unspecified; I11.0 Hypertensive heart disease with heart failure; E78.00 Pure hypercholesterolemia, unspecified; Z79.899 Other long term (current) drug therapy; K59.00 Constipation, unspecified; J44.9 Chronic obstructive pulmonary disease, unspecified; F31.9 Bipolar disorder, unspecified; F25.9 Schizoaffective disorder, unspecified; R33.9 Retention of urine, unspecified; G89.29 Other chronic pain; Z91.83 Wandering in diseases classified elsewhere; I25.10 Atherosclerotic heart disease of native coronary artery without angina pectoris; Z86.73 Personal history of transient ischemic attack (TIA), and cerebral infarction without residual deficits; N40.0 Benign prostatic hyperplasia without lower urinary tract symptoms; E66.9 Obesity, unspecified; Z68.33 Body mass index [BMI] 33.0-33.9, adult; Z87.891 Personal history of nicotine dependence; Z79.82 Long term (current) use of aspirin; R09.02 Hypoxemia
CPT/HCPCS: 70450; 71046; 76770; 80048; 80053; 80306; 81003; 82077; 82962; 83880; 84484; 85025; 85027; 86803; 87070; 92526; 92610; 93005; 94640; 97116; 97163; 97167; 99285

== ENCOUNTER 2024-10-10 18:58 | Inpatient (IN) | payer MEDICARE, OTHER, SELFPAY ==
[2024-10-10] VITALS (9 sets, daily range): BP systolic 112–150; BP diastolic 65–96; BMI 30.9
--- NOTE | 2024-10-10 14:56 | ED.GENMED ---
History of Present Illness
General
Chief Complaint: Change in Mental Status
Source: ambulance crew
Time Seen by Provider: 10/10/24 14:37
History of Present Illness
History of Present Illness:
64-year-old male sent to the emergency room for concerns for change in his breathing. He evidently had audible wheezing and appeared to have increased work of breathing. Patient resides at [facility]. He seems to attempt to
answer questions appropriately but his speech is quite garbled and difficult to understand. He does have a significant psychiatric history and is on multiple psychiatric medications. He has had hospitalizations here for both agitation and
oversedation.
Past History
Past History
ED Past Medical History: CHF, COPD, HTN, Hypercholesterolemia and Renal failure
ED Past Surgical History: Other (removal L kidney cyst, knee surgery)
Social History
Tobacco: Former smoker
Alcohol: None
Drug: None
Phy Exam
Physical Exam
Physical Exam:
General: Awake, Alert, appears confused, pulling at his monitor leads at wires etc. but is relatively easily reoriented for a brief period of time.
Vitals: unremarkable
Head: Atraumatic
Eyes: Pupils equal, EOMI
Throat: Airway intact, no exudates, dry mucosa
Neck: Trachea midline
Lungs: Decreased breath sounds bilaterally, crackles, expiratory wheeze
Heart: Regular rate, no murmurs
Abd: Soft, Nontender, No pulsatile mass
Neuro: Cranial nerves intact, muscle strength equal bilaterally, cerebellar exam normal
Skin: Warm, dry, no rash
Extremities: pulses equal b/l, 2+ edema
Course
Orders/Labs/Results
Orders:
Orders
10/10/24 14:30
Electrocardiogram (*1) Urgent
Reason for Study: Fatigue / Weakness
EKG- Treatment ONCE
10/10/24 14:51
CR Chest Portable - 1 View Urgent
Comment:
Reason For Exam: cough, sob
Reason Study Needs to be Portable: Unable to Transport
10/10/24 Dinner
Cholesterol Lowering
Cholesterol Lowering: Sodium, 2 Gram
COVID-19 Antigen Urgent
Source: Nasal Swab
Complete Blood Count/With Diff Urgent
Comprehensive Metabolic Panel Urgent
Lactic Acid Q4H
Comment: CANCEL 2nd LACTIC ACID IF 1st LACTIC ACID IS LESS THAN 2
Magnesium Urgent
NT-proBNP Urgent
Troponin I Urgent
Venous Blood Gas Urgent
%Oxygen/Room Air: ra
Blood Culture Q30M
JANE Source: Blood/Venous
Specimen Description:
Blood Culture Q30M
JANE Source: Blood/Venous
Specimen Description:
Ipratropium/Albuterol Sulfate [Duoneb] 3 ml INH R NOW STA
10/10/24 15:34
0.9% Sodium Chloride 1000 ml [Nss] 1,000 ml IV BOLUS
10/10/24 16:19
Dexamethasone Sod Phosphate [Decadron] 10 mg IV NOW STA
Ipratropium/Albuterol Sulfate [Duoneb] 3 ml INH R NOW STA
10/10/24 17:41
Doxycycline [Vibramycin] 100 mg PO NOW STA
10/10/24 18:32
Admit/Transfer Patient As Directed
Co-Sign Provider:
Level of Care: Inpatient admission
Assign to:: Medical/Surgical
Physician / Group: [email or web address]
Diagnosis: SoB, COPD
Reason for Hospitalization: SoB
Expected length of stay greater than two midnights?: Yes
ELOS- Estimated Length of Stay in days: 3
I certify the patient meets the requirements for IP care: Yes
10/10/24 18:41
Code Status As Directed
Resuscitation Status: Full Code
10/10/24 19:40
Acetaminophen [Tylenol] 650 mg PO Q4HPRN PRN
Bisacodyl [Dulcolax] 10 mg RECTAL DAILYPRN PRN
Clonazepam [Klonopin] 0.5 mg PO Q6HPRN PRN
Guaifenesin Solution [Robitussin] 200 mg PO Q4HPRN PRN
Ipratropium/Albuterol Sulfate [Duoneb] 3 ml INH R Q4HPRN PRN
Magnesium Hydroxide [Milk of Magnesia] 30 ml PO [id number] PRN
Phosphate Enema [Fleet Phosphate Enema-Adult] 118 ml RECTAL DAILYPRN PRN
10/10/24 19:40
Activity As Directed
Activity Level: With Assistance
Intake/ Output As Directed
Frequency: Per unit guidelines
Vital Signs As Directed
Frequency: Per unit guidelines
Weight As Directed
Frequency: Daily
Copd Education [RESP] Routine
DX Deep Vein Thrombosis Video Routine
10/10/24 20:00
Carvedilol [Coreg] 25 mg PO BID
Docusate Sodium [Colace] 100 mg PO BID
Heparin 5,000 units SC Q12
Ipratropium/Albuterol Sulfate [Duoneb] 3 ml INH R QID
10/10/24 22:00
Atorvastatin [Lipitor] 40 mg PO HS
Clozapine [Clozaril] 150 mg PO HS
Gabapentin [Neurontin] 200 mg PO HS
Melatonin 10 mg PO HS
10/11/24 06:00
Dexamethasone Sod Phosphate [Decadron] 2 mg IV Q12H
10/11/24 08:00
Aspirin Low Dose EC [Aspir Low (Enteric Coated)] 81 mg PO DAILY
Finasteride [Proscar] 5 mg PO DAILY
Furosemide [Lasix] 40 mg PO DAILY
Gabapentin [Neurontin] 100 mg PO DAILY
Pantoprazole [Protonix] 40 mg PO DAILY
Polyethylene Glycol Powder [Miralax] 17 grams PO DAILY
10/11/24 18:00
Tamsulosin [Flomax] 0.8 mg PO QPM
Abnormal Lab Results
10/10/24
15:00
RBC 4.44 L 10^6/uL
(4.70-6.10)
MPV 10.7 H fL
(7.4-10.4)
Absolute Lymphs (auto) 1.1 L 10^3/uL
(1.2-3.4)
Absolute Monos (auto) 0.7 H 10^3/uL
(0.1-0.6)
Lymphocytes % 17.9 L %
(20.5-51.1)
Monocytes % 11.4 H %
(1.7-9.3)
VBG pCO2 53 H mmHg
(35-48)
VBG pO2 116 H mmHg
(30-50)
VBG HCO3 32.1 H mmol/L
(22-27)
Carbon Dioxide 31 H mmol/L
(22-30)
BUN 25 H mg/dl
(9-20)
Glucose 123 H mg/dl
(70-99)
Alkaline Phosphatase 150 H U/L
(38-126)
10/10/24 15:00
10/10/24 15:00
Vital Signs
Initial and Last Documented VS:
Initial Vital Signs
BP
150/95
10/10/24 14:26
Last Documented Vital Signs
Temp Pulse Resp BP Pulse Ox
98.6 F 90 20 144/78 93
10/10/24 14:31 10/10/24 19:36 10/10/24 19:36 10/10/24 19:00 10/10/24 19:15
MDM/Problems Addressed
Differential Diagnosis Includes:
COPD exacerbation, CHF, symptomatic anemia, COVID or flu
MDM/Problems Addressed:
Patient presents with some confusion, cough and wheezing. He is quite tight on exam. DuoNebs and steroids provided. Chest x-ray does not show any evidence for an acute infection or heart failure. Patient had moderate improvement with treatment
here. However given age, comorbidities will require hospitalization for further nebs, monitoring. No evidence for CO2 retention on VBG.
Chronic conditions affecting care: COPD
*Radiology
Radiology exam reviewed: preliminary read by ED provider (No acute abnormality)
*Pulse Oximetry
Patient hypoxic: no
*EKG
Interpreted by ED Provider?: Yes
Heart Rate: 87
Rate: normal
Rhythm: sinus
[place]: normal axis
Interval: normal interval
QRS Pattern: normal QRS
Ischemia: non-specific ST changes
*Electronic Development Technician Interpretation
Rate: normal
Interpretation: normal
Heart Rate: 87
Rhythm: sinus
*Critical Care Note
Total Time (30-74mins, 75-104mins- exclusive of procedures): Not Applicable
Data Reviewed
Review of Other/Old Records Reveals: Discharge Summary
ED Attending Note
-
Portions of this chart may have been created with voice recognition software.� Occasional wrong word or��sound alike� substitutions may have occurred due to the inherent limitations of voice recognition software.
Discharge Plan
Departure
Patient Disposition: Admit
Date of Disposition: 10/10/24
Time of Disposition: 17:40
Admit to: Med/Surg
Presentation/result/management discussed w/ accepting MD/DO: Hospitalist
Condition: Fair
Discharge Problem:
Acute exacerbation of chronic obstructive pulmonary disease
Interventions
Interventions:
*Risk Screen - Suicide Last Done: 10/10/24 14:31
*General Assessment Last Done: 10/10/24 14:31
*Neglect/Abuse Screening Last Done: 10/10/24 14:31
*ED- Fall Risk Assessment Last Done: 10/10/24 14:31
*ED COVID-19 Vaccine History Last Done: 10/10/24 15:05
*Nursing Disposition Last Done: 10/10/24 19:42
ED- Pulmonary Assessment Last Done: 10/10/24 14:31
ED- Neurological Assessment Last Done: 10/10/24 15:05
ED Swallowing Screen Last Done: 10/10/24 18:31
Discharge Date and Time
Discharge Date/Time: 10/10/24 19:43
[2024-10-10] MEDS: DUONEB 3 ML INH ×2 (15:14→17:01)
[2024-10-10 15:16] LABS: Venous Blood Gas B.E. 5.7 mmol/L (-4 to +4); Venous Blood Gas HCO3 32.1 mmol/L (22-27); Venous Blood Gas O2 Sat % 99.9 %; Venous Blood Gas pCO2 53 mmHg (35-48); Venous Blood Gas pH 7.39 (7.32-7.43); Venous Blood Gas pO2 116 mmHg (30-50)
[2024-10-10 15:20] LABS: % Basophils 0.5 % (0-2); % Eosinophils 1.3 % (0-6); % Immature Granulocytes 0.3 % (0-0.5); % Lymphocytes 17.9 % (20.5-51.1); % Monocytes 11.4 % (1.7-9.3); % Neutrophils 68.6 % (42.2-75.2); Absolute Eosinophils 0.1 10^3/uL (0-0.7); Absolute Lymphocytes 1.1 10^3/uL (1.2-3.4); Absolute Monocytes 0.7 10^3/uL (0.1-0.6); Absolute Neutrophils 4.2 10^3/uL (1.4-6.5); Hematocrit 39.6 % (39.0-52.0); Hemoglobin 13.1 g/dL (13.0-18.0); Mean Corp Hgb Conc. 33.1 g/dL (33.0-37.0); Mean Corpuscular Hgb 29.5 pg (27.0-31.0); Mean Corpuscular Volume 89.2 fL (80.0-94.0); Mean Platelet Volume 10.7 fL (7.4-10.4); Nucleated Red Blood Cells % 0 % (-); Platelet Count 301 10^3/uL (130-400); Red Blood Cell Count 4.44 10^6/uL (4.70-6.10); Red Cell Dist. Width 11.9 % (11.5-14.5); White Blood Cell Count 6.1 10^3/uL (4.8-10.8)
[2024-10-10 15:30] LABS: Lactic Acid 0.9 mmol/L (0.7-2.0)
[2024-10-10 15:31] LABS: ALT (SGPT) 38 U/L (0-50); AST (SGOT) 23 U/L (17-59); Albumin 4.1 g/dl (3.5-5.0); Alkaline Phosphatase 150 U/L (38-126); Blood Urea Nitrogen 25 mg/dl (9-20); Calcium 9.6 mg/dl (8.4-10.2); Carbon Dioxide 31 mmol/L (22-30); Chloride 98 mmol/L (98-107); Glucose 123 mg/dl (70-99); Potassium 4.4 mmol/L (3.5-5.1); Sodium 139 mmol/L (135-145); Total Bilirubin 0.5 mg/dl (0.2-1.3); eGFR > 60.00
[2024-10-10 15:41] LABS: COVID-19 Antigen Negative (Negative)
[2024-10-10 15:42] LABS: NT-proBNP 48.3 pg/ml; Troponin I < 0.012 ng/ml
[2024-10-10] MEDS: NSS 1000 IV (16:20)
[2024-10-10] MEDS: DECADRON 10 MG IV (17:01)
[2024-10-10] MEDS: VIBRAMYCIN 100 MG PO (18:12)
--- NOTE | 2024-10-10 18:26 | HPS.HSE ---
Family Physician
-
Family Physician: Dalton Martinez
Chief Complaint
-
change in his breathing
- audible wheezing
History of Present Illness
64M Res of [facility] HX significant for diastolic CHF, COPD not on home O2, bipolar and schizophrenia seen at ER
- change in his breathing
- audible wheezing and appeared to have increased work of breathing.
- answer questions appropriately but his speech is quite garbled and difficult to understand.
HX significant psychiatric history and is on multiple psychiatric medications.
He has had hospitalizations here for both agitation and oversedation.
Medical History
Past Medical History
Past Medical History: Reports Other
Additional Past Medical History:
Hypertension
ASCVD / Prior CVA
Schizoaffective Disorder
Bipolar Disorder
Chronic HFpEF
COPD
BPH
Obesity
Past Surgical History: Reports Other
Additional Past Surgical History:
Unknown
Social History
Tobacco: Former Smoker
Alcohol: None
Drug: None
Family History
Family History: Unable to Obtain
Allergies / Home Medications
Allergies reflects when Allergies were last updated in [employer].
Home Medications with original date entered in [employer]
Allergy/Medication List:
Allergies
Allergy/AdvReac Type Severity Reaction Status Date / Time
aripiprazole Allergy Unknown Verified 09/20/24 00:41
thiothixene Allergy Unknown Verified 09/20/24 00:41
Home Medications
1. Acetaminophen 325 mg tablet (Tylenol) 650 mg PO Q4HPRN PRN mild
pain 04/22/24.
2. Albuterol sulfate 90 mcg/actuation aerosol inhaler 2 puff
inhalation R Q6HPRN PRN SOB 04/22/24.
3. Aspirin 81 mg tablet,delayed release 81 mg PO DAILY Blood Clot
Prevention/Tx 04/22/24.
4. Bisacodyl 10 mg rectal suppository (Dulcolax (bisacodyl)) 10 mg
[place] DAILYPRN PRN IF NO BM AFTR MOM 04/22/24.
5. Docusate sodium 100 mg capsule (Colace) 100 mg PO BID
Constipation 04/22/24.
6. Magnesium hydroxide 400 mg/5 mL oral suspension (Milk of
Magnesia) 2,400 mg PO [id number] PRN constipation 04/22/24.
7. Melatonin 5 mg tablet 10 mg PO HS Sleep 04/22/24.
8. Pantoprazole 40 mg tablet,delayed release (Protonix) 40 mg PO
DAILY Gastrointestinal Issue 04/22/24.
9. Atorvastatin 40 mg tablet (Lipitor) 40 mg PO HS cholesterol
09/20/24.
10. Finasteride 5 mg tablet 5 mg PO DAILY Urinary Issue 09/20/24.
11. Furosemide 40 mg tablet (Lasix) 40 mg PO DAILY Fluid
Retention/Swelling 09/20/24.
12. Ipratropium 0.5 mg-albuterol 3 mg (2.5 mg base)/3 mL
nebulization soln 3 ml inhalation R QID Lung/Breathing Issues
09/20/24.
13. Sodium phosphates 19 gram-7 gram/118 mL enema (Fleet Enema) 118
ml [place] DAILYPRN PRN if no bm aftr dulcolax 09/20/24.
14. Tamsulosin 0.4 mg capsule (Flomax) 0.8 mg PO QPM Urinary Issue
09/20/24.
15. Carvedilol 25 mg tablet 25 mg PO BID #60 tabs 09/23/24.
16. Clonazepam 0.5 mg tablet 0.5 mg PO Q6HPRN PRN agitation #20
tabs 09/23/24.
17. Clozapine 100 mg tablet 200 mg (2 x 100 mg) PO HS #60 tabs
09/23/24.
18. Polyethylene glycol 3350 17 gram oral powder packet 17 g PO
DAILY #30 ea 09/23/24.
Review of Systems
-
Constitutional: Reports No Symptoms
EENT: Reports No Symptoms
Respiratory: Reports See HPI
Cardiac: Reports No Symptoms
Abdomen/GI: Reports No Symptoms
: Reports No Symptoms
Musculoskeletal: Reports No Symptoms
Skin: Reports No Symptoms
Neurological: Reports No Symptoms
Endocrine: Reports No Symptoms
Hematologic/Lymphatic: Reports No Symptoms
Psych: Reports No Symptoms
Physical Exam
Vital Signs
Vital Signs
Temp Pulse Resp BP Pulse Ox
98.6 F 87 25 137/91 94
10/10/24 14:31 10/10/24 15:00 10/10/24 15:00 10/10/24 15:00 10/10/24 14:57
Physical Exam
General: Well Developed, Well Nourished and No Apparent Distress
HEENT: NormoCephalic, Moist mucous membranes and Atraumatic
Respiratory: Clear
Cardiac: S1/S2 and Regular Rhythm; No Murmur or Rub
GI: Soft, Non Tender, Non Distended and Normal Bowel Sounds; No Organomegaly
Rectal: Deferred by Provider
Musculoskeletal: No Clubbing, No Cyanosis and No Edema
Skin: No Rash
Neuro: Nonfocal/grossly intact
Laboratory Results
-
10/10/24 15:00
10/10/24 15:00
Laboratory Results
Lactic Acid 0.9 mmol/L (0.7-2.0) 10/10/24 15:00
Total Bilirubin 0.5 mg/dl (0.2-1.3) 10/10/24 15:00
AST 23 U/L (17-59) 10/10/24 15:00
ALT 38 U/L (0-50) 10/10/24 15:00
Alkaline Phosphatase 150 U/L (38-126) H 10/10/24 15:00
Troponin I < 0.012 ng/ml 10/10/24 15:00
Data Reviewed
-
Diagnostic Radiology: Report Reviewed by me
Lab Data: Labs Reviewed by me
Old Records: Reviewed
Impression/Plan
-
Vital Signs
Temp Pulse Resp BP Pulse Ox
98.6 F 87 25 137/91 94
10/10/24 14:31 10/10/24 15:00 10/10/24 15:00 10/10/24 15:00 10/10/24 14:57
Data
Unremarkable CBC
CO2 31
unremarkable Cr and eGFR
NEG TPNI
NEG proBNP
NEG LA
VB.39/pCO2 53/ pO2 116/ HCO3 32
CXR
1. No acute pulmonary process identified.
2. Moderate hiatal hernia.
Last hospitalist admission: 09/30/24 - 10/06/24
DC DX:
Acute toxic metabolic encephalopathy.
Urinary retention.
Acute renal failure, improved.
Acute hypoxic respiratory failure, improved.
ASSESSMENT & PLAN
SoB likely COPD flare - mild
COPD HX- NOT on Home O2
Unremarkable ABG with chr hypercapnia
POx in low 90s on RA
NEG CXR for acute pathology
- DuoNeb qid and PRN
- Empiric PO Doxy
- IV Decadron 2mg q12h
- Goal POx low 90s with P2 supplement to keep necessary hypoxic drive
HX bipolar and schizophrenia disorder
HX Behavioral dysfunction with agitation
- Patient was hospitalized from 09/20 to 09/23 for similar issues and psychiatric medications were adjusted
- Current regimen: clozapine 150 HS. Gabapentin 100 mg AM + 200mg HS. Clonazepam 0.5mg q6hprn
Urinary retention HX due to presumed anticholinergic effects of psych meds
- HX difficult Jessica catheter placement need urologist help
- currently on F cath due to failed VT on last admission
- on Flomax
- follow-up with urologist in office
Essential HTN
- on on Coreg
Hyperlipidemia
- on PROGRAM STRATEGIST atorvastatin
DVT PX - SQH
Full code
IP MS
[2024-10-10] MEDS: DUONEB INH (20:03)
[2024-10-10] MEDS: COREG 25 MG PO (20:55)
[2024-10-10] MEDS: COLACE 100 MG PO (20:56)
[2024-10-10] MEDS: HEPARIN 5000 UNITS SC (20:57)
[2024-10-10] MEDS: LIPITOR 40 MG PO (21:54)
[2024-10-10] MEDS: MELATONIN 10 MG PO (21:56)
[2024-10-10] MEDS: NEURONTIN 200 MG PO (21:56)
[2024-10-10] MEDS: CLOZARIL 150 MG PO (21:56)
--- NOTE | 2024-10-10 22:00 | PTCARENOTE ---
Received patient from ED at approx 1945. Patient was a brisket puller from stretcher onto bed as he didn't feel like he could walk. Patient was AAA x3. Oriented to room. Bed alarm in place. Call smiley within reach.
[2024-10-10] MEDS: KLONOPIN 0.5 MG PO (23:57)
[2024-10-11] MEDS: TYLENOL 650 MG PO ×3 (00:50→22:44)
[2024-10-11] MEDS: DUONEB 3 ML INH ×3 (01:07→19:15)
[2024-10-11 02:20] VITALS: BP 145/84
[2024-10-11 02:35] LABS: Hematocrit 35.3 % (39.0-52.0); Hemoglobin 11.7 g/dL (13.0-18.0)
--- NOTE | 2024-10-11 03:15 | PTCARENOTE ---
At approx 0205, patient pulled out Jessica catheter. Balloon was still inflated and on the floor. Moderate-large amount of blood on patient's genitals, groin and lower abdomen. Patient stated that he pulled it out because it was bothering him and he
didn't like it being there. Cleaned up blood, but site continued to bleed. HIDE BUYER notified via [place] [employer]. Advised to obtain vitals, perform bladder scan and draw STAT labs. Vitals at 0220 145/84 HR 93 RR 16 Temp 98.0 and 96% on room air. Bladder scan
147. HIDE BUYER advised to bladder scan again around 0330/0400. May need to contact urology due to hx of difficult Jessica placement.
--- NOTE | 2024-10-11 03:45 | PTCARENOTE ---
Limited admission assessment due to limited patient cooperation answering questions. Difficult to understand patient's response at times due to garbled and disorganized speech. Patient reports that his POA is his sister Lizy [phone] and that
his brother Tyson is his emergency contact [phone].
--- NOTE | 2024-10-11 04:25 | PTCARENOTE ---
Patient bleeding from penis again. Large amount of blood on the patient and in the bed. Patient denies touching area. States that he sat up and felt it push out. large blood clot observed on penis. Patient was cleaned up. Clot left in place. Bladder
scan showed 345mls in his bladder. Patient agreed to not sit up and to lay still in bed. TABLE CUT OFF SAW OPERATOR made aware and will contact urology.
[2024-10-11 04:39] VITALS: BP 135/77
--- NOTE | 2024-10-11 04:46 | W.PN.UPDATE ---
Update Note
Progress Note Update
Around 3:15 RN notified patient pulled his Jessica out, was still inflated and noted moderate bleeding at the site which had stopped, Hgb 11.7/35.3 BP 145/84 HR 93 RR 16 Temp 98.0 and 96% on RA Bladder scan 140.
Around 4:15, patient sat up, noticed bleeding again, Bladder scan 345 CC this time, and patient reported feeling discomfort. BP 135/77, T 98.4, Pulse 81, RR 16 Pulse ox 95% room air
Urologist chief librarian extension department notified as patient has hx of difficulty Jessica placement. Dr. Meredith advised to attempt Jessica placement once.
Attempt unsuccessful, Dr. Meredith made aware. Repeat labs
--- NOTE | 2024-10-11 05:20 | PTCARENOTE ---
Per WASTEWATER PROJECT MANAGER, Dr. Meredith provided instructs to attempt to place Jessica. He will come in if unsuccessful. Jessica placement attempt was unsuccessful. WASTEWATER PROJECT MANAGER notified.
[2024-10-11 05:33] VITALS: BMI 30.9
--- NOTE | 2024-10-11 06:21 | CONS.URO ---
Consultation
-
Performing Provider: Masoud
Reason for Consultation: Jessica trauma
Medical History
History of Present Illness
Dr Pérez's consultation note from previous, recent admission: ' 64M prior urologic history of voiding issues, BPH
On flomax and finasteride for years
He believes he had some type of prostate or urinary tract procedure in the past when he lived elsewhere
He has multiple psychiatric diagnoses and does not live independently
Poor historian and unable to say where and who took care of his past urologic issues
He has multiple recent ER visits and hospital admits which include urinary issues including gross hematuria, urinary retention, UTI.'
He was discharged on 10/06/[address] after failed voiding trial -- 600 ml PVR.
Was contacted by MAID SUPERVISOR: patient pulled out Jessica with balloon inflated, resulting in gross bleeding per urethra. Unspecified provider reportedly attempted to replace Jessica, without success.
Pt states that he feels urge to void but cannot.
He states that he will not pull Jessica catheter out again.
He provides verbal consent for me to attempt to place Jessica.
Past Medical History
Past Medical History: Other (Hypertension ASCVD / Prior CVA Schizoaffective Disorder Bipolar Disorder Chronic HFpEF COPD BPH Obesity)
Allergies/Home Medications
Allergies
Allergy/AdvReac Type Severity Reaction Status Date / Time
aripiprazole Allergy Unknown Verified 10/10/24 14:35
thiothixene Allergy Unknown Verified 10/10/24 14:35
Home Medications
�Medication �Instructions �Recorded �Confirmed �Type
acetaminophen 325 mg tablet 650 mg PO Q4HPRN PRN mild pain 04/22/24 10/10/24 History
(Tylenol)
albuterol sulfate 90 mcg/actuation 2 puff inhalation R Q6HPRN PRN SOB 04/22/24 10/10/24 History
aerosol inhaler
aspirin 81 mg tablet,delayed 81 mg PO DAILY Blood Clot 04/22/24 10/10/24 History
release Prevention/Tx
bisacodyl 10 mg rectal suppository 10 mg IA DAILYPRN PRN IF NO BM 04/22/24 10/10/24 History
(Dulcolax (bisacodyl)) AFTR MOM
docusate sodium 100 mg capsule 100 mg PO BID Constipation 04/22/24 10/10/24 History
(Colace)
magnesium hydroxide 400 mg/5 mL 2,400 mg PO [id number] PRN 04/22/24 10/10/24 History
oral suspension (Milk of Magnesia) constipation
melatonin 5 mg tablet 10 mg PO HS Sleep 04/22/24 10/10/24 History
pantoprazole 40 mg tablet,delayed 40 mg PO DAILY Gastrointestinal 04/22/24 10/10/24 History
release (Protonix) Issue
atorvastatin 40 mg tablet (Lipitor) 40 mg PO HS cholesterol 09/20/24 10/10/24 History
finasteride 5 mg tablet 5 mg PO DAILY Urinary Issue 09/20/24 10/10/24 History
furosemide 40 mg tablet (Lasix) 40 mg PO DAILY Fluid 09/20/24 10/10/24 History
Retention/Swelling
sodium phosphates 19 gram-7 118 ml IA DAILYPRN PRN if no bm 09/20/24 10/10/24 History
gram/118 mL enema (Fleet Enema) aftr dulolcax
tamsulosin 0.4 mg capsule (Flomax) 0.8 mg PO QPM Urinary Issue 09/20/24 10/10/24 History
carvedilol 25 mg tablet 25 mg PO BID #60 tabs 09/23/24 10/10/24 Rx
clonazepam 0.5 mg tablet 0.5 mg PO Q6HPRN PRN agitation #20 09/23/24 10/10/24 Rx
tabs
polyethylene glycol 3350 17 gram 17 g PO DAILY #30 ea 09/23/24 10/10/24 Rx
oral powder packet
cholecalciferol (vitamin D3) 125 5,000 unit PO DAILY Supplement 10/04/24 10/10/24 History
mcg (5,000 unit) tablet (Vitamin
D3)
fish, borage, flaxseed oils-omega 1 cap PO DAILY Supplement ##0 10/04/24 10/10/24 History
3,6,9 comb no.1 1,200 mg capsule
([place] 3-6-9)
gabapentin 100 mg capsule 100 mg PO DAILY #0 caps 10/06/24 10/10/24 Rx
gabapentin 100 mg capsule 200 mg (2 x 100 mg) PO HS #0 caps 10/06/24 10/10/24 Rx
clozapine 100 mg tablet 150 mg PO HS 10/10/24 10/10/24 History
Physical Exam
Vital Signs
Vital Signs
Temp Pulse Resp BP Pulse Ox
98.4 F 81 16 135/77 95
10/11/24 04:39 10/11/24 04:39 10/11/24 04:39 10/11/24 04:39 10/11/24 04:39
Physical Exam
Adult male supine in bed.
Conversant.
Phallus: copious blood at meatus and on contiguous tissues.
standard prep and drape
14 Fr Jessica placed without difficulty with prompt return of urine.
Assessment / Plan
-
Chronic urinary retention.
Jessica trauma
Jessica successfully replaced.
Pt to f/u with Dr Pérez as an outpatient.
Data Reviewed
-
Old Records: Reviewed
--- NOTE | 2024-10-11 06:40 | PTCARENOTE ---
Urologist re-placed Jessica. Soft wrist restraints applied at 0615. Patient aware of reason for restraints and verbalizes understanding. Able to put 2 fingers under wrist restraint. Hands are warm with normal capillary refill.
[2024-10-11 06:54] LABS: Hematocrit 35.3 % (39.0-52.0); Hemoglobin 11.8 g/dL (13.0-18.0); Mean Corp Hgb Conc. 33.4 g/dL (33.0-37.0); Mean Corpuscular Hgb 29.2 pg (27.0-31.0); Mean Corpuscular Volume 87.4 fL (80.0-94.0); Mean Platelet Volume 10.4 fL (7.4-10.4); Platelet Count 295 10^3/uL (130-400); Red Blood Cell Count 4.04 10^6/uL (4.70-6.10); Red Cell Dist. Width 11.7 % (11.5-14.5); White Blood Cell Count 5.5 10^3/uL (4.8-10.8)
[2024-10-11 07:00] VITALS: BP 136/89
[2024-10-11 07:06] LABS: Blood Urea Nitrogen 26 mg/dl (9-20); Calcium 9.8 mg/dl (8.4-10.2); Carbon Dioxide 29 mmol/L (22-30); Chloride 104 mmol/L (98-107); Estimated Creatinine Clearance 83 ml/min; Glucose 155 mg/dl (70-99); Potassium 4.5 mmol/L (3.5-5.1); Sodium 139 mmol/L (135-145); eGFR > 60.00
[2024-10-11] MEDS: DUONEB INH ×2 (07:18→10:53)
[2024-10-11] MEDS: DECADRON 2 MG IV (07:37)
[2024-10-11] MEDS: PROTONIX 40 MG PO (08:37)
[2024-10-11] MEDS: ASPIR LOW (ENTERIC COATED) 81 MG PO (08:38)
[2024-10-11] MEDS: NEURONTIN 100 MG PO (08:38)
[2024-10-11] MEDS: COLACE 100 MG PO ×2 (08:39→20:39)
[2024-10-11] MEDS: LASIX 40 MG PO (08:39)
[2024-10-11] MEDS: COREG 25 MG PO ×2 (08:42→20:48)
[2024-10-11] MEDS: MIRALAX PO ×2 (08:42→08:51)
[2024-10-11] MEDS: PROSCAR 5 MG PO (08:42)
[2024-10-11] MEDS: SENOKOT 17.2 MG PO ×2 (08:43→20:40)
--- NOTE | 2024-10-11 10:58 | PTOTSP ---
Dysphagia Eval
Mild oral stage differences related to missing dentition. Patient c/o difficulty swallowing with puree with overt cough response x2, later denied. Dysphagia risk factors present (i.e., COPD flare; CHF, schizoaffective disorder, prior CVA, hiatal
hernia). Given admission with SOB and concern for COPD flare, consider objective swallowing assessment.
1. Continue regular, thin diet
2. Meds as best tolerated
3. Strategies: upright to 90 degrees, supervision, small sips/bites, slow rate, reflux precautions
4. Oral care 3x daily
5. Video swallow study
[2024-10-11 11:18] LABS: Vitamin B12 501 pg/ml (239-931)
[2024-10-11] MEDS: MIRALAX 17 GRAMS PO (13:19)
[2024-10-11 14:34] VITALS: BP 126/71
--- NOTE | 2024-10-11 15:49 | CM ---
transitions manager rn reviewed patient's chart and met with patient and patient was admitted from [facility] where patient has been for 3 years, patient requested some assist with adl's and uses a walker to ambulate. Patient to return to skilled nursing
[facility] when stable.
PCP: Dr Martinez
Pharmacy; [facility]
Plan; Patient to return to [facility] when stable, referral sent in [facility].
[facility]
Report [phone]
--- NOTE | 2024-10-11 16:15 | W.PN.HOSP.TC ---
Today's Communication/Plan
-
Off restraints since morning
Patient agreeable that he will not touch the Jessica again
Bowel regimen ordered
Stop steroids
If stable discharge back to long-term tomorrow
Assessment / Plan
Assessment / Plan
64-year-old male brought to emergency room for change in his breathing. He had audible wheezing and increased work of breathing. Patient is a resident of [facility]. He has had multiple admissions with psychiatric issues
Chest x-ray-no acute pulmonary process. Moderate hiatal hernia
CVS: S1-S2 normal
Chest: CTA B/L good breath sounds. No wheezing
Abdomen: Soft, NT , Bowel sounds present
Extremities: No edema, normal pulses
TEXTILE MACHINERY SALES REPRESENTATIVE: Non focal exam
Bleeding around the Jessica catheter. Bag is clear
# Shortness of breath
No hypoxia. Patient is on room air
Being treated as COPD exacerbation
COPD exacerbation rule out
DuoNebs 4 times daily and as needed
Decadron To be stopped as chest is completely clear to auscultation and chest x-ray is unremarkable.
Speech evaluation to rule out aspiration
# Schizoaffective disorder
Behavioral dysfunction
History of multiple admissions to psychiatric hospitals in the past
Psychiatry was following during admissions
Continue clozapine 150 mg at night, gabapentin 100 mg in the morning and 200 mg at night, clonazepam 0.5 mg every 6 hours as needed
# Urinary retention presumably secondary to anticholinergic medicines
Failed voiding trial last admission was discharged with Jessica
Patient pulled out Jessica with balloon inflated resulting in gross hematuria
Urology placed Jessica catheter
Failed voiding trial
Mild bleeding around Jessica catheter
Continue Flomax, finasteride
Outpatient urology follow-up
# Hypertension-continue Coreg
# Chronic HFpEF-continue Lasix, beta-blockers
# History of CVA-continue aspirin and statin
# Hyperlipidemia-continue atorvastatin
# GERD/hiatal hernia-continue PPI
# Obesity per BMI criteria
# Smoking-cessation counseling
# DVT prophylaxis-SCDs
# Full code
Discussed with nursing
Anticipated Discharge: Within 24 hours
Subjective/Interval History
-
Date of Service: October 11, 2024
Objective Data
-
Labs:
Laboratory Results
10/11/24
06:41
WBC 5.5
Hgb 11.8 L
Hct 35.3 L
Plt Count 295
Sodium 139
Potassium 4.5
Chloride 104
Carbon Dioxide 29
BUN 26 H
Creatinine 1.1
Glucose 155 H
Calcium 9.8
Vital Signs:
Vital Signs
Temp Pulse Resp BP Pulse Ox
98.1 F 80 16 126/71 97
10/11/24 14:34 10/11/24 15:22 10/11/24 15:22 10/11/24 14:34 10/11/24 15:22
I&O
10/10/24 10/11/24 10/12/24
06:59 06:59 06:59
Intake Total 720 / 720 480 / 480
Output Total 925 / 925
Balance -205 / -205 480 / 480
[2024-10-11] MEDS: FLOMAX 0.8 MG PO (17:05)
[2024-10-11] MEDS: LIPITOR 40 MG PO (20:39)
[2024-10-11] MEDS: MELATONIN 10 MG PO (20:39)
[2024-10-11] MEDS: TUMS CHEWABLE TABLET 200 MG PO (20:39)
[2024-10-11] MEDS: CLOZARIL 150 MG PO (20:40)
[2024-10-11] MEDS: NEURONTIN 200 MG PO (20:40)
[2024-10-11] MEDS: KLONOPIN 0.5 MG PO (20:46)
[2024-10-12] MEDS: ATIVAN 0.5 MG IV (00:47)
[2024-10-12] MEDS: NSS (PRESERVATIVE FREE) 0.25 ML IV (00:52)
--- NOTE | 2024-10-12 01:41 | PTCARENOTE ---
Patient impulsive and agitated throughout the night attempting to pull out his Jessica and get out of bed. Patient requiring PRN medications; moreover, bilateral soft wrist restraints ordered. This RN will continue to evaluate for 1:1 need and/or
further intervention.
--- NOTE | 2024-10-12 04:07 | W.PN.UPDATE ---
Update Note
Progress Note Update
RN reports patient screaming out and trying to get out of bed. Patient seen and evaluated, AA, constantly trying to get out, hallucinating, trying to pull things out of his body like sheets, gown. lungs clear, regular rate, + BS, Jessica draining
well. Patient reports pain in his knee joints. Advised RN to give Tylenol.
one hour later RN reported patient continuing to pull Jessica catheter out, B/L restraints in place
Patient continuos to be restless, fidgety, no twitching noted, likely SE of psych medications. Received clozapine 150mg PO and Clonazepam 0.5mg.
stable VS, will order Ativan 0.5mg IVx1. Patient resting in bed at present.
[2024-10-12 05:59] VITALS: BMI 30.9
[2024-10-12 06:47] LABS: Mean Corp Hgb Conc. 32.4 g/dL (33.0-37.0); Mean Corpuscular Hgb 29.1 pg (27.0-31.0); Mean Corpuscular Volume 89.9 fL (80.0-94.0); Platelet Count 290 10^3/uL (130-400); Red Blood Cell Count 3.78 10^6/uL (4.70-6.10); White Blood Cell Count 8.1 10^3/uL (4.8-10.8)
[2024-10-12 07:11] LABS: Blood Urea Nitrogen 31 mg/dl (9-20); Calcium 10.1 mg/dl (8.4-10.2); Carbon Dioxide 31 mmol/L (22-30); Chloride 102 mmol/L (98-107); Estimated Creatinine Clearance 76 ml/min; Glucose 139 mg/dl (70-99); Potassium 4.7 mmol/L (3.5-5.1); Sodium 142 mmol/L (135-145); eGFR > 60.00
[2024-10-12] MEDS: DUONEB 3 ML INH ×3 (07:13→15:28)
[2024-10-12 07:51] VITALS: BP 131/81
[2024-10-12] MEDS: NEURONTIN 100 MG PO (08:56)
[2024-10-12] MEDS: COREG 25 MG PO (08:56)
[2024-10-12] MEDS: MIRALAX PO ×2 (08:56→09:02)
[2024-10-12] MEDS: ASPIR LOW (ENTERIC COATED) 81 MG PO (08:56)
[2024-10-12] MEDS: PROTONIX 40 MG PO (08:56)
[2024-10-12] MEDS: COLACE 100 MG PO (08:57)
[2024-10-12] MEDS: PROSCAR 5 MG PO (08:57)
[2024-10-12] MEDS: SENOKOT 17.2 MG PO (08:57)
[2024-10-12] MEDS: LASIX 40 MG PO (08:57)
--- NOTE | 2024-10-12 09:25 | PTOTSP ---
Speech Language Pathology
VIDEOFLUOROSCOPIC SWALLOWING EXAMINATION (VSE) completed. Oropharyngeal swallow WFL. Minimal pharyngeal residue with transient supraglottic penetration (PAS 2) with thin liquids. No persistent penetration or any aspiration.
Recommend:
(1) Continue regular solids/thin liquids
(2) General aspiration precautions
(3) Meds as tolerated
(4) STEREO COMPILER to sign off. Please reconsult as indicated
--- NOTE | 2024-10-12 10:22 | W.PN.HOSP.TC ---
Today's Communication/Plan
-
can d/c back to SNF
Assessment / Plan
Assessment / Plan
64-year-old male brought to emergency room for change in his breathing. He had audible wheezing and increased work of breathing. Patient is a resident of [facility]. He has had multiple admissions with psychiatric issues
Chest x-ray-no acute pulmonary process. Moderate hiatal hernia
# Shortness of breath
No hypoxia. Patient is on room air
Being treated as COPD exacerbation
COPD exacerbation rule out
DuoNebs 4 times daily and as needed
Decadron To be stopped as chest is completely clear to auscultation and chest x-ray is unremarkable.
Speech evaluation to rule out aspiration
# Schizoaffective disorder
Behavioral dysfunction
History of multiple admissions to psychiatric hospitals in the past
Psychiatry was following during admissions
Continue clozapine 150 mg at night, gabapentin 100 mg in the morning and 200 mg at night, clonazepam 0.5 mg every 6 hours as needed
# Urinary retention presumably secondary to anticholinergic medicines--chronic null cath--placed last admission (09/30-10/06) due to failed voiding trial
Failed voiding trial last admission was discharged with Null
Patient pulled out Null with balloon inflated resulting in gross hematuria
Urology placed Null catheter
Failed voiding trial
Mild bleeding around Null catheter
Continue Flomax, finasteride
Outpatient urology follow-up
# Hypertension-continue Coreg
# Chronic HFpEF-continue Lasix, beta-blockers
# History of CVA-continue aspirin and statin
# Hyperlipidemia-continue atorvastatin
# GERD/hiatal hernia-continue PPI
# Obesity per BMI criteria
# Smoking-cessation counseling
# DVT prophylaxis-SCDs
# Full code
Discussed with nursing
Anticipated Discharge: Today
Subjective/Interval History
-
Date of Service: October 12, 2024
pt without c/o
Objective Data
-
Labs:
Laboratory Results
10/12/24
05:50
WBC 8.1
Hgb 11.0 L
Hct 34.0 L
Plt Count 290
Sodium 142
Potassium 4.7
Chloride 102
Carbon Dioxide 31 H
BUN 31 H
Creatinine 1.2
Glucose 139 H
Calcium 10.1
Vital Signs:
max temp for 24 hours
10/11/24
14:34
Temp 98.1 F
Vital Signs
Temp Pulse Resp BP Pulse Ox
98.1 F 87 18 131/81 96
10/12/24 07:51 10/12/24 08:56 10/12/24 07:51 10/12/24 08:56 10/12/24 07:51
I&O
10/11/24 10/12/24 10/13/24
06:59 06:59 06:59
Intake Total 720 / 720 1400 / 1400
Output Total 925 / 925 2600 / 2600
Balance -205 / -205 -1200 / -1200
Review of Systems
-
All other systems: Reviewed and negative
Physical Exam
-
General: Well Developed, Well Nourished and No Apparent Distress
HEENT: Normocephalic and Atraumatic
Respiratory: Clear to Auscultation; Negative Wheezes or Rhonchi
Cardiac: Regular Rhythm and S1/S2; Negative Murmur
GI: Soft, Nontender, Nondistended and Normal Bowel Sounds
Genito-urinary: Null (clear urine)
Musculoskeletal: No Clubbing and No Cyanosis; Negative No Edema (2+ LE edema bilaterally)
Neuro: Awake
Psych: Calm
--- NOTE | 2024-10-12 13:41 | W.DCSUMMARY ---
Discharge Summary
Discharge Data
Date of Admission: 10/10/24
Date of Discharge: 10/12/24
-
Pending Results: No
Hospital Course
Primary care physician : Dalton Martinez
Principal Discharge diagnosis : Chronic obstructive pulmonary disease exacerbation
Chronic Discharge diagnosis : Schizoaffective disorder, chronic urinary retention with chronic Null catheter present on admission, essential hypertension, chronic heart failure with preserved ejection fraction without exacerbation, history of
stroke, hyperlipidemia, gastroesophageal reflux disease/hiatal hernia, obesity
Hospital Course : Patient was a 64-year-old male resident of [facility] who was noted to have a change in his breathing. He was found to have audible wheezing and appeared to have increased work of breathing. He has a significant
psychiatric history and was on multiple psychiatric medications. He has had multiple hospitalizations here for agitation and oversedation. Last admission he also had urinary retention and required Null catheter which was continued on this
admission. Patient was admitted.
Problem #1: Chronic obstructive pulmonary disease exacerbation. Patient did not have hypoxia and was given DuoNebs 4 times daily as needed. Decadron was started but stopped as he was not having any wheezing and chest x-ray was unremarkable.
Speech evaluation was done to rule out aspiration and the patient passed his video swallow.
Problem #2: All other medical issues. These include Schizoaffective disorder, chronic urinary retention with chronic Null catheter present on admission, essential hypertension, chronic heart failure with preserved ejection fraction without
exacerbation, history of stroke, hyperlipidemia, gastroesophageal reflux disease/hiatal hernia, obesity. These medical issues were stable during his hospitalization. Medications were continued as able. Null catheter was continued as well.
Unfortunately, patient pulled out the Null catheter and urology was consulted to replace it. He should follow-up with urology as an outpatient.
Patient is stable for discharge back to his [facility] at this time. If there are any questions regarding this dictation or his hospital stay, please do not hesitate to call. Our office number is [phone].
Time for discharge 20 minutes.
Important imaging findings :
CHEST X-RAY IMPRESSION:
1. No acute pulmonary process identified.
2. Moderate hiatal hernia.
Discharge Plan
-
Patient Disposition: [facility]/SNF
Discharge Diagnosis/Procedures: Chronic obstructive pulmonary disease exacerbation, schizoaffective disorder with behavioral dysfunction, chronic urinary retention with Unll catheter on admission placed last admission, essential hypertension,
chronic heart failure with preserved ejection fraction, history of stroke, hyperlipidemia, gastroesophageal reflux disease/hiatal hernia, obesity
Condition: Good
Diet: 2 Gram Sodium
Activity: As tolerated
Driving Restrictions: No driving
Bathing Restrictions: None
Activity Restrictions/Additional Instructions:
KEEP null cath at discharge--follow up with urology
Referrals:
Dalton Martinez DO [Family Provider] - in less than 1 week
Magdiel Pérez MD [Active] - (call to schedule office appointment during second half of October)
Prescriptions:
Continued
aspirin 81 mg Tablet,Delayed Release (Dr/Ec)
81 mg PO DAILY
bisacodyl [Dulcolax (bisacodyl)] 10 mg Suppository
10 mg SC DAILYPRN PRN (Reason: IF NO BM AFTR MOM)
docusate sodium [Colace] 100 mg Capsule
100 mg PO BID
albuterol sulfate 90 mcg/actuation Hfa Aerosol Inhaler
2 puff INHALATION R Q6HPRN PRN (Reason: SOB)
acetaminophen [Tylenol] 325 mg Tablet
650 mg PO Q4HPRN PRN (Reason: mild pain)
magnesium hydroxide [Milk of Magnesia] 400 mg/5 mL Suspension
2,400 mg PO [id number] PRN (Reason: constipation)
pantoprazole [Protonix] 40 mg Tablet,Delayed Release (Dr/Ec)
40 mg PO DAILY
melatonin 5 mg Tablet
10 mg PO HS
tamsulosin [Flomax] 0.4 mg Capsule
0.8 mg PO QPM
Fleet Enema 19-7 gram/118 mL Enema
118 ml SC DAILYPRN PRN (Reason: if no bm aftr dulolcax)
finasteride 5 mg Tablet
5 mg PO DAILY
furosemide [Lasix] 40 mg Tablet
40 mg PO DAILY
atorvastatin [Lipitor] 40 mg Tablet
40 mg PO HS
polyethylene glycol 3350 17 gram Powder In Packet
17 g PO DAILY Qty: 30 0RF
clonazepam 0.5 mg Tablet
0.5 mg PO Q6HPRN PRN (Reason: agitation) Qty: 20 0RF
cholecalciferol (vitamin D3) [Vitamin D3] 125 mcg (5,000 unit) Tablet
5,000 unit PO DAILY
[place] 3-6-9 1,200 mg Capsule
1 cap PO DAILY Qty: 0
clozapine 100 mg tablet
150 mg PO HS
carvedilol 25 mg Tablet
25 mg PO BID Qty: 60 0RF
gabapentin 100 mg Capsule
100 mg PO DAILY Qty: 0 0RF
gabapentin 100 mg Capsule
200 mg PO HS Qty: 0 0RF
Discharge Orders:
Discharge Patient (As Directed); Ordered 10/12/24
Ordered By: Irina Bland
Discharge Date and Time
Print Language: ARMENIAN
--- NOTE | 2024-10-12 14:44 | CM ---
music manager reviewed patient's chart and met with patient and spoke with admissions at [facility], patient had required restraints over night but patient is doing well today, patient was admitted from [facility] where patient
has been for many years, and plan is for patient to return to [facility] today.
[facility]
Report [phone]

Plan; Patient to return to [facility].
[2024-10-12] MEDS: TYLENOL 650 MG PO (15:55)
[2024-10-12 16:00] VITALS: BP 138/84
[2024-10-12] MEDS: FLOMAX 0.8 MG PO (16:50)
== END 2024-10-12 17:18 | DRG 191 ==
LOC: 4 WEST ACU 18:58
PROVIDERS: Hospitalist; Nurse Practitioner Gerontology; ADMITTING PHYSICIAN Internal Medicine; ATTENDING PHYSICIAN Internal Medicine; CONSULT PHYSICIAN Specialist; EMERGENCY PHYSICIAN Emergency Medicine; FAMILY PHYSICIAN Internal Medicine
DX: J44.1 Chronic obstructive pulmonary disease with (acute) exacerbation (principal); I50.32 Chronic diastolic (congestive) heart failure; F25.9 Schizoaffective disorder, unspecified; I11.0 Hypertensive heart disease with heart failure; Z86.73 Personal history of transient ischemic attack (TIA), and cerebral infarction without residual deficits; E78.00 Pure hypercholesterolemia, unspecified; K21.9 Gastro-esophageal reflux disease without esophagitis; K44.9 Diaphragmatic hernia without obstruction or gangrene; E66.9 Obesity, unspecified; Z68.30 Body mass index [BMI] 30.0-30.9, adult; Z79.82 Long term (current) use of aspirin; N40.0 Benign prostatic hyperplasia without lower urinary tract symptoms; Z87.891 Personal history of nicotine dependence; F31.9 Bipolar disorder, unspecified; I25.10 Atherosclerotic heart disease of native coronary artery without angina pectoris; Z11.52 Encounter for screening for COVID-19
CPT/HCPCS: 71045; 74230; 80048; 80053; 82607; 82805; 83605; 83735; 83880; 84484; 85014; 85018; 85025; 85027; 87040; 87070; 87811; 92610; 92611; 93005; 94640; 96374; 99285

== ENCOUNTER → 2024-12-21 09:09 | Outpatient (REF) | payer MEDICARE, OTHER, SELFPAY | LOC: RAD 09:09 | PROVIDERS: ATTENDING PHYSICIAN Nurse Practitioner Adult Health; FAMILY PHYSICIAN Internal Medicine | DX: R93.89 Abnormal findings on diagnostic imaging of other specified body structures (principal); R06.02 Shortness of breath | CPT/HCPCS: 71260; Q9967 ==